=== PATIENT | female | born 2000 | race Caucasian/White ===

== ENCOUNTER 2019-11-25 09:10 | Emergency (ER) | payer OTHER, SELFPAY ==
[2019-11-25 09:24] VITALS: BP 139/73; PULSE 111; RESP 16; TEMP 36.9; O2SAT 99
--- NOTE | 2019-11-25 09:32 | ED.EAR ---
HPI - Ear Problem General Chief complaint: Ear Stated complaint: ear pain Time Seen by Provider: 11/25/19 09:25 Source: patient and RN notes reviewed Mode of arrival: ambulatory Limitations: no limitations History of Present Illness HPI Narrative: Patient presents today with a 2-day history of left ear pain. Reports symptoms have been worsening since onset. Denies drainage. Denies any other symptoms to include fever, cough, congestion, rhinorrhea, sore throat, headache. She has been putting peroxide in her ear without relief. Reports pain increases when she bites down. She also uses Flonase for her seasonal allergies. Patient is currently 33 weeks . Denies any recent antibiotic use. MD Complaint: ear pain Location: left ear Related Data Allergies Allergy/AdvReac Type Severity Reaction Status Date / Time No Known Allergies Allergy Verified 11/25/19 09:36 Review of Systems Review of Systems: Narrative: CONSTITUTIONAL: Denies body aches, fever, chills, or sweats. EYES: Denies visual changes, redness, or discharge. ENT: Denies rhinorrhea, congestion, sore throat. + Left ear pain CARDIOVASCULAR: Denies chest pain, palpitations, or edema. RESPIRATORY: Denies cough or dyspnea. GASTROINTESTINAL: Denies abdominal pain, nausea, vomiting, or diarrhea. GENITOURINARY: Denies dysuria or hematuria. SKIN: Denies rash, itching, or wounds. MUSCULOSKELETAL: Denies back pain, joint pain, or myalgia. NEUROLOGIC: Denies headache, numbness, tingling, or weakness. PSYCH: Denies depression or anxiety. PMFSH Comments At time of signature, I have reviewed and agree with nursing past medical, surgical, social and family history unless otherwise noted. Please see nursing chart for further information. There is no relevant family history pertinent to the presenting complaint Exam Narrative: Exam Narrative: GENERAL: Well-appearing, well-nourished, and in no acute distress. HEAD: Normocephalic, atraumatic. EYES: EOMI. No redness or drainage. Conjunctivae normal. ENT: Mucous membranes pink and moist. Nares clear. No rhinorrhea. Right TM normal. Left TM erythematous and bulging with purulent material. Throat normal. Uvula midline. NECK: Normal AROM. Supple. No lymphadenopathy. CHEST: No respiratory distress. Clear to auscultation. HEART: Regular rate and rhythm. No murmur appreciated. Normal peripheral pulses. ABDOMEN: normal active bowel sounds. Gravid abdomen MUSCULOSKELETAL: No bony tenderness. EXTREMITIES: Normal range of motion. No edema. SKIN: Warm, dry, no rash. Capillary refill normal. Normal skin turgor. NEURO: No focal deficits. Alert and oriented x3. Gait steady. PSYCH: Normal affect. No signs of depression or anxiety. Course Vital Signs Vital signs: Vital Signs Temperature 98.5 F 11/25/19 09:24 Pulse Rate 111 H 11/25/19 09:24 Respiratory Rate 16 11/25/19 09:24 Blood Pressure 139/73 11/25/19 09:24 Pulse Oximetry 99 11/25/19 09:24 Temperature 98.5 F 11/25/19 09:24 Pulse Rate 111 H 11/25/19 09:24 Respiratory Rate 16 11/25/19 09:24 Blood Pressure 139/73 11/25/19 09:24 Pulse Oximetry 99 11/25/19 09:24 Reviewed. Pt has been instructed to follow up with her PCP regarding her elevated blood pressure today. Medical Decision Making Differential Diagnosis Differential Diagnosis: Otitis media, otitis externa, ruptured TM, serous otitis, eustachian tube dysfunction, cerumen impaction, dental pain Vital Signs Vital Signs: Vital Signs Temperature 98.5 F 11/25/19 09:24 Pulse Rate 111 H 11/25/19 09:24 Respiratory Rate 16 11/25/19 09:24 Blood Pressure 139/73 11/25/19 09:24 Pulse Oximetry 99 11/25/19 09:24 Temperature 98.5 F 11/25/19 09:24 Pulse Rate 111 H 11/25/19 09:24 Respiratory Rate 16 11/25/19 09:24 Blood Pressure 139/73 11/25/19 09:24 Pulse Oximetry 99 11/25/19 09:24 Critical Care Time Critical Care Time Critical Care Time: No Discharg
== END 2019-11-25 09:41 | disposition home or self-care (01) ==
PROVIDERS: Emergency Provider Nurse Practitioner
DX: H66.002 Acute suppurative otitis media without spontaneous rupture of ear drum, left ear (principal)
CPT/HCPCS: 99213; G0463

== ENCOUNTER 2020-01-08 05:28 | Inpatient (IN) | payer MEDICAID, SELFPAY ==
[2020-01-08] VITALS (87 sets, daily range): BP systolic 100–149; BP diastolic 54–94; PULSE 80–140; RESP 16; TEMP 36.1–37.1; O2SAT 98–100; BMI 32.8
[2020-01-08 08:33] LABS: Basophils Percent Auto 0.3 % (0.2-1.2); Eosinophils Absolute Auto 0.1 K/mm3 (0-0.3); Eosinophils Percent Auto 0.6 % (0-4.4); Hematocrit 33.8 % (37.0-47.0); Hemoglobin 10.5 g/dL (12.0-15.0); Immature Granulocyte Percent A 0.9 % (0-0.5); Lymphocytes Percent Auto 12.1 % (18.3-44.2); Mean Corpuscular HGB Conc 31.1 g/dl (32-36); Mean Corpuscular Hemoglobin 22.8 pg (26-34); Mean Corpuscular Volume 73.5 fl (80-100); Mean Platelet Volume 9.9 fl (7.4-10.4); Monocytes Absolute Auto 0.8 K/mm3 (0.1-0.6); Monocytes Percent Auto 7.1 % (2.6-8.5); Neutrophils Absolute Auto 9.1 K/mm3 (1.3-6.7); Platelet Count Result 272 k/mm3 (150-375); Red Cell Distribution Width 14.9 % (11.5-14.5); White Blood Count 11.6 K/mm3 (4.5-10.0)
[2020-01-08] MEDS: LACTATED RINGERS 1,000 ML 125 ML IV CONT (08:38)
[2020-01-08] MEDS: OXYTOCIN 30 UNITS/NS 500 ML 30 UNITS/500 ML BAG IV CONT (08:39)
--- NOTE | 2020-01-08 08:51 | LDADM ---
This patient, Janeth Peter, was admitted to Labor/Delivery/Recovery 105 on 01/08/20 at 05:28. Plans for labor, pain management and were discussed with patient. Patient/family oriented to hospital policies and general routines including ID bracelet, bed and alarms, visiting hours, pain management, procedures, bathroom and other care routines, personal items, smoking policy, room service/diet and guest tray routines, infant security routines, and visiting hours. Patient/Family are encouraged to report perceived risks to care and to ask questions if they do not understand what they are told or what they should do. See OBIX for further documentation.
--- NOTE | 2020-01-08 10:18 | WPDHPUPDATE1 ---
History and Physical Update Update Date/Time: 01/08/20 10:18 19 yo at 39w3d who presents in labor. She reports regular contractions starting since 0300. She denies any LOF or vaginal bleeding. She endorses good FM. her has been uncomplicated thus far. History and Physical has been reviewed, including an updated exam of the patient. There are NO changes in the patient's condition. Risks, benefits, and alternatives have been discussed and questions answered. Patient agrees to proceed with procedure. A/P: 19 yo at 39w3d who presents in labor admit to L&D routine admission orders Rh + GBS neg FHT cat 1 ctx q 5-7 min on toco will start pitocin for labor augmentation cvx 3 cm, AROM for clear fluid continuous EFM
--- NOTE | 2020-01-08 11:06 | WPDANESEPP ---
Anes - Eval Pre Procedure Procedure: Labor Pain Management Date/Time: 01/08/20 11:06 Surgeon: True Preop Diagnosis: Pain during labor Pre Op Diagnosis: Labor Patient Data Age: 19 Gender: F Height: 5 ft 8 in Weight: 97.75 kg Last Vital Signs Temp 98.5 F 01/08/20 10:00 Pulse 96 01/08/20 11:01 BP 121/77 01/08/20 11:01 Allergies Allergy/AdvReac Type Severity Reaction Status Date / Time No Known Allergies Allergy Verified 11/25/19 09:36 Home Medications Medication Instructions Recorded Confirmed Type No Home Medications 01/08/20 01/08/20 History Laboratory Tests 01/08/20 01/08/20 01/08/20 08:15 08:15 08:15 WBC 11.6 K/mm3 H K/mm3 (4.5-10.0) RBC 4.60 M/mm3 M/mm3 (4.2-5.4) Hgb 10.5 g/dL L g/dL (12.0-15.0) Hct 33.8 % L % (37.0-47.0) MCV 73.5 fl L fl (80-100) MCH 22.8 pg L pg (26-34) MCHC 31.1 g/dl L g/dl (32-36) RDW 14.9 % H % (11.5-14.5) Plt Count 272 k/mm3 k/mm3 (150-375) MPV 9.9 fl fl (7.4-10.4) Immature Gran % (Auto) 0.9 % H % (0-0.5) Neut % (Auto) 79.0 % H % (45.5-73.1) Lymph % (Auto) 12.1 % L % (18.3-44.2) [place] % (Auto) 7.1 % % (2.6-8.5) Eos % (Auto) 0.6 % % (0-4.4) Baso % (Auto) 0.3 % % (0.2-1.2) Lymph # (Auto) 1.40 K/mm3 K/mm3 (0.9-3.2) [place] # (Auto) 0.8 K/mm3 H K/mm3 (0.1-0.6) Eos # (Auto) 0.1 K/mm3 K/mm3 (0-0.3) Baso # (Auto) 0.0 K/mm3 K/mm3 (0.0-0.1) Abs Immat Gran (auto) 0.10 K/mm3 H K/mm3 (0.00-0.031) Absolute Neuts (auto) 9.1 K/mm3 H K/mm3 (1.3-6.7) Absolute Nucleated RBC 0.0 K/mm3 K/mm3 (0.0-0.012) Nucleated RBC % 0.0 % % (0.0-0.2) RPR Pending Blood Type O Positive Antibody Screen Negative : gestational age (EDC 01/12/20) Patient hx anesthesia problems: none Family hx anesthesia problems: none PMFSH Past Medical History Medical History (Updated 01/08/20 @ 11:08 by Kristen Riddle CRNA) Anxiety Asthma seasonal Depression Miscarriage Recurrent UTI Surgical History Surgical History (Updated 01/08/20 @ 11:08 by Kristen Riddle CRNA) History of elective X 2 Family History Family History (Updated 12/19/19 @ 14:34 by Karthik Chang RN) Father Asthma Heart disease Hypertension Mother Asthma Sibling Asthma VSD (ventricular septal defect) Epilepsy Social History Social History Smoking status: Never smoker Substance use: never Gender identity (if verbalized by the patient): Female Spiritual care concerns: No Exam Day of Procedure 01/08/20 11:06
--- NOTE | 2020-01-08 16:38 | PM.OBPRVD ---
OB - Delivery Note Procedure Procedure: Patient pushed for a spontaneous vaginal delivery. The fetus was delivered atraumatically and placed on the maternal abdomen. The cord was clamped and cut after 1 minute of life. The cord was double clamped and cut and a segment of cord was collected for cord gases. Cord blood was collected for blood type and Coomb's testing. The placenta delivered spontaneously and was noted to be intact. The perineum was inspected and there was a 2nd degree perineal laceration. The laceration was repaired with 2-0 vicryl in the usual fashion. The uterus was firm and good hemostasis was noted. The patient and fetus were stable in the delivery room. Intrapartal events: None Induction method: none Delivery augmentation: rupture of membranes and pitocin Delivery monitor: external FHT Route of delivery: Episiotomy description: None Laceration description: Perineal - 2nd Degree Delivery repair: vicryl Specimen: No Estimated blood loss (mL): 250 Disposition: floor () Complications: No immediate complications Baby Date of : 01/08/20 Time of : 16:20 Weeks of gestation at delivery: 39 gender: Male Weight (pounds): 7 Weight (ounces): 8 presentation: vertex position: Right Occiput Anterior Placenta delivery description: Spontaneous cord vessel description: 3 Vessels score one minute: 8 score five minutes: 9
[2020-01-08] MEDS: OXYTOCIN 30 UNITS/NS 500 ML 30 UNITS/500 ML BAG 125 UNITS (17:22)
--- NOTE | 2020-01-08 19:33 | OBPPTRN ---
Patient transferred to post room #284 via wheelchair. Support person present. Oriented to unit, room, information board, rooming in, admission packet and security measures. Patient verbalizes understanding.Infant with patient.
[2020-01-08] MEDS: IBUPROFEN 600 MG TABLET PO (23:40)
[2020-01-09] MEDS: ACETAMINOPHEN 325 MG TABLET 650 MG PO (04:43)
[2020-01-09 05:54] LABS: Hematocrit 27.5 % (37.0-47.0); Hemoglobin 8.5 g/dL (12.0-15.0)
--- NOTE | 2020-01-09 07:03 | P.PNOB_ITS ---
OB - PN: Subj Subjective Date/time seen: 01/09/20 07:03 Patient comments: no complaints, pain well controlled and tolerating diet [place] feeding status: exclusively breast feeding Narrative: patient doing well this AM. No complaints. Pain is well controlled. She reports minimal bleeding. She is ambulating and voiding without difficulty. She is tolerating PO. She denies N/V, fever, chills. OB - PN: Obj Data Labs CBC & Chem 7: 01/09/20 04:36 Labs: Laboratory Results - last 24 hr 01/08/20 01/08/20 01/09/20 08:15 08:15 04:36 WBC 11.6 H RBC 4.60 Hgb 10.5 L 8.5 L Hct 33.8 L 27.5 L MCV 73.5 L MCH 22.8 L MCHC 31.1 L RDW 14.9 H Plt Count 272 MPV 9.9 Immature Gran % (Auto) 0.9 H Neut % (Auto) 79.0 H Lymph % (Auto) 12.1 L [place] % (Auto) 7.1 Eos % (Auto) 0.6 Baso % (Auto) 0.3 Lymph # (Auto) 1.40 [place] # (Auto) 0.8 H Eos # (Auto) 0.1 Baso # (Auto) 0.0 Abs Immat Gran (auto) 0.10 H Absolute Neuts (auto) 9.1 H Absolute Nucleated RBC 0.0 Nucleated RBC % 0.0 Blood Type O Positive Antibody Screen Negative OB - PN A/P Plan day: 1 Plan: routine care Comments: patient doing well H/H stable plan for circumcision today, maternal consent obtained continue routine care Time Spent With Patient Time: Total time spent is greater than 50% in coordination of care (as documented) at patient's floor/unit and/or counseling patient: Time with patient: less than 15 minutes Review of Systems Review of Systems: All systems reviewed & are unremarkable except as noted in HPI and below Exam Const: General: comfortable and no acute distress Resp: Effort & Inspection: normal respiratory effort Cardio: Rate: regular rate GI: GI Palp: Yes Soft to palpation and No Tenderness to palpation present (GI) Auscultation: normal bowel sounds Other: fundus firm and below umbilicus. Psych: Affect: normal affect
[2020-01-09 07:34] LABS: Rapid Plasma Reagin Non-Reactive (NonReactive)
[2020-01-09 08:25] VITALS: BP 115/68; PULSE 89; RESP 16; TEMP 36.8; O2SAT 100
[2020-01-09] MEDS: POLYSACCHARIDE IRON COMPLEX 150 MG CAPSULE PO (08:49)
[2020-01-09] MEDS: DOCUSATE SODIUM 100 MG CAPSULE PO (08:52)
--- NOTE | 2020-01-09 09:35 | WPDANLDPN2 ---
Anes-Prog Note L&D Date/Time: 01/09/20 09:35 Comfortable throughout: labor and delivery Neuraxial method: epidural Epidural/Spinal procedure site: clean & non-tender Neuro status: Neuro function grossly intact. Cardiovascular status: normal Respiratory status: normal Airway patency: baseline Mental status: baseline Post-Op hydration status: normal Vital Signs: Last Vital Signs Temp 36.8 C 01/09/20 08:25 Pulse 89 01/09/20 08:25 Resp 16 01/09/20 08:25 BP 115/68 01/09/20 08:25 Pulse Ox 100 01/09/20 08:25 I/O: Intake & Output 01/08/20 01/09/20 01/09/20 23:59 07:59 15:59 Intake Total 1500 Output Total 100 Balance 1400 Post-procedural complaints: none Patient feedback: Patient satisfied with anesthetic care.
--- NOTE | 2020-01-09 11:44 | P.DS_ITS ---
OB - DS: Summary OB Procedures : None OB Procedures Intrapartum: Spontaneous Vag Delivery OB Procedures: : None Status at Discharge Functional status at discharge: independent ambulation Overall status at discharge: patient is back to baseline Time Spent with Patient Time attestation: Total time spent providing and/or coordinating discharge services: Time spent: Less than 30 minutes Exam Const: General: comfortable and no acute distress Resp: Effort & Inspection: normal respiratory effort Auscultation: clear to auscultation bilaterally Cardio: Rate: regular rate GI: GI Palp: Yes Soft to palpation Auscultation: normal bowel sounds Other: Fundus firm below umbilicus Psych: Appearance: grossly normal Mental Status: mental status grossly normal Affect: normal affect DS: Data Data Completed and Pending Labs on day of discharge: Labs from last 24 hours 01/09/20 01/08/20 04:36 08:15 Hgb 8.5 L Hct 27.5 L RPR Non-reactive Discharge Plan Discharge Discharging Clinician: Zain Biswas Patient Disposition: Home, Self-Care Activity: pelvic rest Diet: regular Discharge Instructions: call or return for temperature >100.4, bleeding >2 pads/hr for 2 hrs, pain not controlled with medications, signs/symptoms of mastitis Patient Instructions: Antibiotic Form, Vaginal Delivery (DC) Stand Alone Forms: General Discharge Information Follow-up/Referrals: Zain Biswas MD [Physician] - Discharge Medications: New acetaminophen [Mapap (acetaminophen)] 325 mg Tablet 650 mg PO Q6H PRN (Reason: Mild Pain (1-3) Or Headache) Qty: 30 RF: 0 Dermoplast (with menthol) 20-0.5 % Aerosol 1 spray topical PRN PRN (Reason: Perineal Discomfort) Qty: 1 RF: 0 ibuprofen 600 mg Tablet 600 mg PO Q6H PRN (Reason: Cramping) Qty: 30 RF: 0 No Action No Home Medications RF: 0 Date of admission: 01/08/20 05:28 Primary Care Provider: PHYSICIAN,LIFE INSURANCE AGENT Admitting Provider: Zain Biswas Attending physician on admission: Zain Biswas
[2020-01-09] MEDS: IBUPROFEN 600 MG TABLET PO (15:33)
[2020-01-10 12:58] VITALS: BP 116/65; PULSE 97; RESP 20; TEMP 36.3; O2SAT 100
== END 2020-01-09 17:24 | disposition home or self-care (01) | DRG 560 ==
LOC: ANHLDR 08:07 → ANHOB2 19:37
PROVIDERS: Admitting Provider Student in an Organized Health Care Education/Training Program; Visit Provider Student in an Organized Health Care Education/Training Program
DX: O70.1 Second degree perineal laceration during delivery (principal); Z3A.39 39 weeks gestation of pregnancy; Z37.0 Single live birth
CPT/HCPCS: 36415; 85014; 85018; 85025; 86592; 86850; 86900; 86901; A9270; J2590; J2795; J7120

== ENCOUNTER 2022-01-20 08:04 | Emergency (ER) | payer OTHER, SELFPAY ==
--- NOTE | 2022-01-20 08:05 | ED.URI ---
HPI - URI/Sore Throat General Chief Complaint: Upper Respiratory Infection Stated Complaint: uri Time Seen by Provider: 01/20/22 08:05 Source: patient Mode of arrival: ambulatory Limitations: no limitations History of Present Illness HPI Narrative: Ms. Peter is a 21-year-old female patient presenting to the clinic today with complaints of possible upper respiratory infection. She reports cough, congestion, sore throat, and bilateral ear pressure/pain x 4 days. She denies any fever or chills. Has tested for Covid twice and was negative. Last test was yesterday. No known exposure to anyone with covid, strep, or flu. MD elicited complaint: sore throat and nasal congestion Related Data Allergies Allergy/AdvReac Type Severity Reaction Status Date / Time No Known Allergies Allergy Verified 01/20/22 08:10 Review of Systems Review of Systems: Pertinent positives per HPI. Patient denies any fever, chills, rash, headache, visual changes, dizziness, shortness of breath, chest pain, palpitations, nausea, vomiting, diarrhea, constipation, abdominal pain, or any urinary issues. [facility] Past Medical History Medical History Anxiety Asthma seasonal Depression Miscarriage Recurrent UTI Surgical History Surgical History History of elective X 2 Family History Family History Father Asthma Heart disease Hypertension Mother Asthma Sibling Asthma VSD (ventricular septal defect) Epilepsy Social History Social History Smoking status: Never smoker Substance use: never Gender identity (if verbalized by the patient): Female Spiritual care concerns: No Comments At the time of my signature, I reviewed and agree with the nursing past medical, surgical, social, and family history. There is no relevant family history pertinent to the patient complaint. Exam Narrative: General: Well-developed, obese, in no apparent distress Head: Normocephalic, atraumatic Eyes: Pupils equally round and reactive to light bilaterally, EOM intact, sclera and conjunctive clear, no discharge, lids normal Ears: TMs intact, dull, congested with mild bulging, ear canals clear, no drainage, grossly hearing normal. Nose: Nares patent, green nasal discharge, mild inflammation, no sinus tenderness. Mouth: Oral pharynx without lesions or masses, good dentition, MMM, PND Neck: Supple, trachea midline, no enlargement of anterior or posterior cervical nodes, no thyroid masses or goiter palpable. Cardio: Regular rate and rhythm, s1 and s2 normal, no murmur appreciated. Resp: Clear to auscultation bilaterally, no rhonchi, rales, wheezing or rubs Course Course Emergency Course: Portions of this record may have been created with voice recognition software. Level of Care: Express Care Visit Vital Signs Vital signs: Vital signs reviewed MDM - URI/Sore Throat MDM Narrative Medical decision making narrative: At the time of visit patient is resting comfortably on exam table. Patient COVID tested yesterday and was negative. Strep screen was obtained today in the clinic and was negative for strep. I suspect the patient has an upper respiratory infection with postnasal drip and eustachian tube dysfunction and we will give her a prescription for some prednisone to help with congestion and drainage. Supportive measures were discussed with the patient she voiced understanding of discharge instructions and agrees to treatment plan. Differential Diagnosis Differential diagnosis: Likely upper respiratory infection, sinusitis, viral infection, bronchitis, influenza, pharyngitis and other (COVID) Discharge Plan Discharge Clinical Impression: Upper respiratory infection, PND (po
[2022-01-20 08:15] VITALS: BP 136/71; PULSE 71; RESP 18; TEMP 36.4; O2SAT 100
== END 2022-01-20 08:30 | disposition home or self-care (01) ==
PROVIDERS: Emergency Provider Nurse Practitioner Family
DX: J06.9 Acute upper respiratory infection, unspecified (principal); R09.82 Postnasal drip; H69.93 Unspecified Eustachian tube disorder, bilateral; J45.909 Unspecified asthma, uncomplicated
CPT/HCPCS: 87081; 87880; 99213; G0463

== ENCOUNTER 2022-11-03 11:15 | Emergency (ER) | payer OTHER, SELFPAY ==
--- NOTE | 2022-11-03 11:20 | ED.URI ---
HPI - URI/Sore Throat General Chief Complaint: Upper Respiratory Infection Stated Complaint: Sore Throat Time Seen by Provider: 11/03/22 11:20 Source: patient Mode of arrival: ambulatory Limitations: no limitations History of Present Illness HPI Narrative: Patient is a 19-year-old female who presents with sore throat, congestion, for 10 days. Patient has been on 500 mg Keflex twice a day for 7 days with no relief. Patient states she constantly feels drainage down the back of her throat. Denies any fever, chills, ear pain, sinus pressure, nausea, vomiting, diarrhea. States she has been using a daily Flonase but no other allergy medicine. Reports she is allergic to pollen. Related Data Allergies Allergy/AdvReac Type Severity Reaction Status Date / Time No Known Allergies Allergy Verified 11/03/22 11:30 Review of Systems Review of Systems: All systems reviewed & are unremarkable except as noted in HPI and below Constitutional: Constitutional: Denies body ache(s), Denies chills, Denies fatigue, Denies fever(s), Denies headache(s), Denies malaise and Denies weakness Eyes: Eyes: Denies blurry vision, Denies itchy eyes and Denies loss of vision ENT: Denies otalgia, Denies headache(s), Reports nasal congestion, Denies sinus pain and Reports sore throat Cardiovascular: Cardiovascular: Denies chest pain, Denies irregular heart rhythm and Denies dyspnea Respiratory: Respiratory: Reports cough and Denies dyspnea Gastrointestinal: Gastrointestinal: Denies abdominal pain, Denies diarrhea, Denies nausea and Denies vomiting Musculoskeletal: Musculoskeletal: Denies back pain, Denies myalgias and Denies arthralgias Integumentary/Breasts: Skin/Breast: Denies pruritus and Denies rash Neurologic: Denies headache(s), Denies loss of vision and Denies weakness Psychiatric: Psychiatric: Reports no additional psychiatric complaints Endocrine: Endocrine: Denies fatigue Allergic/Immunologic: Allergic/Immunologic: Denies itchy eyes PMFSH Past Medical History Medical History Anxiety Asthma seasonal Depression Miscarriage Recurrent UTI Surgical History Surgical History History of elective X 2 Family History Family History Father Asthma Heart disease Hypertension Mother Asthma Sibling Asthma VSD (ventricular septal defect) Epilepsy Social History Social History Smoking status: Never smoker Substance use: never Gender identity (if verbalized by the patient): Female Spiritual care concerns: No Comments At time of signature, agree with nursing past medical, surgical, social and family history. There is no relevant family history pertinent to the presenting complaint. Exam Const: General: cooperative, healthy appearing, comfortable, no acute distress and well nourished Nutritional Appearance: well nourished Orientation/consciousness: patient oriented x3 Limitations: no limitations HENMT: Head: normal to inspection, normocephalic and atraumatic Ears: hearing grossly normal bilaterally, external ears normal, TM's normal bilaterally, EAC's normal and no periauricular adenopathy Face/Nose/Sinus: Normal external nose present, Abnormal mucous membranes and turbinates present erythematous bilateral and diffuse, normal facial exam, sinuses nontender and face symmetric Face and sinus: normal facial exam, sinuses nontender and face symmetric Mouth: Yes Normal oral and palatal mucosa present, Yes lip normal, Yes tongue normal, Yes Normal salivary glands and ducts present, Yes oropharynx normal and Yes moist mucous membranes Teeth and gingiva: dentition normal Throat: uvula midline, abnormal tonsil bilateral erythema and hypertrophy 1+, posterior orop
[2022-11-03 11:28] VITALS: BP 123/80; PULSE 83; RESP 16; TEMP 36.8; O2SAT 100
== END 2022-11-03 11:53 | disposition home or self-care (01) ==
PROVIDERS: Emergency Provider Nurse Practitioner Family
DX: J06.9 Acute upper respiratory infection, unspecified (principal); J45.909 Unspecified asthma, uncomplicated
CPT/HCPCS: 87880; 99213; G0463

== ENCOUNTER 2023-02-27 14:25 | Observation (INO) | payer OTHER, SELFPAY ==
[2023-02-27 14:30] VITALS: BMI 28.1
--- NOTE | 2023-02-27 14:30 | OBADM ---
This patient, Janeth Peter, admitted to the OB room OB Post 112 for observation. Patient/family oriented to hospital policies and general routines including ID bracelet, bed and alarms, visiting hours, pain management, procedures, bathroom and other care routines, personal items, smoking policy, room service/diet, and visiting hours. Patient/Family are encouraged to report perceived risks to care and to ask questions if they do not understand what they are told or what they should do.
[2023-02-27 15:04] VITALS: BP 111/62; PULSE 77
[2023-02-27] MEDS: THIAMINE HCL INJ 100 MG, FOLIC ACID INJ 1 MG, MULTIVITAMINS-12 INJ VIAL 1 5 ML, MULTIVI... 150 MG IV CONT (16:04)
[2023-02-27] MEDS: PROMETHAZINE HCL 25 MG/ML AMPUL 12.5 MG IV PUSH (16:05)
[2023-02-27 19:36] VITALS: BP 100/49; PULSE 69
[2023-02-27 19:37] VITALS: PULSE 72; O2SAT 98
--- NOTE | 2023-02-27 19:40 | PC.NURSE ---
1937- pt currently resting in bed. IV fluids still running. Pt has no questions or concerns at this time. Partner at bedside.
--- NOTE | 2023-02-27 23:57 | PM.OBTRLD ---
OB - Triage/Final Diagnosis Visit Information Date of evaluation: 02/27/23 Reason for evaluation: other (Hyperemesis gravidarum) Comments/Additional reasons for admission: I have assessed the risk for this patient, Janeth Peter, and determined that she would benefit from observation care. Evaluation Vital signs: Vital Signs - 24 hr 02/27/23 15:04 02/27/23 19:36 02/27/23 19:37 Pulse Rate 77 69 Blood Pressure 111/62 100/49 L Pulse Oximetry 98
== END 2023-02-27 20:36 | disposition home health service (06) ==
PROVIDERS: Admitting Provider Obstetrics & Gynecology; Visit Provider Obstetrics & Gynecology
DX: O21.0 Mild hyperemesis gravidarum (principal); Z3A.01 Less than 8 weeks gestation of pregnancy
CPT/HCPCS: 96374; 96375; G0378; G0379; J2550; J3411; J3475; J7121

== ENCOUNTER 2023-07-28 08:37 | Emergency (ER) | payer OTHER, SELFPAY ==
--- NOTE | 2023-07-28 08:49 | ECG_ITS ---
Measurements Intervals [place] Rate: 84 P: 53 ND: 174 QRS: 61 QRSD: 88 T: 43 QT: 367 QTc: 434 Interpretive Statements POOR QUALITY ELECTROCARDIOGRAM BECAUSE OF BASELINE ARTIFACT SINUS RHYTHM GROSSLY NORMAL TRACE NO PREVIOUS ECG AVAILABLE FOR COMPARISON Electronically Signed On 07-28-2023 15:33:11 PUBLISHING AGENT by Aba Lott M.D.
[2023-07-28 08:54] VITALS: BP 135/87; PULSE 94; RESP 16; TEMP 37.4; O2SAT 99
--- NOTE | 2023-07-28 08:59 | ED.ARRPALP ---
HPI - Arrhythmia/Palpitations General Chief Complaint: Arrhythmia/Palpitations Stated Complaint: heart palpatations , feeling of passing out Source: patient, RN notes reviewed and old records reviewed Mode of arrival: ambulatory Limitations: no limitations History of Present Illness HPI narrative: 23-year-old female presents to [facility] with complaints palpitations this started patient denies symptoms at this time but states when they do occur she feels like heart is skipping a beat and feels like she may pass out. Related Data Allergies Allergy/AdvReac Type Severity Reaction Status Date / Time No Known Allergies Allergy Verified 07/28/23 08:48 Review of Systems Constitutional: Constitutional: Reports no additional constitutional complaints, Denies body ache(s), Denies chills, Denies fatigue, Denies fever(s) and Denies headache(s) Eyes: Eyes: Reports no additional eye complaints and Denies blurry vision ENT: Reports system reviewed and no additional complaints, except as documented, Denies vertigo, Denies dizziness, Denies ear discharge, Denies otalgia, Denies facial pain, Denies headache(s), Denies nasal congestion, Denies nasal discharge, Denies sinus pain, Denies sinus pressure and Denies sore throat Cardiovascular: Cardiovascular: Reports no additional cardiovascular complaints, Denies chest pain, Denies chest pain at rest, Denies rapid heart rate and Denies dyspnea Respiratory: Respiratory: Reports no additional respiratory complaints, Denies chest congestion, Denies cough, Denies pain on inspiration, Denies pain with cough and Denies dyspnea Gastrointestinal: Gastrointestinal: Denies abdominal pain, Denies diarrhea, Denies nausea and Denies vomiting Integumentary/Breasts: Skin/Breast: Denies rash Neurologic: Reports system reviewed and no additional complaints, except as documented, Denies vertigo, Denies dizziness and Denies headache(s) Endocrine: Endocrine: Denies fatigue PMF Past Medical History Medical History Anxiety Asthma seasonal Depression Miscarriage Recurrent UTI Surgical History Surgical History History of elective X 2 Family History Family History Father Asthma Heart disease Hypertension Mother Asthma Sibling Asthma VSD (ventricular septal defect) Epilepsy Social History Social History Smoking status: Never smoker Substance use: never Gender identity (if verbalized by the patient): Female Spiritual care concerns: No Comments At the time of my signature, I reviewed and agree with the nursing past medical, surgical, social, and family history. There is no relevant family history pertinent to the patient complaint. Exam Const: General: cooperative, healthy appearing, no acute distress and well nourished Nutritional Appearance: well nourished Orientation/consciousness: patient oriented x3 Limitations: no limitations HENMT: Head: normal to inspection and normocephalic Ears: external ears normal, TM's normal bilaterally, mastoids normal and Abnormal EAC present Face/Nose/Sinus: normal facial exam Face and sinus: normal facial exam Mouth: Yes Normal oral and palatal mucosa present, Yes oropharynx normal and Yes moist mucous membranes Throat: tonsils normal, uvula midline and no uvular edema Eyes: General: appearance normal, both eyes and all related structures Sclera: sclerae normal Pupils: Equal, round and reactive pupils present Resp: Effort & Inspection: normal respiratory effort, able to speak in complete sentences, no audible wheezes, no cough, no respiratory distress and no retractions Auscultation: clear to auscultation bilaterally, no crackles, no rales, no rhonchi and no wheezes Card
[2023-07-28 09:15] VITALS: BP 126/64
[2023-07-28 09:16] VITALS: BP 129/86; BP 137/77
== END 2023-07-28 09:41 | disposition short-term general hospital (02) ==
PROVIDERS: Emergency Provider Registered Nurse
DX: R00.2 Palpitations (principal); R55 Syncope and collapse; J45.909 Unspecified asthma, uncomplicated
CPT/HCPCS: 93005; 99213; G0463

== ENCOUNTER 2023-10-14 23:02 | Emergency (ER) | payer OTHER, SELFPAY ==
--- NOTE | 2023-10-14 23:06 | ECG_ITS ---
SEE SCANNED COPY FOR CONFIRMED REPORT MTDD
[2023-10-14 23:08] VITALS: BP 149/94; PULSE 78; RESP 19; TEMP 36.3; O2SAT 100
[2023-10-15 00:03] LABS: Influenza A QL RT-PCR Negative (Negative); Influenza B QL RT-PCR Negative (Negative); RSV RNA, RT-PCR Negative (Negative); SARS-CoV-2 RNA PCR Negative (Negative)
--- NOTE | 2023-10-15 01:00 | ED.GENADULT ---
HPI - General Adult General Chief complaint: Upper Respiratory Infection Stated complaint: hoarseness History of Present Illness HPI narrative: This is a 23-year-old female presenting ED with chief complaint hoarse voice. Over the last 3 4 days she has been having URI symptoms. The improving but now she has lost her voice. Patient was concerned she might be developing pneumonia. Patient denies fevers chills congestion sore throat chest pain. Related Data Allergies Allergy/AdvReac Type Severity Reaction Status Date / Time No Known Allergies Allergy Verified 10/14/23 23:10 [facility] Past Medical History Medical History Anxiety Asthma seasonal Depression Miscarriage Recurrent UTI Surgical History Surgical History History of elective X 2 Family History Family History Father Asthma Heart disease Hypertension Mother Asthma Sibling Asthma VSD (ventricular septal defect) Epilepsy Social History Social History Smoking status: Never smoker Substance use: never Gender identity (if verbalized by the patient): Female Spiritual care concerns: No Exam Narrative: APPEARANCE: No apparent distress. Well-appearing Head: mild erythema of the posterior oropharynx without any sort exudate. EYES: EOMI, NOSE: Atraumatic NECK: Trachea midline RESPIRATORY: No increased rate of breathing Clear to auscultation, speaking in full sentences CARDIOVASCULAR: RRR, ABDOMINAL: Non-distended MUSCULOSKELETAl: No obvious deformities NEURO: Alert. Moving 4/4 extremities SKIN:: Warm, dry. Normal color PSYCHIATRIC: Normal affect Course Vital Signs Vital signs: Vital Signs Temperature 97.3 F L 10/14/23 23:08 Pulse Rate 78 10/14/23 23:08 Respiratory Rate 19 10/14/23 23:08 Blood Pressure 149/94 H 10/14/23 23:08 Pulse Oximetry 100 10/14/23 23:08 Oxygen Delivery Room Air 10/14/23 23:08 Temperature 97.3 F L 10/14/23 23:08 Pulse Rate 78 10/14/23 23:08 Respiratory Rate 19 10/14/23 23:08 Blood Pressure 149/94 H 10/14/23 23:08 Pulse Oximetry 100 10/14/23 23:08 Oxygen Delivery Room Air 10/14/23 23:08 Medical Decision Making MDM Narrative Medical decision making narrative: -Course: 23-year-old female presenting with URI symptoms. Patient's symptoms are all improving. She is concerned about pneumonia because she has subjective shortness of breath, here she she is speaking in full sentences, she is 100% on room air and has clear lungs. No concern for pneumonia at this time. Patient discharged primary care follow-up return precautions -DDX includes but is not limited to: URI, viral syndrome Vital Signs Vital Signs: Vital Signs Temperature 97.3 F L 10/14/23 23:08 Pulse Rate 78 10/14/23 23:08 Respiratory Rate 19 10/14/23 23:08 Blood Pressure 149/94 H 10/14/23 23:08 Pulse Oximetry 100 10/14/23 23:08 Oxygen Delivery Room Air 10/14/23 23:08 Temperature 97.3 F L 10/14/23 23:08 Pulse Rate 78 10/14/23 23:08 Respiratory Rate 19 10/14/23 23:08 Blood Pressure 149/94 H 10/14/23 23:08 Pulse Oximetry 100 10/14/23 23:08 Oxygen Delivery Room Air 10/14/23 23:08 Lab Data Labs: Lab Results 10/14/23 Range/Units 23:12 Influenza A (RT-PCR) Negative (Negative) Influenza B (RT-PCR) Negative (Negative) RSV (RT-PCR) Negative (Negative) SARS-CoV-2 RNA (RT-PCR) Negative (Negative) Discharge Plan Discharge Clinical Impression: URI (upper respiratory infection) Patient Disposition: Home, Self-Care Condition: Stable Instructions: Antibiotic Form, Viral Syndrome (ED) Additional Instructions: please take Motrin Tylenol for pain. Please follow-up your pr
[2023-10-15 01:16] VITALS: BP 120/77; PULSE 87; RESP 14; O2SAT 99
[2023-10-15 01:25] VITALS: O2SAT 99
== END 2023-10-15 01:31 | disposition home or self-care (01) ==
PROVIDERS: Physician Assistant; Emergency Provider Emergency Medicine
DX: J06.9 Acute upper respiratory infection, unspecified (principal); J45.909 Unspecified asthma, uncomplicated; Z20.822 Contact with and (suspected) exposure to COVID-19; Z87.440 Personal history of urinary (tract) infections
CPT/HCPCS: 87637; 93005; 99283

== ENCOUNTER 2024-08-03 12:43 | Emergency (ER) | payer OTHER, SELFPAY ==
--- NOTE | ~2024-08-03 | US_ITS ---
EXAMINATION: US OB <=14 wk fetus w TV DATE: 08/03/2024 17:15 LAND RECLAMATION SPECIALIST INDICATION: Lower abdominal pain and vaginal bleeding COMPARISON: 03/20/2024 TECHNIQUE: Real-time transabdominal obstetric ultrasound. FINDINGS: 5 para 1 Last menstrual period is given as 06/18/2024 which provides an approximate gestational age of 6 weeks and 4 days by last menstrual period. Estimated date of delivery by last menstrual period is 03/25/2025. Quantitative serum beta hCG is only 419, which is low given the date of patient's last menstrual chiki od. The uterus measures 8.5 x 3.7 x 3.3 cm. No gestational sac is visualized within the uterus. The endometrium measures 6 mm. The right ovary is unremarkable in echogenicity and size and measures 3.1 x 1.3 x 1.5 cm. The left ovary measures 6.9 x 5.5 x 7.1 cm. The left adnexa contains a large anechoic avascular structure measuring 5.2 x 7.1 x 6.2 cm. A mural focus of increased echogenicity is also detected measuring 14 x 9 x 12 mm. These structures taken together may represent a dermoid cyst. Trace free fluid within the posterior cul-de-sac. IMPRESSION: A gestational sac is typically visible on ultrasound when the quantitative serum beta hCG is between 1500 - 2,000 nabila - international units per milliliter. This is typically approximately 4-5 weeks in to a . With a serum beta hCG of less than thousand, the lack of a gestational sac is not abnormal. Findings within the left ovary may represent a dermoid cyst for which ELECTRIC DISTRIBUTION ENGINEER follow-up is recommended. Short-term follow-up is recommended to evaluate the intrauterine gestation once the serum beta hCG in creases. Reviewed, dictated and finalized at location A. RECLAMATION SPECIALIST IMPRESSION: A gestational sac is typically visible on ultrasound when the quantitative seru m beta hCG is between 1500 - 2,000 nabila - international units per milliliter. This is typically approximately 4-5 weeks into a . With a serum beta hCG of less than thousand, the lack of a gestational sac is n ot abnormal. Findings within the left ovary may represent a dermoid cyst for which ELECTRIC DISTRIBUTION ENGINEER follo w-up is recommended. Short-term follow-up is recommended to evaluate the intrauterine gestation once the serum beta hCG increases.
--- OUTSIDE RECORDS SUMMARY | 2024-08-03 12:45 | XMS_ITS | Encounter Summary ---
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 Name Role Phone Marcie Pollard CONTACT LENS INSPECTOR Primary Care Provider + Encounter Details Date Type Department Care Team (Late st Contact Info) Description 05/16/2022 [facility] Message Enc [facility] Family [facility] - [place] [address] [place] [address] [facility] Schedule Appointment: Annual Physical Due Social History Tobacco Use Types Packs/Day Years Used Date Smoking Tobacco: Never Smokeless Tobacco: Never Alcohol Use Standard Drinks/Week Comments Yes 0 (1 standard drink = 0.6 oz pur e alcohol) ocassionally PHQ-2 Answer Date Recorded PHQ-2 Score - If the patient scores above 3, please move on to questions 3-9 0 05/03/2021 Comments No Sex and Gender Information Value Date Recorded Sex Assigned at Not on file Legal Sex Female 7:26 PM CDT Gender Identity Not on file Sexual Orientation Not on file documented as of this encounter Plan of Treatment Not on file documented as of this encounter Visit Diagnoses Not on filedocumented in this encounter Additional Health Concerns Infection Onset Date Last Indicated Resolved Time COVID-19 Rule Out 05/12/2024 05/13/2024 05/13/2024 12:35 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
--- OUTSIDE RECORDS SUMMARY | 2024-08-03 12:45 | XMS_ITS | Clinical Summary ---
Author Organization [facility] Address [facility] [place] [address] Care Team Providers Care Pilot Plant Operator Helper Name Role Phone Marcie Pollard NP Primary Care Provider [phone] Allergies No known active allergies Medications busPIRone (BUSPAR) 10 MG tabletIndicatio ns:Anxiety Take 1 tablet (10 mg total) by mouth 2 (two) times daily. 60 tablet 2 02/23/2024 Active omeprazole (PRILOSEC) 20 MG capsule Take 1 capsule (20 mg total) by mouth daily. 30 capsule 05/05/2024 Active Active Problems Problem Noted Date Diagnosed Date Hypercalciuria 06/06/2016 Anxiety disorder 09/15/2015 Resolved Problems Problem Noted Date Diagnosed Date Resolved Date Breast lump or mass 09/28/2016 05/03/20 21 Voiding dysfunction 06/06/2016 05/03/20 21 Raynauds phenomenon 06/26/2015 05/03/20 21 Recurrent urinary tract infection 06/26/2015 05/03/2021 Encounters Date Type Department Care Team Description 05/13/2024 Travel 05/12/2024 10:44 PM [employer]SC[employer] DEVELOPER - 05/13/2024 1:34 AM [facility] Emergency [facility] [place] [address] Janet Otero PA Vaginal Pain Discharge Disposition: Home or Self Care (Routine Discharge) 05/12/2024 Travel 05/05/2024 1:14 AM [employer] FSCM DEVELOPER - 05/05/2024 4:24 AM [facility] Emergency [facility] [place] [address] Beau Cox MD,PHD Indigestion Discharge Disposition: Home or Self Care (Routine Discharge) 05/05/2024 Travel from Last 3 Months Immunizations Name Administration Dates Next Due DTaP (Daptacel) 03/15/2004,11/26/1999 Dtap (Acel-Immune) 02/02/1999,1998 Dtp (Generic) 1998 HPV4 (Gardasil) 09/04/2013,05/07/2013,02/20/2013 Hepatitis A (Havrix 1440 El.U) 09/21/2016 Hepatitis A (Havrix 720 El.U) 02/20/2013 Hepatitis B Pediatric 02/02/1999,1998,06/20 Hib (Generic) 02/02/1999,1998,1998 Hib (Omni-Hib) 11/26/1999 MMR (MMRII) 03/15/2004,07/14/1999 Meningococcal (Menactra) 04/04/2016,02/20/2013 Polio IPV (Ipol) 03/15/2004,11/26/1999, 9,1998 Tdap (Generic) 12/15/2019,02/20/2013 Varicella (Varivax) 02/20/2013,07/14/1999 Family History Medical History Relation Comments Asthma Father Heart Disease Father Hyperlipidemia Father Asthma Mother Relation Status Comments Father Mother Social History Tobacco Use Types Packs/Day Years Used Date Smoking Tobacco: Never Smokeless Tobacco: Never Tobacco Cessation:Counseling Given: No Alcohol Use Standard Drinks/Week Comments Yes 0 [...] on file Sexual Orientation Not on file Last Filed Vital Signs Vital Sign Reading Time Taken Comments Blood Pressure 106/57 05/13/2024 1:13 AM [employer]SCM DEVELOPER Pulse 77 05/13/2024 1:13 AM [employer]SCM DEVELOPER Temperature 36.8 C (98.2 F) 05/12/2024 11:08 PM [employer] FSCM DEVELOPER Respiratory Rate 16 05/13/2024 1:13 AM [employer] FSCM DEVELOPER Oxygen Saturation 98% 05/13/2024 1:13 AM [employer] FSCM DEVELOPER Inhaled Oxygen Concentration - - Weight 95.3 kg (210 lb) 05/12/2024 10:32 PM [employer] FSCM DEVELOPER Height 175.3 cm (5' 9 ) 05/12/2024 10:32 PM [employer] FSCM DEVELOPER Body Mass Index 31.01 05/12/2024 10:32 PM [employer] FSCM DEVELOPER Plan of Treatment Health Maintenance Due Date Last Done Comments Annual Physical 2001 Hepatitis C 2016 Cervical Cancer Screening Pap Smear (Age 21 to 29) Every 3 Years 06/01/2019 06/01/2016 Cervical Cancer Screening 06/01/2019 COVID-19 Vaccine ( season) 2024 Influenza Adult (#1) 2024 PHQ-2 (Physician [place]) 06/19/2024 DTaP, Tdap and Td Vaccines (8 - Td or Tdap) 12/14/2029 12/15/2019, 02/20/2013, 03/15/2004, Additional history exists Hepatitis B Vaccines Completed 02/02/1999, 1998, 1998 HPV Vaccines Completed 09/04/2013, 04/19, 02/20/2013 Meningococcal Vaccine Completed 04/04/2016, 013 Chlamydia Screening Females ages 16-24 Discontinued 06/01/2016 Meningococcal B Vaccine Aged Out No l onger eligible based on patient's age to complete this topic Pneumococcal Vaccine: Pediatrics (0 to 5 Years) and At-Risk Patients (6 to 64 Years) Aged Out No longer eligible based on patient's age to complete this topic RSV Immunizations Under 20 Months Aged Out No longer eligible based on patient's age to complete this topic Procedures Procedure Name Priority Date/Time Associated Diagnosis Comments INFLUENZA A & B STAT 05/13/2024 12:04 AM [employer] FSCM DEVELOPER CORONAVIRUS (COVID 19) STAT 12:04 AM [employer] FSCM DEVELOPER URINE BACTERIA CULTURE Routine 4 11:00 PM [employer] FSCM DEVELOPER HC URINALYSIS AUTO W/O MICRO STAT 05/12/2024 11:00 PM [employer] FSCM DEVELOPER LACTIC ACID W REFLEX (SEPSIS) STAT 05/12/2024 11:00 PM [employer] FSCM DEVELOPER COMPREHENSIVE METABOLIC PANEL STAT 05/12/2024 11:00 PM [employer] FSCM DEVELOPER CBC W/DIFF AUTOMATED STAT 05/12/2024 11:00 PM [employer] FSCM DEVELOPER POCT URINE (BACK OFFICE) STAT 05/12/2024 10:57 PM [employer] FSCM DEVELOPER TROPONIN, QUANT STAT 05/05/2024 3:33 AM [employer] FSCM DEVELOPER XR CHEST PORTABLE STAT 05/05/2024 2:0 7 AM [employer] FSCM DEVELOPER ECG 12-LEAD Routine 05/05/2024 1:59 AM [employer] FSCM DEVELOPER D-DIMER, QUANTITATIVE STAT 05/05/2024 1:25 AM [employer] FSCM DEVELOPER CHORIONIC GONADOTROPIN HCG QL STAT 05/05/2024 1:25 AM [employer] FSCM DEVELOPER C-REACTIVE PROTEIN STAT 05/05/2024 1: 25 AM [employer] FSCM DEVELOPER TROPONIN, QUANT STAT 05/05/2024 1:25 AM [employer] FSCM DEVELOPER COMPREHENSIVE METABOLIC PANEL STAT 05/05/2024 1:25 AM [employer] FSCM DEVELOPER CBC W/DIFF AUTOMATED STAT 05/05/2024 1:25 AM [employer] FSCM DEVELOPER from Last 3 Months Results * CORONAVIRUS (COVID 19) (05/13/2024 12:04 AM [employer] FSCM DEVELOPER) CORONAVIRUS SARS COV 2 RNA NEGATIVE NEGATIVE 05/13/2024 12:35 AM [employer] FSCM DEVELOPER [facility] Comment: NEGATIVE RESULTS DO NOT RULE OUT COVID 19 AND SHOULD NOT BE USED THE SOLE BASIS FOR TREATMENT OR PATIENT MANAGEMENT DECISIONS, INCLUDING INFECTION CONTROL DECISIONS. NEGATIVE RESULTS SHOULD BE CONSIDERED IN THE CONTEXT OF A PATIENT'S RECENT EXPOSURES, HISTORY AND THE PRESENCE OF CLINICAL SIGNS AND SYMPTOMS CONSISTENT WITH COVID 19. THE ID NOW COVID-19 2.0 TEST HAS BEEN AUTHORIZED BY THE FDA UNDER EAU FOR USE BY AUTHORIZED LABORATORIES. PERFORMED BY NUCLEIC ACID AMPLIFICATION FOR MOLECULAR QUALITATIVE DETECTION OF SARS-COV-2. SPECIMEN TYPE NASAL 05/13/2024 12:18 AM [employer]FT FSCM DEVELOPER [facility] NASAL STRUCTURE / Unknown 05/13/2024 12:04 AM [employer] FSCM DEVELOPER Janet FENG MICROBIOLOGY - GENERAL ORDERAB LES Final Result Performing Organization Address City/[facility]/ZIP Co de Phone Number [facility] [address] [place] [address], [place] [phone] * INFLUENZA A & B (05/13/2024 12:04 AM [employer] FSCM DEVELOPER) SPECIMEN TYPE NASOPHARYNGEAL SWAB 05/13/2024 12:19 AM [employer] FSCM DEVELOPER [facility] INFLUENZA A NEGATIVE NEGATIVE 05/13/2024 12:41 AM [employer]FT FSCM DEVELOPER [facility] INFLUENZA B NEGATIVE NEGATIVE 05/13/2024 12:41 AM [employer]OP[employer]OFT FSCM DEVELOPER [facility] Comment: Interpretation: Negative for Influenza A and B. A negative result does not exclude influenza virus infection. If influenza is circulating in your community, a diagnosis of influenza should be considered based on a patient's clinical presentation and empiric antiviral treatment should be considered, if indicated. If more conclusive testing is needed for hospitalized inpatients, follow-up confirmatory testing with RT-PCR requires a separate order. NASAL STRUCTURE / Unknown 05/13/2024 12:04 AM [employer] FSCM DEVELOPER Janet FENG MICROBIOLOGY - GENERAL ORDERAB LES Final Result [facility] [address] [place], [place] [address], [place] [address], [place] [phone] * LACTIC ACID W REFLEX (SEPSIS) (05/12/2024 11:00 PM [employer] FSCM DEVELOPER) LACTIC ACID VENOUS 0.9 0.4 - 2.0 MMOL/L 05/12/2024 11:34 PM [employer] FSCM DEVELOPER [facility] 05/12/2024 11:0 0 PM [employer] FSCM DEVELOPER us Janet FENG LABORATORY Final Result [facility] [address] [place] [address], [place] [phone] * (ABNORMAL) URINALYSIS (05/12/2024 11:00 PM [employer] FSCM DEVELOPER) Pathologist [facility] SPECIMEN TYPE URINE CLEAN CATCH 05/12/2024 10:57 PM [employer]OFT FSCM DEVELOPER [facility] COLOR (U) COLORLESS 05/12/2024 11:14 PM [employer]FT FSCM DEVELOPER [facility] TRANSPARENCY CLEAR 05/12/2024 11:14 PM [facility] SPECIFIC GRAVITY (U) 1.007 1.001 - 1.030 05/12/2024 11:14 PM [employer]OFT FSCM DEVELOPER [facility] U PH 7.0 5.0 - 9.0 05/12/2024 11:14 PM [facility] LEUKOCYTES (U) 75(A) NEGATIVE 05/12/2024 11:14 PM [facility] NITRITES NEGATIVE NEGATIVE 05/12/2024 11:14 PM [facility] PROTEIN RANDOM (U) NEGATIVE <30 MG/DL 05/12/2024 11:14 PM [facility] GLUCOSE (U) NORMAL NORMAL MG/DL 05/12/2024 11:14 PM [facility] KETONES MG/DL (U) NEGATIVE NEGATIVE MG/DL 05/12/2024 11:14 PM [facility] UROBILINOGEN NORMAL NORMAL MG/DL 05/12/2024 11:14 PM [facility] BILIRUBIN (U) NEGATIVE NEGATIVE MG/DL 05/12/2024 11:14 PM [facility] BLOOD (U) NEGATIVE NEGATIVE 05/12/2024 11:14 PM [facility] WBC/HPF 2 <6 /HPF 05/12/2024 11:14 PM [facility] RBC/HPF 1 <6 /HPF 05/12/2024 11:14 PM [facility] BACTERIA (U) RARE(A) NONE /HPF 05/12/2024 11:14 PM [facility] SQUAMOUS EPITHELIALS RARE /HPF 05/12/2024 11:14 PM [facility] URINE SPECIMEN OBTAINED BY CLEAN CATCH PROCEDURE / Unknown 05/12/2024 11:00 PM [employer] FSCM DEVELOPER Janet FENG URINE ORDERABLES Final Result [facility] [address] [place] [address], * CULTURE URINE (05/12/2024 11:00 PM [employer]FT FSCM DEVELOPER) SPEC DESCRIPTION URINE CLEAN CATCH 05/12/2024 11:36 PM [employer]OFT FSCM DEVELOPER [facility] SPECIAL REQUESTS NO SPECIAL REQUEST 05/12/2024 11:36 PM [facility] CULTURE RESULT POLYMICROBIAL GROWTH CONSISTENT WITH NORMAL GENITAL FOSTER. SUSCEPTIBILITIES NOT ROUTINELY PERFORMED. 05/14/2024 8:26 AM [employer]OPLESOFT FSCM DEVELOPER [facility] URINE SPECIMEN OBTAINED BY CLEAN CATCH PROCEDURE / Unknown 05/12/2024 11:00 PM [employer] FSCM DEVELOPER 05/13/2024 12:11 AM [employer] FSCM DEVELOPER us Janet FENG MICROBIOLOGY - GENERAL ORDERAB LES Final Result [facility] [address] [place] [address], * (ABNORMAL) COMPREHENSIVE METABOLIC PANEL (05/12/2024 11:00 PM [employer] FSCM DEVELOPER) Only the most recent of2 resultswithin the time period is included. GLUCOSE 107(H) 70 - 99 MG/DL 05/12/2024 11:33 PM [employer]FT FSCM DEVELOPER [facility] BUN 10 7 - 18 MG/DL 05/12/2024 11:33 PM [employer]OFT FSCM DEVELOPER [facility] CREATININE S/P/B 0.66 0.55 - 1.02 MG/DL 05/12/2024 11:33 PM [employer] FSCM DEVELOPER [facility] SODIUM S/P/B 138 136 - 145 MMOL/L 05/12/2024 11:33 PM [facility] POTASSIUM S/P/B 3.5 3.5 - 5.1 MMOL/L 05/12/2024 11:33 PM [employer] FSCM DEVELOPER [facility] CHLORIDE S/P/B 108 97 - 115 MMOL/L 05/12/2024 11:33 PM [employer]FT FSCM DEVELOPER [facility] CO2 22.7 21 - 32 MMOL/L 05/12/2024 11:33 PM [employer]OFT FSCM DEVELOPER [facility] CALCIUM S/P/B 9.0 8.5 - 10.1 MG/DL 05/12/2024 11:33 PM [employer] FSCM DEVELOPER [facility] BILIRUBIN TOTAL S/P/B 0.5 0.2 - 1.2 MG/DL 05/12/2024 11:33 PM [employer]OFT FSCM DEVELOPER [facility] Comment: THIS ASSAY IS NOT RECOMMENDED FOR PATIENTS UNDERGOING TREATMENT WITH ELTROMBOPAG DUE TO THE POTENTIAL FOR FALSELY ELEVATED RESULTS. TOTAL PROTEIN S/P/B 7.5 6.4 - 8.2 G/DL 05/12/2024 11:33 PM [facility] ALBUMIN S/P/B 3.4 3.4 - 5.0 G/DL 05/12/2024 11:33 PM [facility] AST 9(L) 15 - 37 U/L 05/12/2024 11:33 PM [facility] ALT 18 14 - 55 U/L 05/12/2024 11:33 PM [facility] ALKALINE PHOSPHATASE S/P/B 96 50 - 136 U/L 05/12/2024 11:33 PM [facility] ANION GAP 7.3 2 - 10 MMOL/L 05/12/2024 11:33 PM [facility] BUN CREATININE RATIO 15.2 6 - 26 05/12/2024 11:33 PM [facility] A/G RATIO 0.8(L) 1.0 - 2.0 RATIO 05/12/2024 11:33 PM [facility] GFR ESTIMATE >90 >90 ML/MIN/1.7 3 M2 05/12/2024 11:33 PM [facility] Comment: NOTE: eGFR is not calculated for patients <18 years of age or gender unknown. This is an estimated GFR calculation using the new CKD EPI creatinine equation without race and so does not require a correction factor for race. This estimated GFR should not be used for calculating drug doses. 05/12/2024 11:0 0 PM [employer] FSCM DEVELOPER us Janet FENG LABORATORY Final Result [facility] [address] [place] [address], [place] [phone] * (ABNORMAL) CBC W/DIFF AUTOMATED (05/12/2024 11:00 PM [employer] FSCM DEVELOPER) Only the most recent of2 resultswithin the time period is included. WBC 11.76(H) 4.5 - 11.0 x10'3/uL 05/12/2024 11:09 PM [facility] RBC 4.92 4.20 - 5.40 x10'6/uL 05/12/2024 11:09 PM [facility] HGB 13.5 12.0 - 16.0 G/DL 05/12/2024 11:09 PM [facility] HCT 39.9 38.0 - 48.0 % 05/12/2024 11:09 PM [facility] MCV 81.1 81.0 - 99.0 FL 05/12/2024 11:09 PM [facility] MCH 27.4 27.0 - 31.0 PG 05/12/2024 11:09 PM [facility] MCHC 33.8 32.0 - 36.0 G/DL 05/12/2024 11:09 PM [facility] RDW 12.9 11.5 - 14.5 % 05/12/2024 11:09 PM [facility] PLT 270 130 - 400 x10'3/uL 05/12/2024 11:09 PM [facility] MPV 10.5 9.3 - 12.2 FL 05/12/2024 11:09 PM [facility] DIFFERENTIAL TYPE AUTOMATED DIFFERENTIAL 05/12/2024 11:09 PM [facility] NEUTROPHILS % 75.2 % 05/12/2024 11:09 PM [facility] LYMPHOCYTES % 13.9 % 05/12/2024 11:09 PM [employer]OFT FSCM DEVELOPER [facility] MONOCYTES % 8.2 % 05/12/2024 11:09 PM [employer]OFT FSCM DEVELOPER [facility] EOSINOPHILS 2.0 % 05/12/2024 11:09 PM [employer]OFT FSCM DEVELOPER [facility] BASOPHILS 0.4 % 05/12/2024 11:09 PM [employer]OFT FSCM DEVELOPER [facility] IMMATURE GRANS % 0.3 % 05/12/20 11:09 PM [employer]FT FSCM DEVELOPER [facility] ABS. NEUTROPHILS 8.85(H) 1.80 - 7.70 x10'3/uL 05/12/2024 11:09 PM [employer]OFT FSCM DEVELOPER [facility] ABS. LYMPHOCYTES 1.64 1.00 - 4.80 x10'3/uL 05/12/2024 11:09 PM [employer]FT FSCM DEVELOPER [facility] ABS. MONOCYTES 0.96(H) 0.24 - 0.86 x10'3/uL 05/12/2024 11:09 PM [employer]FT FSCM DEVELOPER [facility] ABS. EOSINOPHILS 0.23 0.04 - 0.36 x10'3/uL 05/12/2024 11:09 PM [employer]FT FSCM DEVELOPER [facility] ABS. BASOPHILS 0.05 0.01 - 0.08 x10'3/uL 05/12/2024 11:09 PM [employer]OFT FSCM DEVELOPER [facility] ABS. IMMATURE GRANULOCYTES 0.03 0.00 - 0.49 x10'3/uL 05/12/2024 11:09 PM [employer]FT FSCM DEVELOPER [facility] 05/12/2024 11:0 0 PM [employer] FSCM DEVELOPER Janet FENG LABORATORY Final Result [facility] [address] [place] [address], * POCT urine (05/12/2024 10:57 PM [employer] FSCM DEVELOPER) URINE HCG TEST NEGATIVE Internal Control: VALID Janet FENG POINT OF CARE TEST ORDERABLES Final Result * TROPONIN, QUANT (05/05/2024 3:33 AM [employer] FSCM DEVELOPER) Only the most recent of2 resultswithin the time period is included. TROPONIN I HIGH SENSITIVITY 3 <54 ng/L 05/05/2024 4:02 AM [employer]FT FSCM DEVELOPER [facility] Comment: HIGH DOSES OF BIOTIN, TROPONIN-SPECIFIC AUTOANTIBODIES, AND ANTIBODY THERAPY CONTAINING HAMA MAY INTERFERE WITH THIS TEST RESULT. CORRELATION TO CLINICAL HISTORY AND PRESENTATION RECOMMENDED. 05/05/2024 3:33 AM [employer] FSCM DEVELOPER Beau Cox MD,PHD LABORATORY Final Resu lt [facility] [address] [place] [address], [place] [phone] * XR CHEST PORTABLE (05/05/2024 2:07 AM [employer] FSCM DEVELOPER) Anatomical Region Laterality Modality Chest Radiographic Chantale ging 05/05/2024 2:11 AM [employer] FSCM DEVELOPER Impressions 05/05/2024 2:11 AM [employer] FSCM DEVELOPER IMPRESSION: No definite acute radiographic abnormalities identified in the chest. Referred By: Interpreted By: Jeffrey Chavez MD, 05/05/2024 2:11 AM Narrative 05/05/2024 2:11 AM [employer] FSCM DEVELOPER [facility] [address] [place], [place] [address] Examination: Chest radiograph Exam time: 05/05/2024 2:00 AM Clinical history: Chest pain Comparison: None Technique: One view of the chest obtained. Findings: Normal heart size and pulmonary vascularity. No consolidation, pleural effusions, or definite pneumothorax. Osseous structures reveal no definite acute findings. Procedure Note Jeffrey Chavez MD - 05/05/[address] [address] Examination: Chest radiograph Exam time: 05/05/2024 2:00 AM Clinical history: Chest pain Comparison: None Technique: One view of the chest obtained. Findings: Normal heart size and pulmonary vascularity. No consolidation,pleural effusions, or definite pneumothorax. Osseous structures reveal nodefinite acute findings. IMPRESSION: No definite acute radiographic abnormalities identified in the chest. Referred By: Interpreted By: Jeffrey Chavez MD, 05/05/2024 2:11 AM Janet Otero SC GENERAL IMAGING Final Result * ECG 12 lead (05/05/2024 1:59 AM [employer] FSCM DEVELOPER) 05/05/2024 1:59 AM [employer]FT FSCM DEVELOPER Narrative [facility] - 05/05/2024 4:56 PM [employer]OFT FSCM DEVELOPER [address] Test Date: 2024-05-05 Pat Name: CLEMENTINA BARNARDJIMBO Department: 41 Room: Gender: Female Surveillance Operator: [id number] : 2000 Requested By: JANET OTERO Order Number: [id number] Reading MD: Carito Locke Measurements Intervals [place] Rate: 73 P: 48 NC: 182 QRS: 61 QRSD: 87 T: 49 QT: 389 QTc: 430 Interpretive Statements SINUS RHYTHM Compared to ECG 05/11/2014 21:06:34 Sinus tachycardia no longer present [employer] FSCM DEVELOPER Procedure Note Carito Locke MD - 05/05/[address] Test Date: 2024-05-05 Pat Name: CLEMENTINA CAMACHO Department: 41 Room: Gender: Female Surveillance Operator: [id number] : 2000 Requested By: JANET OTERO Order Number: [id number] Reading MD: Carito Locke Measurements Intervals [place] Rate: 73 P: 48 NC: 182 QRS: 61 QRSD: 87 T: 49 QT: 389 QTc: 430 Interpretive Statements SINUS RHYTHM Compared to ECG 05/11/2014 21:06:34 Sinus tachycardia no longer present [employer] FSCM DEVELOPER us Janet Otero PA ECG ORDERABLES Final Result Performing Organization Address City/[facility] Co de Phone Number [facility] * D-DIMER, QUANTITATIVE (05/05/2024 1:25 AM [employer] FSCM DEVELOPER) Pathologist [facility] D-DIMER 418 0 - 500 ng{FEU}/mL 05/05/2024 1:52 AM [employer]OP[employer]OFT FSCM DEVELOPER [facility] Comment: D-Dimer values less than or equal to 500 ng/mL FEU have a negative predictive value of >95% for exclusion of deep vein thrombosis and pulmonary embolism. In patients over 50 (who tend to have higher normal baseline D-Dimer values), recent studies suggest age-adjusted D-Dimer cutoff values (calculated as: age [years] x 10 ng/mL) result in equivalent outcomes and no additional false negative findings. 05/05/2024 1:25 AM [employer] FSCM DEVELOPER us Beau Cox MD,PHD LABORATORY Final Resu lt [facility] [address] [place] [address], [place] [phone] * Qualitative HCG (05/05/2024 1:25 AM [employer]OP[employer]OFT FSCM DEVELOPER) PREG SCREEN-SERUM NEGATIVE 05/05/2024 1:51 AM [employer]OFT FSCM DEVELOPER [facility] 05/05/2024 1:25 AM [employer] FSCM DEVELOPER Janet FENG LABORATORY Final Result [facility] [address] [place] [address], [place] [phone] * (ABNORMAL) C-REACTIVE PROTEIN (05/05/2024 1:25 AM [employer]OP[employer]OFT FSCM DEVELOPER) [facility] C-REACTIVE PROTEIN 1.00(H) <0.29 mg/dL 05/05/2024 2:03 AM [employer]OFT FSCM DEVELOPER [facility] 05/05/2024 1:25 AM [employer] FSCM DEVELOPER Janet FENG LABORATORY Final Result Performing Organization Address City/[facility]/ZIP Co de Phone Number [address] [address], [place] [phone] from Last 3 Months Insurance [employer] Advance Directives Documents on File Type Date Recorded Patient Powder Blender Expl anation Legal Documents 07/20/2022 4:58 PM PB IB [employer] Care Teams Pilot Plant Operator Helper Relationship Specialty Start Date End Date Macrie Pollard, CURING PRESS OPERATOR [address] [place] [address] PCP - General Nurse Practitioner Family 04/26/21
--- OUTSIDE RECORDS SUMMARY | 2024-08-03 12:45 | XMS_ITS | Clinical Summary ---
Author Organization [facility] Address [address] [place] [address] Phone Care Team Providers Care Coal Mill Operator Name Role Phone Unavailable Primary Care Provider Unavailabl e Social History Tobacco Use Types Packs/Day Years Used Date Smoking Tobacco: Never Assessed Comments Unknown Sex and Gender Information Value Date Recorded Sex Assigned at Not on file Legal Sex Female 10:21 AM CDT Gender Identity Not on file Sexual Orientation Not on file Plan of Treatment Health Maintenance Due Date Last Done Comments Hepatitis C Virus (HCV) Screening 2000 Pap Smear 2019 Influenza Immunization (#1) 2024 SARS-COV-2 Immunization ( season) 2024 Respiratory Syncytial Virus (RSV) Immunization (Adult) (1 - 1-dose 75+ series) 2073 Hepatitis B Immunization Completed 999, 2000, 2000 Human Papillomavirus (HPV) Immunization Completed 09/04/2013, 05/07/2013, 02/20/2013 Meningococcal Immunization (ACWY) Completed 04/04/2016, 02/20/2013 DTaP/Tdap/Td Immunization Discontinued 2019, 02/20/2013, 03/15/2004, Additional history exists TdaP Immunization Completed 12/15/2019, 02/20/2013 Pneumococcal Immunization Combined Aged Out No longer eligible based on patient's age to complete this topic Rotavirus Immunization Aged Out No lo nger eligible based on patient's age to complete this topic
--- OUTSIDE RECORDS SUMMARY | 2024-08-03 12:45 | XMS_ITS | Clinical Summary ---
Author Organization [facility] Address [address] [place] [address] Care Team Providers Care Yeast Washer Name Role Phone Marcie Pollard NP Primary Care Provider [phone] Allergies Active Allergy Reactions Criticality Noted Date Comments Erythromycin Rash Medium 03/31/2020 Rash Medications fluticasone propionate (FLONASE) 50 mcg/actuation nasal spray Administer 2 sprays into each nostril daily as needed for allergies Active ibuprofen (ADVIL,MOTRIN) 600 mg tablet Take 1 tablet (600 mg total) by mouth every 8 (eight) hours as needed 3 Active Active Problems Problem Noted Date Diagnosed Date Palpitations 09/19/2023 Chest pain, precordial 09/19/2023 Nicotine dependence with nicotine-induced disord er 09/19/2023 Family history of ASCVD (art eriosclerotic cardiovascular disease) 09/19/2023 Hypercalciuria 06/06/2016 Recurrent UTI 06/06/2016 Sexually active at young age 1206/06/2016 Voiding dysfunction 06/06/2016 Anxiety disorder 09/15/2015 Medical History Medical History Date Comments Chest pain Palpitations Social History Tobacco Use Types Packs/Day Years Used Date Smoking Tobacco: Never Tobacco Cessation:Counseling Given: Not Answered Personal Safety Answer Date Recorded Have you ever been in or are you currently in a harmful physical or emotional relationship or is someone making you feel afraid or unsafe? Denies 07/28/2023 Comments No Sex and Gender Information Value Date Recorded Sex Assigned at Not on file Legal Sex Female 11:05 PM REGISTERED ACCOUNT ADMINISTRATOR Gender Identity Not on file Sexual Orientation Not on file Obstetrics History Para Term AB IAB SAB Ectopic Multiple Livin g Live Births 1 1 Date Outcome GA Total Labor Labor/2nd/3rd Weight Sex Type Anes PTL Merline A1 A5 Name Clin Para Last Filed Vital Signs Vital Sign Reading Time Taken Comments Blood Pressure 102/62 02/16/2024 9:25 AM CDT Pulse 102 02/16/2024 9:25 AM CDT Temperature 36.2 C (97.2 F) 07/28/2023 10:38 AM REGISTERED ACCOUNT ADMINISTRATOR Respiratory Rate 13 07/28/2023 2:40 PM REGISTERED ACCOUNT ADMINISTRATOR Oxygen Saturation 96% 02/16/2024 9:25 AM CDT Inhaled Oxygen Concentration - - Weight 94.8 kg (209 lb) 02/16/2024 9:25 AM CDT Height 172.7 cm (5' 8 ) 02/16/2024 9:25 AM CDT Body Mass Index 31.78 02/16/2024 9:25 AM CDT Plan of Treatment Upcoming Encounters Date Type Department Care Team (Late st Contact Info) Description 08/05/2024 10:15 AM REGISTERED ACCOUNT ADMINISTRATOR Hospital Encounter [facility] [address] [place] [address] Yuriy Mark MD [address] [address] Health Maintenance Due Date Last Done Comments Cervical Cancer Screening 1998 Depression Screening 1998 Hepatitis C Screening 1998 Regular Well Visit/Exam 18-64 2016 Influenza Vaccine (#1) 2024 DTaP/Tdap/Td Vaccine (8 - Td or Tdap) 12/14/2029 12/15/2019, 02/20/2013, 03/15/2004, Additional history exists Hepatitis B Screening Completed 02/02/1999 , 1998, 1998 Varicella Vaccines Completed 02/20/2013, 07/14/1999 HPV Vaccines Completed 09/04/2013, 04/19, 02/20/2013 Pneumococcal vaccine <65 Aged Out No longer eligible based on patient's age to complete this topic Insurance [employer] SIG [id number] [facility] [id number] [place] [facility] Care 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
--- OUTSIDE RECORDS SUMMARY | 2024-08-03 12:45 | XMS_ITS | Clinical Summary ---
Author Organization [facility] Address [address] [place] [address] Care Team Providers Care Field Marketing Associate Name Role Phone Jordon Chiang MD Unavailable Source Comments [facility],non-owned Affiliates and Associated Physician Practices is amultiple site organization consisting of ambulatory clinics and hospital sitesin [place], [place], [place] and [place]. This disclosure is being madepursuant to the Care Everywhere program and may not contain all information available regarding this patient. Last updated 18.[facility] Allergies No known active allergies Medications * Be aware that medications may not be up to date on this document. Alwaysverify current medications with the patient. Medication Sig Dispensed Refills Start Date End Date Status ibuprofen (MOTRIN) 600 MG tablet Take 1 Tab by mouth every 8 hours as needed for Pain. 30 Tab 0 05/06/2013 Active albuterol HFA (PROVENTIL;VENTOLIN;P ROAIR) 108 (90 BASE) MCG/ACT inhaler Inhale 2 Puffs by mouth every 6 hours as needed. Active polyethylene glycol 3350 (MIRALAX) packet Take 17 g by mouth once daily 30 Packet 0 12/07/2015 Active Lactobacillus-Inulin ([facility] [employer] [facility]) capsuleIndications:Re current UTI Take 1 Cap by mouth once daily 30 Cap 5 06/01/2016 Active Active Problems Problem Noted Date Diagnosed Date Sexually active at young age 1206/06/2016 Recurrent UTI 06/06/2016 Voiding dysfunction 06/06/2016 Hypercalciuria 06/06/2016 Immunizations Name Administration Dates Next Due HEP A VACCINE, ADULT 09/21/2016 TDAP (7yrs+) 12/15/2019 Family History Medical History Relation Name Comments Congenital Heart defect Brother minna nary artery disease ? NE<65(female) Maternal Grandmother Sudd. <30 Maternal Uncle Anxiety Disorder Mother Bipolar Disorder Mother NE<65(female) Paternal Grandmother Congenital Heart defect Sister vsd Arrhythmia Neg Hx CVA<55(male) Neg Hx CVA<65(female) Neg Hx Cardiomyopathy Neg Hx Heart Surgery Neg Hx Long QT Syndrome Neg Hx NE<55(male) Neg Hx Marfan Syndrome Neg Hx Pacemaker Neg Hx Relation Name Status Comments Brother Maternal Grandmother Maternal Uncle Mother Paternal Grandmother Sister Social History Tobacco Use Types Packs/Day Years Used Date Smoking Tobacco: Passive Smo ke Exposure - Never Smoker Alcohol Use Standard Drinks/Week Comments No 0 (1 standard drink = 0.6 oz pur e alcohol) Sex and Gender Information Value Date Recorded Sex Assigned at Not on file Gender Identity Not on file Sexual Orientation Not on file Last Filed Vital Signs Vital Sign Reading Time Taken Comments Blood Pressure 108/68 07/20/2016 2:15 PM POOL HAND Pulse 72 04/11/2016 1:00 PM CDT Temperature 37.2 C (99 F) 12/23/2015 2:48 PM CDT Respiratory Rate 18 04/11/2016 1:00 PM CDT Oxygen Saturation 98% 12/23/2015 2:48 PM CDT RA Inhaled Oxygen Concentration - - Weight 65.4 kg (144 lb 2.9 oz) 07/20/2016 2:15 P M POOL HAND Height 172 cm (5' 7.72 ) 07/20/2016 2:15 PM POOL HAND Body Mass Index 22.11 07/20/2016 2:15 PM POOL HAND Plan of Treatment Health Maintenance Due Date Last Done Comments PAP SMEAR 1998 HPV VACCINE (1 - 3-dose series) 2013 HEPATITIS C SCREENING 07/08/2016 HEPATITIS A VACCINE (2 of 2 - Risk 2-dose series) 03/23/2017 09/21/2016 CHLAMYDIA/GONORRHEA SCREENING 06/01/2017 06/01/2016 HEPATITIS B VACCINE (1 of 3 - 19+ 3-dose series) 2017 COVID-19 VACCINE ( - 2023-2 5 season) 2024 INFLUENZA VACCINE (#1) 2024 DEPRESSION SCREENING 06/19/2024 DTAP/TDAP/TD VACCINES (2 - T d or Tdap) 12/14/2029 12/15/2019 ZOSTER VACCINE (1 of 2) 2048 HIV SCREENING Completed 06/01/2016 HIB VACCINE Aged Out No longer eligi ble based on patient's age to complete this topic MENINGOCOCCAL (Group B) VACCINE Aged Out No longer eligible based on patient's age to complete this topic MENINGOCOCCAL VACCINE Aged Out No tim keira eligible based on patient's age to complete this topic PNEUMOCOCCAL VACCINE Aged Out No long er eligible based on patient's age to complete this topic Procedures Procedure Name Priority Date/Time Associated Diagnosis Comments HIV-1 HIV-2 ANTIBODY + HIV P24 AG PANEL Routine 06/01/2016 3:44 PM POOL HAND Sexually active at young age CHLAMYDIA + GC AMPLIFIED PROBE Routine 06/01/2016 3:33 PM POOL HAND Sexually active at young age from Last 3 Months or Most Recently Relevant to Health Maintenance Results * HIV-1 HIV-2 ANTIBODY + HIV P24 AG PANEL (06/01/2016 3:44 PM POOL HAND) Pathologist [facility] HIV1/2 Ab + P24 Ag Non Reactive Non Reactive 06/01/2016 5:21 PM POOL HAND [facility] Blood BLOOD SPECIMEN / Unknown Lab Venipuncture / Unknown 06/01/2016 3:44 PM POOL HAND 06/01/2016 4:06 PM POOL HAND Narrative [facility] - 06/01/2016 5:21 PM POOL HAND No Laboratory evidence of HIV infection. Kristen Monroy APRN-OIL PIPE INSPECTOR LAB - CHEMISTR Y ORDERABLES Performing Organization Address City/State/[facility] Co de Phone Number [facility] [address] [place] [phone] * CHLAMYDIA + GC AMPLIFIED PROBE (06/01/2016 3:33 PM POOL HAND) Chlamydia Amplified Probe Negative Negative 06/02/2016 9:33 AM POOL HAND [facility] GC Amplified Probe Negative Negative 06/02/2016 9:33 AM [facility] Urine URINE / Unknown 06/01/2016 3 :33 PM POOL HAND 06/01/2016 3:50 PM POOL HAND Narrative [facility] - 06/02/2016 9:33 AM POOL HAND This test was developed and its performance characteristics determined by the [facility], [facility]. Female urine specimens tested by the [facility] have not been cleared or approved by the U.S. Food and Drug Administration (FDA). The laboratory is regulated under the Clinical Laboratory Improvement Amendments (CLIA) as qualified to perform high-complexity testing. This test is used for clinical purposes. It should not be regarded as investigational or for research. Results based on detection/no detection of ribosomal RNA by amplified method. Kristen Monroy ARMORED CAR DRIVER-OIL PIPE INSPECTOR LAB - MICROBIO LOGY ORDERABLES [facility] [address] [place] [address], [facility] [phone] from Last 3 Months or Most Recently Relevant to Health Maintenance Care Teams Field Marketing Associate Relationship Specialty Start Date End Date Jordon Chiang MD Resident Student Resident 01/21/16
--- OUTSIDE RECORDS SUMMARY | 2024-08-03 12:45 | XMS_ITS | Patient Health Summary ---
Author Organization [facility] Address [address] [place] [address] Care Team Providers Care Upholstery Covers Inspector Name Role Phone Jordon Chiang MD Unavailable Note from [facility],non-owned Affiliates and Associated Physician Practices is amultiple site organization consisting of ambulatory clinics and hospital sitesin [place], [place], [place] and [place]. This disclosure is being madepursuant to the Care Everywhere program and may not contain all information available regarding this patient. Last updated 18.[facility] Allergies No known active allergies* Augmentin(Urticaria) -Medium Criticality,Inactive * Doxycycline(Rash) -Medium Criticality,Inactive * Erythromycin(Urticaria) -Medium Criticality,Inactive * Azithromycin(Urticaria) -Medium Criticality,Inactive Medications * Be aware that medications may not be up to date on this document. Alwaysverify current medications with the patient. * ibuprofen (MOTRIN) 600 MG tablet(Started 05/06/2013) Take 1 Tab by mouth every 8 hours as needed for Pain. * albuterol HFA (PROVENTIL;VENTOLIN;PROAIR) 108 (90 BASE) MCG/ACT inhaler Inhale 2 Puffs by mouth every 6 hours as needed. * polyethylene glycol 3350 (MIRALAX) packet(Started 12/07/2015) Take 17 g by mouth once daily * Lactobacillus-Inulin ([facility]) capsule(Started 06/01/2016) Take 1 Cap by mouth once daily 5 refills remaining Active Problems Problem Noted Date Diagnosed Date Sexually active at young age 1206/06/2016 Recurrent UTI 06/06/2016 Voiding dysfunction 06/06/2016 Hypercalciuria 06/06/2016 Immunizations * HEP A VACCINE, ADULT(Given 09/21/2016) * TDAP (7yrs+)(Given 12/15/2019) Social History Tobacco Use Types Packs/Day Years [...] Comments Blood Pressure 108/68 07/20/2016 2:15 PM CARE MANAGEMENT COORDINATOR Pulse 72 04/11/2016 1:00 PM CDT Temperature 37.2 C (99 F) 12/23/2015 2:48 PM CDT Respiratory Rate 18 04/11/2016 1:00 PM CDT Oxygen Saturation 98% 12/23/2015 2:48 PM CDT RA Inhaled Oxygen Concentration - - Weight 65.4 kg (144 lb 2.9 oz) 07/20/2016 2:15 P M CARE MANAGEMENT COORDINATOR Height 172 cm (5' 7.72 ) 07/20/2016 2:15 PM CARE MANAGEMENT COORDINATOR Body Mass Index 22.11 07/20/2016 2:15 PM CARE MANAGEMENT COORDINATOR Procedures * URINE MICROSCOPIC ONLY(Performed 07/20/2016) Performed for Hypercalciuria * CALCIUM/CREAT RATIO URINE RANDOM PANEL(Performed 07/20/2016) Performed for Hypercalciuria * PROTEIN CREATININE RATIO URINE RANDOM PNL(Performed 07/20/2016) Performed for Hypercalciuria * URINALYSIS REFLEX TO MICROSCOPIC NO CULTURE(Performed 07/20/2016) Performed for Hypercalciuria * UROFLOWMETRY(Performed 06/03/2016) * US BLADDER RESIDUAL ACC(Performed 06/03/2016) Performed for Urinary tract infection, site unspecified * UROFLOWMETRY ACC(Performed 06/03/2016) Performed for Urinary tract infection, site unspecified * EMG ACC(Performed 06/03/2016) Performed for Urinary tract infection, site unspecified * RPR(Performed 06/01/2016) Performed for Sexually active at young age * HIV-1 HIV-2 ANTIBODY + HIV P24 AG PANEL(Performed 06/01/2016) Performed for Sexually active at young age * CALCIUM/CREAT RATIO URINE RANDOM PANEL(Performed 06/01/2016) Performed for Recurrent UTI * CHLAMYDIA + GC AMPLIFIED PROBE(Performed 06/01/2016) Performed for Sexually active at young age * URINE MICROSCOPIC ONLY REFLEX TO CULTURE(Performed 04/11/2016) Performed for Acute cystitis without hematuria * URINALYSIS REFLEX MICROSCOPIC REFLEX CULTURE(Performed 04/11/2016) Performed for Acute cystitis without hematuria * CULTURE URINE(Performed 04/11/2016) Performed for Acute cystitis without hematuria * HCG URINE QUALITATIVE - POCT (IP) BEAKER(Performed 12/23/2015) * CALPROTECTIN FECAL(Performed 12/09/2015) * CULTURE STOOL+ E COLI SHIGA-LIKE TOXIN(Performed 12/09/2015) * URINE MICROSCOPIC ONLY(Performed 12/07/2015) * URINALYSIS REFLEX TO MICROSCOPIC NO CULTURE(Performed 12/07/2015) * ERYTHROCYTE SEDIMENTATION RATE(Performed 12/07/2015) * C-REACTIVE PROTEIN(Performed 12/07/2015) * COMPREHENSIVE METABOLIC PANEL(Performed 12/07/2015) * CBC W AUTO DIFFERENTIAL(Performed 12/07/2015) * OCCULT BLOOD FECES(Performed 12/07/2015) * HCG URINE QUALITATIVE - POCT (IP) BEAKER(Performed 11/19/2015) * URINE MICROSCOPIC ONLY(Performed 11/19/2015) * URINALYSIS REFLEX TO MICROSCOPIC NO CULTURE(Performed 11/19/2015) * CULTURE URINE(Performed 11/19/2015) * OCCULT BLOOD FECES(Performed 11/19/2015) * URINALYSIS REFLEX TO MICROSCOPIC NO CULTURE(Performed 09/16/2015) Performed for Dysuria * CULTURE URINE(Performed 09/16/2015) Performed for Dysuria * HCG URINE QUALITATIVE - POCT (IP) BEAKER(Performed 08/30/2015) * CULTURE URINE(Performed 08/30/2015) * URINE MICROSCOPIC ONLY(Performed 08/30/2015) * URINALYSIS REFLEX TO MICROSCOPIC NO CULTURE(Performed 08/30/2015) * LAB RESULTS ORDER(Performed 07/23/2015) * US KIDNEYS W BLADDER(Performed 07/20/2015) Performed for History of recurrent UTIs * URINALYSIS REFLEX TO MICROSCOPIC NO CULTURE(Performed 07/16/2015) Performed for Urinary tract infection without hematuria, site unspecified * URINE MICROSCOPIC ONLY(Performed 06/25/2015) Performed for History of recurrent UTIs * CALCIUM/CREAT RATIO URINE RANDOM PANEL(Performed 06/25/2015) Performed for History of recurrent UTIs * URINALYSIS REFLEX TO MICROSCOPIC NO CULTURE(Performed 06/25/2015) Performed for History of recurrent UTIs * CULTURE URINE(Performed 06/25/2015) Performed for History of recurrent UTIs * CBC W AUTO DIFFERENTIAL(Performed 06/10/2015) * COMPREHENSIVE METABOLIC PANEL(Performed 06/10/2015) * HCG URINE QUALITATIVE - POCT (IP) BEAKER(Performed 06/10/2015) * URINE MICROSCOPIC ONLY REFLEX TO CULTURE(Performed 12/15/2014) Performed for Change of skin color * VITAMIN D 25-HYDROXY(Performed 12/15/2014) Performed for Change of skin color * TSH(Performed 12/15/2014) Performed for Change of skin color * SS-B (SJOGREN'S) ANTIBODY(Performed 12/15/2014) Performed for Change of skin color * VERNON BLOOD SCREEN W/REFLEX TITER(Performed 12/15/2014) Performed for Change of skin color * URINALYSIS REFLEX MICROSCOPIC REFLEX CULTURE(Performed 12/15/2014) Performed for Change of skin color * C-REACTIVE PROTEIN(Performed 12/15/2014) Performed for Change of skin color * ERYTHROCYTE SEDIMENTATION RATE(Performed 12/15/2014) Performed for Change of skin color * COMPREHENSIVE METABOLIC PANEL(Performed 12/15/2014) Performed for Change of skin color * CBC W AUTO DIFFERENTIAL(Performed 12/15/2014) Performed for Change of skin color * CULTURE URINE(Performed 12/15/2014) Performed for Change of skin color * CARDIAC HOLTER MONITOR ORDER(Performed 08/14/2014) * ECHO CONSULT - PEDIATRIC(Performed 07/24/2014) Performed for Chest pain * EKG 15-LEAD(Performed 05/11/2014) Performed for Palpitations * INSERTION OF PERIPHERAL IV(Performed 03/19/2014) * XR ELBOW RIGHT 2VW(Performed 05/06/2013) Performed for Injury, other and unspecified, elbow, forearm, and wrist Results * (ABNORMAL) URINALYSIS ROUTINE AUTO (07/20/2016 3:24 PM CARE MANAGEMENT COORDINATOR) Only the most recent of7 resultswithin the time period is included. Color UA Yellow Straw, Yellow, Dark Yellow 07/20/2016 4:03 PM CARE MANAGEMENT COORDINATOR [facility] Clarity UA Slt Cloudy 07/20/2016 4:03 PM CARE MANAGEMENT COORDINATOR [facility] Specific [place] UA 1.020 1.005 - 1.030 07/20/2016 4:03 PM [facility] pH UA 6.5 5.0 - 8.0 pH 07/20/2016 4:03 PM [facility] Protein UA Negative Negative 07/20/2016 4:03 PM [facility] Blood UA Negative Negative 07/20/2016 4:03 PM [facility] Leukocyte UA 1+(A) Negative 07/20/2016 4:03 PM [facility] Nitrite UA Negative Negative 07/20/2016 4:03 PM [facility] Glucose UA Negative Negative 07/20/2016 4:03 PM [facility] Ketone UA Negative Negative 07/20/2016 4:03 PM [facility] Bilirubin UA Negative Negative 07/20/2016 4:03 PM [facility] Urobilinogen UA 0.2 0.1 - 1.0 EU/dL 07/20/2016 4:03 PM [facility] Urine URINE SPECIMEN OBTAINED BY CLEAN CATCH PROCEDURE / Unknown 07/20/2016 3:24 PM CARE MANAGEMENT COORDINATOR 07/20/2016 3:[address] [facility] Val Colunga MD LAB - URINALYSIS ORD ERABLES Performing Organization Address City/State/[facility] Co de Phone Number [facility] [address] [place] [phone] * (ABNORMAL) URINALYSIS MICROSCOPIC ONLY (07/20/2016 3:24 PM CARE MANAGEMENT COORDINATOR) Only the most recent of5 resultswithin the time period is included. RBC UA 0-2 0-2, 2-5 # /hpf 07/20/2016 4:09 PM [facility] WBC UA 5-10(A) 0-2, 2-5 # /hpf 07/20/2016 4:09 PM [facility] Bacteria UA 3+(A) None Seen, Trace 07/20/2016 4:09 PM [facility] Epithelial Cell UA 5-10(A) 0-2, 2-5 # /hpf 07/20/2016 4:09 PM [facility] Urine URINE SPECIMEN OBTAINED BY CLEAN CATCH PROCEDURE / Unknown 07/20/2016 3:24 PM CARE MANAGEMENT COORDINATOR 07/20/2016 3:37 PM CARE MANAGEMENT COORDINATOR Val Colunga MD LAB - URINALYSIS ORD ERABLES Performing Organization Address City/[facility]/ZIP Co de Phone Number [facility] [address] [place] [address] * CALCIUM/CREAT RATIO URINE RANDOM PANEL (07/20/2016 3:24 PM CARE MANAGEMENT COORDINATOR) Only the most recent of3 resultswithin the time period is included. Calcium Urine 15.25 mg/dL 07/20/2016 4:38 PM [facility] Creatinine Urine 96.32 mg/dL 07/20/2016 4:38 PM [facility] Calcium/Creatin ine Ratio Urine 0.16 07/20/2016 4:38 PM [facility] Urine URINE SPECIMEN OBTAINED BY CLEAN CATCH PROCEDURE / Unknown 07/20/2016 3:24 PM CARE MANAGEMENT COORDINATOR 07/20/2016 3:37 PM CARE MANAGEMENT COORDINATOR Narrative [facility] - 07/20/2016 4:38 PM CARE MANAGEMENT COORDINATOR Normal <0.16 Borderline 0.16-0.20 Abnormal >0.20 Val Colunga MD LAB - URINE CHEMISTR Y ORDERABLES Performing Organization Address [facility] Co de Phone Number [facility] [address] [place] [address] * PROTEIN CREATININE RATIO URINE RANDOM PNL (07/20/2016 3:24 PM CARE MANAGEMENT COORDINATOR) Protein Urine <6.8 <12 mg/dL 07/20/2016 4:38 PM [facility] Creatinine Urine 96.32 mg/dL 07/20/2016 4:38 PM [facility] Protein/Creatin ine Ratio Urine <0.07 <0.10 07/20/2016 4:38 PM [facility] Urine URINE SPECIMEN OBTAINED BY CLEAN CATCH PROCEDURE / Unknown 07/20/2016 3:24 PM CARE MANAGEMENT COORDINATOR 07/20/2016 3:37 PM CARE MANAGEMENT COORDINATOR Val Colunga MD LAB - URINE CHEMISTR Y ORDERABLES Performing Organization Address City/[facility]/ZIP Co de Phone Number [facility] [address] [place] [address] * UROFLOWMETRY (06/03/2016 4:23 PM CARE MANAGEMENT COORDINATOR) Narrative 06/03/2016 4:23 PM CARE MANAGEMENT COORDINATOR Ordered by an unspecified provider. Scanned Document PROCEDURE ORDERAB LES * EMG ACC (06/03/2016 2:07 PM CARE MANAGEMENT COORDINATOR) Aba Abarca MD - 06/03/2016 2:07 PM CARE MANAGEMENT COORDINATOR Aba Childers MD 06/03/2016 2:07 PM EMG patches placed: 2 on abdomen - L & R, 1 on hip (ground); 1 on either side of rectum in the 3 & 10 o'clock positions, 1 on hip (ground). Uroflow with EMG Voided volume (ml) = 408 PVR per bladderscan (ml) = 20 Max flow rate (ml/s) = 54 Avg flow rate (ml/s) = 14 Flow time (s) = 28 EMG activity = abdominal - intermittent activity; pelvic floor - intermittent activity Summary: prolonged flow time, emptied well. RECOMMENDATIONS: No changes to current regimen Kristen Monroy APRN-[facility] PROCEDURE O RDERABLES * UROFLOWMETRY ACC (06/03/2016 2:07 PM CARE MANAGEMENT COORDINATOR) Aba Abarca MD - 06/03/2016 2:07 PM CARE MANAGEMENT COORDINATOR Aba Childers MD 06/03/2016 2:07 PM EMG patches placed: 2 on abdomen - L & R, 1 on hip (ground); 1 on either side of rectum in the 3 & 10 o'clock positions, 1 on hip (ground). Uroflow with EMG Voided volume (ml) = 408 PVR per bladderscan (ml) = 20 Max flow rate (ml/s) = 54 Avg flow rate (ml/s) = 14 Flow time (s) = 28 EMG activity = abdominal - intermittent activity; pelvic floor - intermittent activity Summary: prolonged flow time, emptied well. RECOMMENDATIONS: No changes to current regimen Kristen Monroy APRN-[employer] PROCEDURE O RDERABLES * US BLADDER RESIDUAL ACC (06/03/2016 2:07 PM CARE MANAGEMENT COORDINATOR) Aba Abarca MD - 06/03/2016 2:07 PM CARE MANAGEMENT COORDINATOR Aba Childers MD 06/03/2016 2:07 PM EMG patches placed: 2 on abdomen - L & R, 1 on hip (ground); 1 on either side of rectum in the 3 & 10 o'clock positions, 1 on hip (ground). Uroflow with EMG Voided volume (ml) = 408 PVR per bladderscan (ml) = 20 Max flow rate (ml/s) = 54 Avg flow rate (ml/s) = 14 Flow time (s) = 28 EMG activity = abdominal - intermittent activity; pelvic floor - intermittent activity Summary: prolonged flow time, emptied well. RECOMMENDATIONS: No changes to current regimen Kristen Monroy APRN-[employer] PROCEDURE O RDERABLES * HIV-1 HIV-2 ANTIBODY + HIV P24 AG PANEL (06/01/2016 3:44 PM CARE MANAGEMENT COORDINATOR) Pathologist [facility] HIV1/2 Ab + P24 Ag Non Reactive Non Reactive 06/01/2016 5:21 PM CARE MANAGEMENT COORDINATOR [facility] Blood BLOOD SPECIMEN / Unknown Lab Venipuncture / Unknown 06/01/2016 3:44 PM CARE MANAGEMENT COORDINATOR 06/01/2016 4:06 PM CARE MANAGEMENT COORDINATOR Narrative [facility] - 06/01/2016 5:21 PM CARE MANAGEMENT COORDINATOR No Laboratory evidence of HIV infection. Kristen Monroy APRN-SUPER[employer] LAB - CHEMISTR Y ORDERABLES [facility] [address] [place] [address] * RPR (06/01/2016 3:44 PM CARE MANAGEMENT COORDINATOR) Pathologist [facility] RPR Non Reactive Non Reactive 06/02/2016 10:12 AM CARE MANAGEMENT COORDINATOR [facility] Blood BLOOD SPECIMEN / Unknown Lab Venipuncture / Unknown 06/01/2016 3:44 PM CARE MANAGEMENT COORDINATOR 06/01/2016 4:06 PM CARE MANAGEMENT COORDINATOR Kristen Monroy PATTERN GRADER CUTTER-[facility] LAB - CHEMISTR Y ORDERABLES [facility] [address] [place] [address] * CHLAMYDIA + GC AMPLIFIED PROBE (06/01/2016 3:33 PM CARE MANAGEMENT COORDINATOR) Chlamydia Amplified Probe Negative Negative 06/02/2016 9:33 AM CARE MANAGEMENT COORDINATOR [facility] GC Amplified Probe Negative Negative 06/02/2016 9:33 AM CARE MANAGEMENT COORDINATOR [facility] Urine URINE / Unknown 06/01/2016 3 :33 PM CARE MANAGEMENT COORDINATOR 06/01/2016 3:50 PM CARE MANAGEMENT COORDINATOR Narrative [facility] - 06/02/2016 9:33 AM CARE MANAGEMENT COORDINATOR This test was developed and its performance characteristics determined by the [facility], [facility]. Female urine specimens tested by the [facility] [place] have not been cleared or approved by the U.S. Food and Drug Administration (FDA). The laboratory is regulated under the Clinical Laboratory Improvement Amendments (CLIA) as qualified to perform high-complexity testing. This test is used for clinical purposes. It should not be regarded as investigational or for research. Results based on detection/no detection of ribosomal RNA by amplified method. Kristen Monroy APRN-[employer] LAB - MICROBIO LOGY ORDERABLES [facility] [address] [place], [place] [address], [facility] [phone] * (ABNORMAL) URINALYSIS MICROSCOPIC ONLY W/REFLEX CULTURE (04/11/2016 2:10 PM CDT) Only the most recent of2 resultswithin the time period is included. RBC UA 0-2 0-2, 2-5 # /hpf 04/11/2016 3:[address] [facility] WBC UA 5-10(A) 0-2, 2-5 # /hpf 04/11/2016 3:[address] [facility] Bacteria UA Trace None Seen, Trace 04/11/2016 3:[address] [facility] Epithelial Cell UA 5-10(A) 0-2, 2-5 # /hpf 04/11/2016 3:[address] [facility] Mucus UA 2+ 04/11/2016 3:[address] [facility] Reflex Status Culture to follow 04/11/2016 3:[address] [facility] Urine URINE SPECIMEN OBTAINED BY CLEAN CATCH PROCEDURE / Unknown 04/11/2016 2:10 PM CDT 04/11/2016 2:22 PM CDT Aba Childers MD LAB - URINALYSIS ORD ERABLES [facility] [address] [place] [address] * (ABNORMAL) URINALYSIS ROUTINE W/REFLEX TO CULTURE (04/11/2016 2:10 PM CDT) Only the most recent of2 resultswithin the time period is included. Color UA Yellow Straw, Yellow, Dark Yellow 04/11/2016 3:[address] [facility] Clarity UA Clear 04/11/2016 3:10 PM [address] [facility] Specific [place] UA 1.025 1.005 - 1.030 04/11/2016 3:10 PM [address] [facility] pH UA 7.0 5.0 - 8.0 pH 04/11/2016 3:[address] [facility] Protein UA Negative Negative 04/11/2016 3:10 PM [address] [facility] Blood UA Negative Negative 04/11/2016 3:10 [address] [facility] Leukocyte UA Trace(A) Negative 04/11/2016 3:[address] [facility] Nitrite UA Negative Negative 04/11/2016 3:[address] [facility] Glucose UA Negative Negative 04/11/2016 3:[address] [facility] Ketone UA Negative Negative 04/11/2016 3:[address] [facility] Bilirubin UA Negative Negative 04/11/2016 3:[address] [facility] Urobilinogen UA 0.2 0.1 - 1.0 EU/dL 04/11/2016 3:[address] [facility] Reflex Status Culture to follow 04/11/2016 3:[address] [facility] Urine URINE SPECIMEN OBTAINED BY CLEAN CATCH PROCEDURE / Unknown 04/11/2016 2:10 PM CDT 04/11/2016 2:22 PM CDT Aba Childers MD LAB - URINALYSIS ORD ERABLES [facility] [address] [place] [address] * CULTURE URINE (04/11/2016 2:10 PM CDT) Only the most recent of6 resultswithin the time period is included. Culture No Growth (<1,000 CFU/mL) EZEQUIEL 04/12/2016 2:11 PM CDT [facility] Urine URINE SPECIMEN OBTAINED BY CLEAN CATCH PROCEDURE / Unknown 04/11/2016 2:10 PM CDT 04/11/2016 2:22 PM CDT Aba Childers MD LAB - MICROBIOLOGY O RDERABLES Performing Organization Address City/[facility]/ZIP Co de Phone Number [facility] [address] [place] [address], [facility] [phone] * (ABNORMAL) HCG URINE QUALITATIVE - POCT (IP) BEAKER (12/23/2015 3:38 PM CDT) Only the most recent of4 resultswithin the time period is included. HCG Qual Urine Positive(A ) Negative [facility] QC Verified Yes Yes [facility] PO CT TESTING Urine specimen (specimen) URINE / Unknown 12/23/2015 3:38 PM CDT Kalie Mosley MD LAB - POINT OF CARE ORDERABLES Performing Organization Address [facility] Co de Phone Number [facility] [address] [place] [address], [facility] [phone] * CALPROTECTIN FECAL (12/09/2015 4:54 PM CDT) Calprotectin Fecal 26 0 - 120 ug/g 12/16/2015 4:11 PM CDT [facility] ([facility] Comment: Concentration Interpretation Follow-Up <16 - 50 ug/g Normal None >50 -120 ug/g Borderline Re-evaluate in 4-6 weeks >120 ug/g Abnormal Repeat as clinically indicated Stool specimen (specimen) STOOL SPECIMEN / Unknown 12/09/2015 4:54 PM CDT 12/09/2015 5:17 PM CDT Narrative [facility] ([facility]) - 12/16/2015 4:11 PM CDT Performed at: - [address] [id number] [employer]sembl[employer] For Puller Over: Arun Day MD, Phone: [phone] Patti Grande MD LAB - BODY FLUID ORD ERABLES Performing Organization Address City/[facility]/ZIP Co de Phone Number [facility] ([facility]) [address] [place] [address] * CULTURE STOOL+ E COLI SHIGA-LIKE TOXIN (12/09/2015 4:53 PM CDT) Pathologist [facility] Culture No growth Salmonella, Shigella, Campylobacter , E. coli 0157:h7 or Yersinia EZEQUIEL 12/13/2015 3:03 PM CDT [facility] Culture Negative E. coli Shiga-like toxin (NM) EZEQUIEL 12/13/2015 3:03 PM CDT [facility] Stool STOOL SPECIMEN / Unknown 12/09/2015 4:53 PM CDT 12/09/2015 6:56 PM CDT Patti Grande MD LAB - MICROBIOLOGY O RDERABLES Performing Organization Address [facility] Co de Phone Number [facility] [address] [place] [address], [facility] [phone] * C-REACTIVE PROTEIN (12/07/2015 4:47 PM CDT) Only the most recent of2 resultswithin the time period is included. Pathologist [facility] C-Reactive Protein <0.20 <=0.50 mg/dL 12/07/2015 5:[address] [facility] Blood BLOOD SPECIMEN / Unknown 12/07/2015 4:47 PM CDT 12/07/2015 5:35 PM CDT Rika [place] MD LAB - CHEMISTRY ORD ERABLES [facility] [address] [place] [address] * SED RATE WESTERGREN (12/07/2015 4:47 PM CDT) Only the most recent of2 resultswithin the time period is included. Erythrocyte Sedimentation Rate Westergren 7 0 - 12 mm/hr 12/07/2015 5:[address] [facility] Blood BLOOD SPECIMEN / Unknown 12/07/2015 4:47 PM CDT 12/07/2015 5:20 PM CDT Rika [place] MD LAB - HEMATOLOGY OR DERABLES [facility] [address] [place] [address] * (ABNORMAL) CBC W AUTO DIFFERENTIAL (12/07/2015 4:47 PM CDT) Only the most recent of3 resultswithin the time period is included. WBC 6.8 4.5 - 11.0 x10E9/L 12/07/2015 5:[address] [facility] WBC Corrected x10E9/L 12/07/2015 5:02 PM [address] [facility] RBC 4.69 4.10 - 5.10 x10E12/L 12/07/2015 5:[address] [facility] Hemoglobin 13.5 12.0 - 16.0 gm/dL 12/07/2015 5:[address] [facility] Hematocrit 38.1 36.0 - 47.0 % 12/07/2015 5:[address] [facility] MCV 81.2 78.0 - 98.0 fl 12/07/2015 5:[address] [facility] MCH 28.8 25.0 - 35.0 pg 12/07/2015 5:[address] [facility] MCHC 35.4 31.0 - 37.0 gm/dL 12/07/2015 5:02 PM [facility] Platelet Count 226 100 - 400 x10E9/L 12/07/2015 5:02 PM [address] [facility] RDW-CV 12.5 11.5 - 14.0 % 12/07/2015 5:02 [address] [facility] MPV 10.9(H) 6.0 - 9.5 fl 12/07/2015 5:[address] [facility] Neutrophils % 61.0 31.0 - 78.0 % 12/07/2015 5:[address] [facility] Lymphocytes % 28.4 13.0 - 54.0 % 12/07/2015 5:[address] [facility] Monocytes % 7.7 4.0 - 13.0 % 12/07/2015 5:[address] [facility] Eosinophils % 2.0 0.0 - 8.0 % 12/07/2015 5:[address] [facility] Basophils % 0.6 % 12/07/2015 5:[address] [facility] Immature Granulocytes 0.3 % 12/07/2015 5:[address] [facility] Neutrophil Absolute 4.17 x10E9/L 12/07/2015 5:[address] [facility] Lymphocytes Absolute 1.94 x10E9/L 12/07/2015 5:[address] [facility] Monocytes Absolute 0.53 x10E9/L 12/07/2015 5:[address] [facility] Eosinophils Absolute 0.14 x10E9/L 12/07/2015 5:[address] [facility] Basophils Absolute 0.04 x10E9/L 12/07/2015 5:[address] [facility] Immature Granulocytes Absolute 0.02 x10E9/L 12/07/2015 5:[address] [facility] nRBC Auto 0 /100 WBC 12/07/2015 5:[address] [facility] Blood BLOOD SPECIMEN / Unknown Lab Venipuncture / Unknown 12/07/2015 4:47 PM CDT 12/07/2015 4:55 PM CDT Rika Swift MD LAB - HEMATOLOGY OR DERABLES [facility] [address] [place] [address] * (ABNORMAL) COMPREHENSIVE METABOLIC PANEL (12/07/2015 4:47 PM CDT) Only the most recent of3 resultswithin the time period is included. [facility] Glucose 91 70 - 105 mg/dL 12/07/2015 5:13 PM [facility] Sodium 139 136 - 145 mmol/L 12/07/2015 5:13 PM [facility] Potassium 3.7 3.5 - 5.1 mmol/L 12/07/2015 5:13 PM [facility] Chloride 108(H) 98 - 107 mmol/L 12/07/2015 5:13 PM [facility] CO2 23 20 - 28 mmol/L 12/07/2015 5:13 PM [facility] Calcium 8.84(L) 9.08 - 10.48 mg/dL 12/07/2015 5:13 PM [facility] Anion Gap 8 5 - 20 mmol/L 12/07/2015 5:13 PM [facility] BUN 12.3 5.3 - 18.7 mg/dL 12/07/2015 5:13 PM [facility] Creatinine 0.70 0.61 - 1.07 mg/dL 12/07/2015 5:13 PM [facility] Alkaline Phosphatase 55(L) 100 - 390 U/L 12/07/2015 5:13 PM [facility] ALT 9 8 - 65 U/L 12/07/2015 5:13 PM [facility] AST 13 3 - 35 U/L 12/07/2015 5:13 PM [facility] Protein Total 7.2 6.3 - 8.2 gm/dL 12/07/2015 5:13 PM [facility] Albumin 4.3 3.3 - 4.9 gm/dL 12/07/2015 5:13 PM [facility] Bilirubin Total 0.7 0.3 - 1.2 mg/dL 12/07/2015 5:13 PM [facility] eGFR by MDRD >60 mL/min/1. 73m2 12/07/2015 5:13 PM [facility] Comment: eGFR calculations are not performed for children under 18 years old. eGFR by MDRD >60 mL/min/1. 73m2 12/07/2015 5:13 PM [facility] Comment: eGFR calculations are not performed for children under 18 years old. Blood BLOOD SPECIMEN / Unknown Lab Venipuncture / Unknown 12/07/2015 4:47 PM CDT 12/07/2015 4:58 PM CDT Rika Swift MD LAB - CHEMISTRY ORD ERABLES Performing Organization Address [facility]/ZIP Co de Phone Number [facility] [address] [place] [address] * (ABNORMAL) OCCULT BLOOD FECES (12/07/2015 4:33 PM CDT) Only the most recent of2 resultswithin the time period is included. Occult Blood Positive(A ) Negative 12/07/2015 5:[address] [facility] Stool STOOL SPECIMEN / Unknown 12/07/2015 4:33 PM CDT 12/07/2015 5:12 PM CDT Rika Swift MD LAB - BODY FLUID OR DERABLES Performing Organization Address [facility] de Phone Number [facility] [place] [address] * LAB RESULTS ORDER (07/23/2015 11:06 AM CARE MANAGEMENT COORDINATOR) Narrative 07/23/2015 11:06 AM CARE MANAGEMENT COORDINATOR Ordered by an unspecified provider. Scanned Document LAB - THERAPEUTIC DR TELLEZ MONITORING ORDERABLES * US KIDNEY AND BLADDER (07/20/2015 9:18 AM CARE MANAGEMENT COORDINATOR) Anatomical Region Laterality Modality Ultrasound 07/20/2015 9:26 AM CARE MANAGEMENT COORDINATOR Impressions 07/20/2015 10:29 AM CARE MANAGEMENT COORDINATOR Normal renal sonogram. Dictated by Twin Vo MD (Upper Trimmer). I, Bisi Aguilera, have personally reviewed the images and I agree with this report. Narrative 07/20/2015 10:29 AM CARE MANAGEMENT COORDINATOR EXAMINATION: Renal sonogram HISTORY: 15-year-old female with recurrent urinary tract infections. COMPARISON: No prior study is available for comparison. FINDINGS: The right kidney measures 10.3 x 4.0 x 4.7 cm. The left kidney measures 11.4 x 4.6 x 4.1 cm. The mean renal length for 17-18 years of age is 10.53 cm with one standard deviation of 0.29 cm. Therefore, these sizes are within normal limits for the patient's age. The renal architecture is normal with normal renal echogenicity and corticomedullary differentiation. There is no hydronephrosis. No renal mass or calculus is seen. The urinary bladder is minimally distended with a volume of 34 mL. The bladder wall is not thickened, measuring 3 mm. No distal ureteral dilatation is identified. Procedure Note Bisi Aguilera MD - 07/20/2015 EXAMINATION: Renal sonogram HISTORY: 15-year-old female with recurrent urinary tract infections. COMPARISON: No prior study is available for comparison. FINDINGS: The right kidney measures 10.3 x 4.0 x 4.7 cm. The left kidney measures 11.4 x 4.6 x 4.1 cm. The mean renal length for 17-18 years of age is 10.53 cm with one standard deviation of 0.29 cm. Therefore, these sizes are within normal limits for the patient's age. The renal architecture is normal with normal renal echogenicity and corticomedullary differentiation. There is no hydronephrosis. No renal mass or calculus is seen. The urinary bladder is minimally distended with a volume of 34 mL. The bladder wall is not thickened, measuring 3 mm. No distal ureteral dilatation is identified. IMPRESSION Normal renal sonogram. Dictated by Twin Vo MD (Upper Trimmer). I, Bisi Aguilera, have personally reviewed the images and I agree with this report. Kristen Monroy PATTERN [facility] ORDERABLES * [place] BLOOD SCREEN W/REFLEX TITER (12/15/2014 3:44 PM CDT) [place] Negative Negative 12/16/2014 8:54 AM CDT [facility] Blood BLOOD SPECIMEN / Unknown Lab Venipuncture / Unknown 12/15/2014 3:44 PM CDT 12/15/2014 4:24 PM CDT Maverick Ko MD LAB - CHEMISTRY KEV H[facility] Organization Address City/State/ZIP Co de Phone Number [facility] [address] [place] [address] * SS-B ANTIBODY (12/15/2014 3:44 PM CDT) SS-B Antibody 0 0 - 40 AU/mL 12/17/2014 8:52 PM CDT [facility] [place] [facility]) Comment: INTERPRETIVE INFORMATION: SSB (La) (GIFTY) Ab, IgG 29 AU/mL or Less ............. Negative 30 - 40 AU/mL ................ Equivocal 41 AU/mL or Greater .......... Positive SSB (La) antibody is seen in 50-60% of Sjogren syndrome cases and is specific if it is the only GIFTY antibody present. 15-25% of patients with systemic lupus erythematosus (SLE) and 5-10% of patients with progressive systemic sclerosis (PSS) also have this antibody. Blood specimen (specimen) BLOOD SPECIMEN / Unknown Lab Venipuncture / Unknown 12/15/2014 3:44 PM CDT 12/15/2014 4:24 PM CDT Maverick Ko MD LAB - CHEMISTRY KEV HAMIL[place] [facility] [place] [facility]) [address] * (ABNORMAL) VITAMIN D 25-HYDROXY (12/15/2014 3:44 PM CDT) Vitamin D, 25 Hydroxy 29.26(L) 30 - 100 ng/mL 12/15/2014 6:48 PM CDT [facility] Blood BLOOD SPECIMEN / Unknown Lab Venipuncture / Unknown 12/15/2014 3:44 PM CDT 12/15/2014 4:24 PM CDT Narrative [facility] - 12/15/2014 6:48 PM CDT Vitamin D Status: Deficiency <20 ng/mL Insufficiency 20-30 ng/mL Sufficiency 30-100 ng/mL Toxicity >100 ng/mL Maverick Ko MD LAB - CHEMISTRY KEV HAMILTON [facility] [address] [place] [address] * TSH (12/15/2014 3:44 PM CDT) TSH 3.07 0.35 - 4.95 uIU/mL 12/15/2014 6:[address] [facility] Blood BLOOD SPECIMEN / Unknown Lab Venipuncture / Unknown 12/15/2014 3:44 PM CDT 12/15/2014 4:28 PM CDT Maverick Ko MD LAB - CHEMISTRY KEV HAMILTON [facility] [place] [address] * CARDIAC HOLTER MONITOR ORDER (08/14/2014 9:36 PM CARE MANAGEMENT COORDINATOR) Narrative 08/14/2014 9:36 PM CARE MANAGEMENT COORDINATOR Ordered by an unspecified provider. Scanned Document CARDIAC SERVICES ORD ERABLES * ECHO CONSULT - PEDIATRIC (07/24/2014 1:53 PM CARE MANAGEMENT COORDINATOR) 07/24/2014 1:53 PM CARE MANAGEMENT COORDINATOR Narrative [facility] - 07/24/2014 3:01 PM CARE MANAGEMENT [place]IN[place] [phone] Fax Pediatric Transthoracic Report Pat.Name: CLEMENTINA CAMACHO Pat.ID: [id number] .Date: 07/24/2014 Exam Time: 1:53:00 PM Study Type:Pediatric TTE Height: 172.1cm Weight: 61.3kg BSA: 1.73 m2 Age: 1 2000,14Y Sex: FEMALE BP: 120/68 Sonogrphr: CARMELLA Thomas Pat. Stat.:Outpatient Room: Echo Lab 3 Reason for Study:Chest pain History / Clinical:chest pain Procedures:Doppler Color Flow, Doppler Echo Complete, TTE 2D w/o Contrast Visit ID: [id number] SUMMARY: Normal intracardiac anatomy and normal biventricular systolic function. No pathologic valve stenosis or regurgitation. Findings Anatomic Relationships: Visceral situs: Normal. Cardiac apex: Levocardia. Atrial situs: Solitus. AV alignment: Concordant. Ventricular looping: D-looped. VA connection: Concordant. Arterial relationships: Normal. Systemic Veins: SVC: Normal SVC with normal flow. IVC: Normal IVC. Pulmonary Veins: Pulmonary veins drain normally to LA. RA Size: Normal. LA Size: Normal. Atrial Septum: Normal Defect sz. None Shunt: None. Tricuspid Valve: Structure: Normal. Stenosis:No. Regurgitation: Physiologic. Mitral Valve: Structure: Normal. Stenosis: No. Regurgitation: No. Ventricles: RV size: Normal. RV wall thickness: Normal. RV function: Normal. LV size: Normal. LV wall thickness: Normal. LV function:Normal. IVS: Motion: Normal Defect Type/Size: None./None. Shunt: None. Outflow Tracts: RVOT: Normal. LVOT: Normal. Grt Vessls: Normal Pulmonary Valve: Structure: Normal. Stenosis: No. Regurgitation: Physiologic. Aortic Valve: Structure: Normal. Stenosis: No. Regurgitation: No. Pulmonary Artery: MPA: Normal. LPA: Normal RPA: Normal. Aorta: Aortic root: Normal. Aortic arch: Normal. Arch sidedness: Not evaluated. PDA: No. Shunt:None. Coronaries: Normal coronary artery origins. Pericardium: Normal Pleural Effusion: None. MEASUREMENTS: MMODE Aorta Ao Rt 2.84 cm Ventricular Septum IVSd 0.51 cm (zsc -3.1) IVSs 0.85 cm (zsc -2.5) Left Atrium LAID 2.89 cm Left Ventricle LV%fs 47.06 % LVIDd 4.82 cm (zsc -0.2) LVEDV 108.71 ml LVIDs 2.55 cm (zsc -1.9) LV EF 78.36 % LV Mass 89.91 gram (zsc -3) LVESV 23.52 ml LV Mass 83.41 gram (zsc -3.4) Left Ventricle 77.31 gram LV SV 85.19 ml LVPW LVPWd 0.51 cm (zsc -3.2) LVPWs 1.48 cm (zsc 0) Ratios LA/Ao 1.02 LV Left Ventricle Mass by M-mode Left Ventricle 73.33 gram Signed 07/24/2014 03:01 PM Krishna Rico MD Procedure Note Reading, No - 07/24/2014 [address] [place] [phone] Fax Pediatric Transthoracic Report Pat.Name: CLEMENTINA CAMACHO Pat.ID: [id number] .Date: 07/24/2014 Exam Time: 1:53:00 PM Study Type:Pediatric TTE Height: 172.1cm Weight: 61.3kg BSA: 1.73 m2 Age: 1 2000,14Y Sex: FEMALE BP: 120/68 Sonogrphr: CARMELLA Thomas Pat. Stat.:Outpatient Room: Echo Lab 3 Reason for Study:Chest pain History / Clinical:chest pain Procedures:Doppler Color Flow, Doppler Echo Complete, TTE 2D w/o Contrast Visit ID: [id number] SUMMARY: Normal intracardiac anatomy and normal biventricular systolic function. No pathologic valve stenosis or regurgitation. Findings Anatomic Relationships: Visceral situs: Normal. Cardiac apex: Levocardia. Atrial situs: Solitus. AV alignment: Concordant. Ventricular looping: D-looped. VA connection: Concordant. Arterial relationships: Normal. Systemic Veins: SVC: Normal SVC with normal flow. IVC: Normal IVC. Pulmonary Veins: Pulmonary veins drain normally to LA. RA Size: Normal. LA Size: Normal. Atrial Septum: Normal Defect sz. None Shunt: None. Tricuspid Valve: Structure: Normal. Stenosis:No. Regurgitation: Physiologic. Mitral Valve: Structure: Normal. Stenosis: No. Regurgitation: No. Ventricles: RV size: Normal. RV wall thickness: Normal. RV function: Normal. LV size: Normal. LV wall thickness: Normal. LV function:Normal. IVS: Motion: Normal Defect Type/Size: None./None. Shunt: None. Outflow Tracts: RVOT: Normal. LVOT: Normal. Grt Vessls: Normal Pulmonary Valve: Structure: Normal. Stenosis: No. Regurgitation: Physiologic. Aortic Valve: Structure: Normal. Stenosis: No. Regurgitation: No. Pulmonary Artery: MPA: Normal. LPA: Normal RPA: Normal. Aorta: Aortic root: Normal. Aortic arch: Normal. Arch sidedness: Not evaluated. PDA: No. Shunt:None. Coronaries: Normal coronary artery origins. Pericardium: Normal Pleural Effusion: None. MEASUREMENTS: MMODE Aorta Ao Rt 2.84 cm Ventricular Septum IVSd 0.51 cm (zsc -3.1) IVSs 0.85 cm (zsc -2.5) Left Atrium LAID 2.89 cm Left Ventricle LV%fs 47.06 % LVIDd 4.82 cm (zsc -0.2) LVEDV 108.71 ml LVIDs 2.55 cm (zsc -1.9) LV EF 78.36 % LV Mass 89.91 gram (zsc -3) LVESV 23.52 ml LV Mass 83.41 gram (zsc -3.4) Left Ventricle 77.31 gram LV SV 85.19 ml LVPW LVPWd 0.51 cm (zsc -3.2) LVPWs 1.48 cm (zsc 0) Ratios LA/Ao 1.02 LV Left Ventricle Mass by M-mode Left Ventricle 73.33 gram Signed 07/24/2014 03:01 PM Krishna Rico MD Nolan Rico MD ECHO ORDERABLES Performing Organization Address [facility] Co de Phone Number [facility] [address] [place] [address] * EKG 15-LEAD (05/11/2014 10:33 PM CARE MANAGEMENT COORDINATOR) Ventricular Rate 105 BPM CG MUSE Atrial Rate 105 BPM CG MUSE P-R Interval 186 ms CG MUSE QRS Duration ms 86 ms CG MUSE Q-T Interval ms 334 ms CG MUSE QTC Calculation (Bezet) 442 ms CG MUSE Calculated P Entiat 64 degrees CG MUSE Calculated R Entiat 73 degrees CG MUSE Calculated T Entiat 45 degrees CG MUSE Interpretation EKG * Pediatric ECG Analysis * Normal sinus rhythm Normal ECG Confirmed by MIKEY YOUNG ([id number]) on 05/28/2014 1:52:59 PM CG MUSE 05/11/2014 10:3 3 PM CARE MANAGEMENT COORDINATOR 05/28/2014 1:52 PM CARE MANAGEMENT COORDINATOR Mary Lou Cooper DO ECG ORDERABLES Performing Organization Address [facility] Co de Phone Number CG MUSE * XR ELBOW 2 VW RIGHT (05/06/2013 9:36 AM CARE MANAGEMENT COORDINATOR) Anatomical Region Laterality Modality Upper Extremity Radiographic Chantale ging 05/06/2013 9:42 AM CARE MANAGEMENT COORDINATOR Impressions 05/06/2013 9:42 AM CARE MANAGEMENT COORDINATOR No fracture. Narrative 05/06/2013 9:42 AM CARE MANAGEMENT COORDINATOR 2 views of the right elbow performed May 06, 2013. History: Metal handle of torn hit elbow. Frontal and lateral views of the right elbow were obtained. There is no evidence of fracture, subluxation, or joint effusion. No radiopaque foreign bodies are seen in the visualized soft tissues about the elbow. Procedure Note Koki Velasco MD - 05/06/2013 2 views of the right elbow performed May 06, 2013. History: Metal handle of torn hit elbow. Frontal and lateral views of the right elbow were obtained. There is no evidence of fracture, subluxation, or joint effusion. No radiopaque foreign bodies are seen in the visualized soft tissues about the elbow. IMPRESSION No fracture. Raymundo Jason MD DIAGNOSTIC IMAGING [facility] Care Teams Upholstery Covers Inspector Relationship Specialty Start Date End Date Jordon Chiang MD Resident Student Resident 01/21/16
--- OUTSIDE RECORDS SUMMARY | 2024-08-03 12:45 | XMS_ITS | Referral Summary ---
Author Organization [facility] Address [address] [facility] [place] [address] Care Team Providers Care Engine House Helper Name Role Phone Jordon Chiang MD Unavailable Source Comments [facility],non-owned Affiliates and Associated Physician Practices is amultiple site organization consisting of ambulatory clinics and hospital sitesin [place], [place], [place] and [place]. This disclosure is being madepursuant to the Care Everywhere program and may not contain all information available regarding this patient. Last updated 18.[facility] Allergies No known active allergies Medications * [...] daily 30 Packet 0 12/07/2015 Active Lactobacillus-Inulin ([facility]) capsuleIndications:Re current UTI Take 1 Cap by mouth once daily 30 Cap 5 06/01/2016 Active Active Problems Problem Noted Date Diagnosed Date Sexually active at young age 1206/06/2016 Recurrent UTI 06/06/2016 Voiding dysfunction 06/06/2016 Hypercalciuria 06/06/2016 Immunizations Name Administration Dates Next Due HEP A VACCINE, ADULT 09/21/2016 TDAP (7yrs+) 12/15/2019 Social History Tobacco Use Types Packs/Day Years [...] Comments Blood Pressure 108/68 07/20/2016 2:15 PM SURVEY ASSOCIATE Pulse 72 04/11/2016 1:00 PM CDT Temperature 37.2 C (99 F) 12/23/2015 2:48 PM CDT Respiratory Rate 18 04/11/2016 1:00 PM CDT Oxygen Saturation 98% 12/23/2015 2:48 PM CDT RA Inhaled Oxygen Concentration - - Weight 65.4 kg (144 lb 2.9 oz) 07/20/2016 2:15 P M SURVEY ASSOCIATE Height 172 cm (5' 7.72 ) 07/20/2016 2:15 PM SURVEY ASSOCIATE Body Mass Index 22.11 07/20/2016 2:15 PM SURVEY ASSOCIATE Plan of Treatment Not on file Procedures Procedure Name Priority Date/Time Associated Diagnosis Comments HIV-1 HIV-2 ANTIBODY + HIV P24 AG PANEL Routine 06/01/2016 3:44 PM SURVEY ASSOCIATE Sexually active at young age CHLAMYDIA + GC AMPLIFIED PROBE Routine 06/01/2016 3:33 PM SURVEY ASSOCIATE Sexually active at young age from Last 3 Months or Most Recently Relevant to Health Maintenance Results * HIV-1 HIV-2 ANTIBODY + HIV P24 AG PANEL (06/01/2016 3:44 PM SURVEY ASSOCIATE) HIV1/2 Ab + P24 Ag Non Reactive Non Reactive 06/01/2016 5:21 PM SURVEY ASSOCIATE [facility] Blood BLOOD SPECIMEN / Unknown Lab Venipuncture / Unknown 06/01/2016 3:44 PM SURVEY ASSOCIATE 06/01/2016 4:06 PM SURVEY ASSOCIATE Narrative [facility] - 06/01/2016 5:21 PM SURVEY ASSOCIATE No Laboratory evidence of HIV infection. Kristen Monroy BLUEPRINT BLOCKER-YARD CLERK LAB - CHEMISTR Y ORDERABLES [facility] [address] [place] [id number] * CHLAMYDIA + GC AMPLIFIED PROBE (06/01/2016 3:33 PM SURVEY ASSOCIATE) Chlamydia Amplified Probe Negative Negative 06/02/2016 9:33 AM SURVEY ASSOCIATE [facility] GC Amplified Probe Negative Negative 06/02/2016 9:33 AM SURVEY ASSOCIATE [facility] Urine URINE / Unknown 06/01/2016 3 :33 PM SURVEY ASSOCIATE 06/01/2016 3:50 PM SURVEY ASSOCIATE Narrative [facility] - 06/02/2016 9:33 AM SURVEY ASSOCIATE This test was developed and its performance characteristics determined by the [facility], [facility]. Female urine specimens tested by the [facility] have not been cleared or approved by the U.S. Food and Drug Administration (FDA). The laboratory is regulated under the Clinical Laboratory Improvement Amendments (CLIA) as qualified to perform high-complexity testing. This test is used for clinical purposes. It should not be regarded as investigational or for research. Results based on detection/no detection of ribosomal RNA by amplified method. Kristen Monroy BLUEPRINT BLOCKER-YARD CLERK LAB - MICROBIO LOGY ORDERABLES [facility] [address] [place] [address], [facility] [phone] from Last 3 Months or Most Recently Relevant to Health Maintenance Care Teams Engine House Helper Relationship Specialty Start Date End Date Jordon Chiang MD Resident Student Resident 01/21/16
--- OUTSIDE RECORDS SUMMARY | 2024-08-03 12:45 | XMS_ITS | Referral Summary ---
Author Organization [facility] Address [address] [place] [address] Care Team Providers Care Paper Mill Manager Name Role Phone Marcie Pollard NP Primary Care Provider [phone] Allergies Active Allergy Reactions Criticality Noted Date [...] 1206/06/2016 Voiding dysfunction 06/06/2016 Anxiety disorder 09/15/2015 Social History Tobacco Use Types Packs/Day Years [...] on file Legal Sex Female 11:05 PM CUSTOMS AND IMMIGRATION OFFICER Gender Identity Not on file Sexual Orientation Not on file Last Filed Vital Signs Vital Sign Reading Time Taken Comments Blood Pressure 102/62 02/16/2024 9:25 AM CDT Pulse 102 02/16/2024 9:25 AM CDT Temperature 36.2 C (97.2 F) 07/28/2023 10:38 AM CUSTOMS AND IMMIGRATION OFFICER Respiratory Rate 13 07/28/2023 2:40 PM CUSTOMS AND IMMIGRATION OFFICER Oxygen Saturation 96% 02/16/2024 9:25 AM CDT Inhaled Oxygen Concentration - - Weight 94.8 kg (209 lb) 02/16/2024 9:25 AM CDT Height 172.7 cm (5' 8 ) 02/16/2024 9:25 AM CDT Body Mass Index 31.78 02/16/2024 9:25 AM CDT Plan of Treatment Upcoming Encounters Date Type Department Care Team (Late st Contact Info) Description 08/05/2024 10:15 AM CUSTOMS AND IMMIGRATION OFFICER Hospital Encounter [facility] OP Cardiac Testing [address] [place] [address] Yuriy Mark MD [address] [facility] [address] [address] [facility] [id number] [facility] Care Teams Paper Mill Manager Relationship Specialty Start Date End Date Marcie Pollard NP [address] [place] [address] PCP - General Spa Manager 02/16/24
--- OUTSIDE RECORDS SUMMARY | 2024-08-03 12:45 | XMS_ITS | Encounter Summary ---
Author Organization [facility] Address [address] [place] [address] Care Team Providers Care Fuel Cell Engineer Name Role Phone Justin Andrews MD Primary Care Provider [phone] Jordon Chiang MD Unavailable Reason for Visit * Reason Onset Date Comments Question 12/09/2015 Encounter Details Date Type Department Care Team (Late st Contact Info) Description 12/09/2015 Telephone [facility] - [address] [place] [address] Hunter Oscar MD [facility] [place] [address] Question Social History Tobacco Use Types Packs/Day Years Used Date Smoking Tobacco: Passive Smo ke Exposure - Never Smoker Alcohol Use Standard Drinks/Week Comments No 0 (1 standard drink = 0.6 oz pur e alcohol) Sex and Gender Information Value Date Recorded Sex Assigned at Not on file Gender Identity Not on file Sexual Orientation Not on file documented as of this encounter Miscellaneous Notes * Telephone Encounter - Mattie Jarrell RN - 12/09/2015 12:50 PM CDT No answer @ number left by mom. LM on mom's identified VM that if she feels the blood loss per rectum is excessive that she needs to bring to ED (unable to guarantee admission) or have seen by PMD. To obtain an earlier appt she also needs to go thru PMD--have physician call her to discuss with one of our physicians. * Telephone Encounter - Nubia Delgadillo - 12/09/2015 12:12 PM CDT Mom reports that Janeth is bleeding a heavy bright red flow from rectal area. Patient was seen inthe ER on 12/07/2015 but was sent home against moms wishes. She has a APPLIED RESEARCH DIRECTOR appt scheduled 12/28/2015.Should she go back to ER and if she does will/can she be admitted? Should she have sooner appt? documented in this encounter Plan of Treatment Not on file documented as of this encounter Visit Diagnoses Not on filedocumented in this encounter Care Teams Fuel Cell Engineer Relationship Specialty Start Date End Date Justin Andrews MD [facility] [place] [address] PCP - General Pediatrics 12/07/15 04/10/16 Jordon Chiang MD [address] [place] [address] Resident Student Resident 01/21/16 documented as of this encounter
[2024-08-03 12:49] VITALS: BP 139/64; PULSE 95; RESP 18; TEMP 37.1; O2SAT 100
--- OUTSIDE RECORDS SUMMARY | 2024-08-03 14:37 | XMS_ITS | Clinical Summary ---
Author Organization [facility] Address [address] [place] [address] Care Team Providers Care Channel Lip Wetter Name Role Phone Jordon Chiang MD Unavailable Source Comments [facility],non-owned Affiliates and Associated Physician Practices is amultiple site organization consisting of ambulatory clinics and hospital sitesin [place], [place], [place] and [place]. This disclosure is being madepursuant to the Care Everywhere program and may not contain all information available regarding this patient. Last updated 18.[facility] Allergies No known active allergies Medications * [...] daily 30 Packet 0 12/07/2015 Active Lactobacillus-Inulin ([facility]) capsuleIndications:Re current UTI Take 1 Cap [...] defect Brother minna nary artery disease ? FL<65(female) Maternal Grandmother Sudd. <30 Maternal Uncle Anxiety Disorder Mother Bipolar Disorder Mother FL<65(female) Paternal Grandmother Congenital Heart defect Sister vsd Arrhythmia Neg Hx CVA<55(male) Neg Hx CVA<65(female) Neg Hx Cardiomyopathy Neg Hx Heart Surgery Neg Hx Long QT Syndrome Neg Hx FL<55(male) Neg Hx Marfan Syndrome Neg Hx Pacemaker [...] Comments Blood Pressure 108/68 07/20/2016 2:15 PM MACHINE TOOL TECHNICIAN INSTRUCTOR Pulse 72 04/11/2016 1:00 PM CDT Temperature 37.2 C (99 F) 12/23/2015 2:48 PM CDT Respiratory Rate 18 04/11/2016 1:00 PM CDT Oxygen Saturation 98% 12/23/2015 2:48 PM CDT RA Inhaled Oxygen Concentration - - Weight 65.4 kg (144 lb 2.9 oz) 07/20/2016 2:15 P M MACHINE TOOL TECHNICIAN INSTRUCTOR Height 172 cm (5' 7.72 ) 07/20/2016 2:15 PM MACHINE TOOL TECHNICIAN INSTRUCTOR Body Mass Index 22.11 07/20/2016 2:15 PM MACHINE TOOL TECHNICIAN INSTRUCTOR Plan of Treatment Health Maintenance Due Date [...] P24 AG PANEL Routine 06/01/2016 3:44 PM MACHINE TOOL TECHNICIAN INSTRUCTOR Sexually active at young age CHLAMYDIA + GC AMPLIFIED PROBE Routine 06/01/2016 3:33 PM MACHINE TOOL TECHNICIAN INSTRUCTOR Sexually active at young age from Last 3 Months or Most Recently Relevant to Health Maintenance Results * HIV-1 HIV-2 ANTIBODY + HIV P24 AG PANEL (06/01/2016 3:44 PM MACHINE TOOL TECHNICIAN INSTRUCTOR) Pathologist [facility] HIV1/2 Ab + P24 Ag Non Reactive Non Reactive 06/01/2016 5:21 PM MACHINE TOOL TECHNICIAN INSTRUCTOR [facility] Blood BLOOD SPECIMEN / Unknown Lab Venipuncture / Unknown 06/01/2016 3:44 PM MACHINE TOOL TECHNICIAN INSTRUCTOR 06/01/2016 4:06 PM MACHINE TOOL TECHNICIAN INSTRUCTOR Narrative [facility] - 06/01/2016 5:21 PM MACHINE TOOL TECHNICIAN INSTRUCTOR No Laboratory evidence of HIV infection. Kristen Monroy APRN-CHILDREN'S MINISTRY DIRECTOR LAB - CHEMISTR Y ORDERABLES Performing Organization Address City/State/[facility] Co de Phone Number [facility] [address] [place] [phone] * CHLAMYDIA + GC AMPLIFIED PROBE (06/01/2016 3:33 PM MACHINE TOOL TECHNICIAN INSTRUCTOR) Chlamydia Amplified Probe Negative Negative 06/02/2016 9:33 AM MACHINE TOOL TECHNICIAN INSTRUCTOR [facility] GC Amplified Probe Negative Negative 06/02/2016 9:33 AM [facility] Urine URINE / Unknown 06/01/2016 3 :33 PM MACHINE TOOL TECHNICIAN INSTRUCTOR 06/01/2016 3:50 PM MACHINE TOOL TECHNICIAN INSTRUCTOR Narrative [facility] - 06/02/2016 9:33 AM MACHINE TOOL TECHNICIAN INSTRUCTOR This test was developed and its performance characteristics determined by the [facility], [facility]. Female urine specimens tested by the [facility] have not been cleared or approved by the U.S. Food and Drug Administration (FDA). The laboratory is regulated under the Clinical Laboratory Improvement Amendments (CLIA) as qualified to perform high-complexity testing. This test is used for clinical purposes. It should not be regarded as investigational or for research. Results based on detection/no detection of ribosomal RNA by amplified method. Kristen Monroy INNER LAYER SCRUBBER TENDER-CHILDREN'S MINISTRY DIRECTOR LAB - MICROBIO LOGY ORDERABLES [facility] [address] [place] [address], [facility] [phone] from Last 3 Months or Most Recently Relevant to Health Maintenance Care Teams Channel Lip Wetter Relationship Specialty Start Date End Date Jordon Chiang MD Resident Student Resident 01/21/16
--- OUTSIDE RECORDS SUMMARY | 2024-08-03 14:37 | XMS_ITS | Referral Summary ---
Author Organization [facility] [employer] Address [address] [facility] [address] [place] [address] Care Team Providers Care Systems Administration Analyst Name Role Phone Jordon Chiang MD Unavailable Source Comments [facility] [employer],non-owned Affiliates and Associated Physician Practices is amultiple site organization consisting of ambulatory clinics and hospital sitesin [place], [place], [place] and [place]. This disclosure is being madepursuant to the Care Everywhere program and may not contain all information available regarding this patient. Last updated 18.[facility] [employer] Allergies No known active allergies Medications * [...] daily 30 Packet 0 12/07/2015 Active Lactobacillus-Inulin ([facility]) capsuleIndications:Re current UTI Take 1 Cap [...] Comments Blood Pressure 108/68 07/20/2016 2:15 PM TELEPRINTER INSTALLER Pulse 72 04/11/2016 1:00 PM CDT Temperature 37.2 C (99 F) 12/23/2015 2:48 PM CDT Respiratory Rate 18 04/11/2016 1:00 PM CDT Oxygen Saturation 98% 12/23/2015 2:48 PM CDT RA Inhaled Oxygen Concentration - - Weight 65.4 kg (144 lb 2.9 oz) 07/20/2016 2:15 P M TELEPRINTER INSTALLER Height 172 cm (5' 7.72 ) 07/20/2016 2:15 PM TELEPRINTER INSTALLER Body Mass Index 22.11 07/20/2016 2:15 PM TELEPRINTER INSTALLER Plan of Treatment Not on file Procedures Procedure Name Priority Date/Time Associated Diagnosis Comments HIV-1 HIV-2 ANTIBODY + HIV P24 AG PANEL Routine 06/01/2016 3:44 PM TELEPRINTER INSTALLER Sexually active at young age CHLAMYDIA + GC AMPLIFIED PROBE Routine 06/01/2016 3:33 PM TELEPRINTER INSTALLER Sexually active at young age from Last 3 Months or Most Recently Relevant to Health Maintenance Results * HIV-1 HIV-2 ANTIBODY + HIV P24 AG PANEL (06/01/2016 3:44 PM TELEPRINTER INSTALLER) HIV1/2 Ab + P24 Ag Non Reactive Non Reactive 06/01/2016 5:21 PM TELEPRINTER INSTALLER [facility] Blood BLOOD SPECIMEN / Unknown Lab Venipuncture / Unknown 06/01/2016 3:44 PM TELEPRINTER INSTALLER 06/01/2016 4:06 PM TELEPRINTER INSTALLER Narrative [facility] - 06/01/2016 5:21 PM TELEPRINTER INSTALLER No Laboratory evidence of HIV infection. Kristen Monroy SALESPERSON FLOWERS-CLAY DRY PRESS OPERATOR LAB - CHEMISTR Y ORDERABLES [facility] [address] [place] [id number] * CHLAMYDIA + GC AMPLIFIED PROBE (06/01/2016 3:33 PM TELEPRINTER INSTALLER) Chlamydia Amplified Probe Negative Negative 06/02/2016 9:33 AM TELEPRINTER INSTALLER [facility] GC Amplified Probe Negative Negative 06/02/2016 9:33 AM TELEPRINTER INSTALLER [facility] Urine URINE / Unknown 06/01/2016 3 :33 PM TELEPRINTER INSTALLER 06/01/2016 3:50 PM TELEPRINTER INSTALLER Narrative [facility] - 06/02/2016 9:33 AM TELEPRINTER INSTALLER This test was developed and its performance characteristics determined by the [facility], [facility]. Female urine specimens tested by the [facility] have not been cleared or approved by the U.S. Food and Drug Administration (FDA). The laboratory is regulated under the Clinical Laboratory Improvement Amendments (CLIA) as qualified to perform high-complexity testing. This test is used for clinical purposes. It should not be regarded as investigational or for research. Results based on detection/no detection of ribosomal RNA by amplified method. Kristen Monroy SALESPERSON FLOWERS-CLAY DRY PRESS OPERATOR LAB - MICROBIO LOGY ORDERABLES [facility] [address] [place] [address], [facility] [phone] from Last 3 Months or Most Recently Relevant to Health Maintenance Care Teams Systems Administration Analyst Relationship Specialty Start Date End Date Jordon Chiang MD Resident Student Resident 01/21/16
--- OUTSIDE RECORDS SUMMARY | 2024-08-03 14:37 | XMS_ITS | Encounter Summary ---
Author Organization [facility] Address [address] [facility] [place] [address] Care Team Providers Care Can Tester Name Role Phone Justin Andrews MD Primary Care Provider [phone] Jordon Chiang MD Unavailable Reason for Visit * Reason Onset Date Comments Question 12/09/2015 Encounter Details Date Type Department Care Team (Late st Contact Info) Description 12/09/2015 Telephone [facility] - [address] [place] [address] Hunter Oscar MD [facility] [place] [address] Question Social History Tobacco Use [...] home against moms wishes. 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 Should she have sooner appt? documented in this encounter Plan of Treatment Not on file documented as of this encounter Visit Diagnoses Not on filedocumented in this encounter Care Teams Can Tester Relationship Specialty Start Date End Date Justin Andrews MD [facility] [place] [address] PCP - General Pediatrics 12/07/15 04/10/16 Jordon Chiang MD [address] [place] [address] Resident Student Resident 01/21/16 documented as of this encounter
--- OUTSIDE RECORDS SUMMARY | 2024-08-03 14:37 | XMS_ITS | Patient Health Summary ---
Author Organization [facility] Address [address] [place] [address] Care Team Providers Care Furniture Repairer Name Role Phone Jordon Chiang MD Unavailable Note from [facility],non-owned Affiliates and Associated Physician Practices is amultiple site organization consisting of ambulatory clinics and hospital sitesin [place], [place] and [place]. This disclosure is being madepursuant to the Care Everywhere program and may not contain all information available regarding this patient. Last updated 18.[facility] Allergies No known active allergies* Augmentin(Urticaria) -Medium [...] g by mouth once daily * Lactobacillus-Inulin ([facility]) capsule(Started 06/01/2016) Take 1 [...] Comments Blood Pressure 108/68 07/20/2016 2:15 PM RN MEDICAL INPATIENT SERVICES Pulse 72 04/11/2016 1:00 PM CDT Temperature 37.2 C (99 F) 12/23/2015 2:48 PM CDT Respiratory Rate 18 04/11/2016 1:00 PM CDT Oxygen Saturation 98% 12/23/2015 2:48 PM CDT RA Inhaled Oxygen Concentration - - Weight 65.4 kg (144 lb 2.9 oz) 07/20/2016 2:15 P M RN MEDICAL INPATIENT SERVICES Height 172 cm (5' 7.72 ) 07/20/2016 2:15 PM RN MEDICAL INPATIENT SERVICES Body Mass Index 22.11 07/20/2016 2:15 PM RN MEDICAL INPATIENT SERVICES Procedures * URINE MICROSCOPIC ONLY(Performed 07/20/2016) Performed [...] (ABNORMAL) URINALYSIS ROUTINE AUTO (07/20/2016 3:24 PM RN MEDICAL INPATIENT SERVICES) Only the most recent of7 resultswithin the time period is included. Color UA Yellow Straw, Yellow, Dark Yellow 07/20/2016 4:03 PM RN MEDICAL INPATIENT SERVICES [facility] Clarity UA Slt Cloudy 07/20/2016 4:03 PM RN MEDICAL INPATIENT SERVICES [facility] Specific [place] UA 1.020 1.005 - 1.030 07/20/2016 4:03 PM [facility] pH UA 6.5 5.0 - 8.0 pH 07/20/2016 4:03 PM [facility] Protein UA Negative Negative 07/20/2016 4:03 PM [facility] Blood UA Negative Negative 07/20/2016 4:03 PM [facility] Leukocyte UA 1+(A) Negative 07/20/2016 4:03 PM [facility] Nitrite UA Negative Negative 07/20/2016 4:03 PM [facility] Glucose UA Negative Negative 07/20/2016 4:03 PM [facility] Ketone UA Negative Negative 07/20/2016 4:03 PM [facility] Bilirubin UA Negative Negative 07/20/2016 4:03 PM [facility] Urobilinogen UA 0.2 0.1 - 1.0 EU/dL 07/20/2016 4:03 PM [facility] Urine URINE SPECIMEN OBTAINED BY CLEAN CATCH PROCEDURE / Unknown 07/20/2016 3:24 PM RN MEDICAL INPATIENT SERVICES 07/20/2016 3:37 PM [facility] Val Colunga MD LAB - URINALYSIS ORD ERABLES Performing Organization Address City/State/[facility] Co de Phone Number [facility] [address] [place] [phone] * (ABNORMAL) URINALYSIS MICROSCOPIC ONLY (07/20/2016 3:24 PM RN MEDICAL INPATIENT SERVICES) Only the most recent of5 resultswithin the time period is included. RBC UA 0-2 0-2, 2-5 # /hpf 07/20/2016 4:09 PM [facility] WBC UA 5-10(A) 0-2, 2-5 # /hpf 07/20/2016 4:09 PM [facility] Bacteria UA 3+(A) None Seen, Trace 07/20/2016 4:09 PM [facility] Epithelial Cell UA 5-10(A) 0-2, 2-5 # /hpf 07/20/2016 4:09 PM [facility] Urine URINE SPECIMEN OBTAINED BY CLEAN CATCH PROCEDURE / Unknown 07/20/2016 3:24 PM RN MEDICAL INPATIENT SERVICES 07/20/2016 3:37 PM RN MEDICAL INPATIENT SERVICES Val Colunga MD LAB - URINALYSIS ORD ERABLES Performing Organization Address City/[facility]/ZIP Co de Phone Number [facility] [address] [place] [address] * CALCIUM/CREAT RATIO URINE RANDOM PANEL (07/20/2016 3:24 PM RN MEDICAL INPATIENT SERVICES) Only the most recent of3 resultswithin the time period is included. Calcium Urine 15.25 mg/dL 07/20/2016 4:38 PM [facility] Creatinine Urine 96.32 mg/dL 07/20/2016 4:38 PM [facility] Calcium/Creatin ine Ratio Urine 0.16 07/20/2016 4:38 PM [facility] Urine URINE SPECIMEN OBTAINED BY CLEAN CATCH PROCEDURE / Unknown 07/20/2016 3:24 PM RN MEDICAL INPATIENT SERVICES 07/20/2016 3:37 PM RN MEDICAL INPATIENT SERVICES Narrative [facility] - 07/20/2016 4:38 PM RN MEDICAL INPATIENT SERVICES Normal <0.16 Borderline 0.16-0.20 Abnormal >0.20 Val Colunga MD LAB - URINE CHEMISTR Y ORDERABLES Performing Organization Address [facility] Co de Phone Number [facility] [address] [place] [address] * PROTEIN CREATININE RATIO URINE RANDOM PNL (07/20/2016 3:24 PM RN MEDICAL INPATIENT SERVICES) Protein Urine <6.8 <12 mg/dL 07/20/2016 4:38 PM [facility] Creatinine Urine 96.32 mg/dL 07/20/2016 4:38 PM [facility] Protein/Creatin ine Ratio Urine <0.07 <0.10 07/20/2016 4:38 PM [facility] Urine URINE SPECIMEN OBTAINED BY CLEAN CATCH PROCEDURE / Unknown 07/20/2016 3:24 PM RN MEDICAL INPATIENT SERVICES 07/20/2016 3:37 PM [facility] Val Colunga MD LAB - URINE CHEMISTR Y ORDERABLES Performing Organization Address City/[facility]/ZIP Co de Phone Number [facility] [address] [place] [address] * UROFLOWMETRY (06/03/2016 4:23 PM RN MEDICAL INPATIENT SERVICES) Narrative 06/03/2016 4:23 PM RN MEDICAL INPATIENT SERVICES Ordered by an unspecified provider. Scanned Document PROCEDURE ORDERAB LES * EMG ACC (06/03/2016 2:07 PM RN MEDICAL INPATIENT SERVICES) Aba Abarca MD - 06/03/2016 2:07 PM RN MEDICAL INPATIENT SERVICES Aba Childers MD 06/03/2016 2:07 PM EMG [...] No changes to current regimen Kristen Monroy APRN-[facility] PROCEDURE O RDERABLES * UROFLOWMETRY ACC (06/03/2016 2:07 PM RN MEDICAL INPATIENT SERVICES) Aba Abarca MD - 06/03/2016 2:07 PM RN MEDICAL INPATIENT SERVICES Aba Childers MD 06/03/2016 2:07 PM EMG [...] No changes to current regimen Kristen Monroy APRN-INTERNAL COMMUNICATIONS INTERN PROCEDURE O RDERABLES * US BLADDER RESIDUAL ACC (06/03/2016 2:07 PM RN MEDICAL INPATIENT SERVICES) Aba Abarca MD - 06/03/2016 2:07 PM RN MEDICAL INPATIENT SERVICES Aba Childers MD 06/03/2016 2:07 PM EMG [...] No changes to current regimen Kristen Monroy APRN-INTERNAL COMMUNICATIONS INTERN PROCEDURE O RDERABLES * HIV-1 HIV-2 ANTIBODY + HIV P24 AG PANEL (06/01/2016 3:44 PM RN MEDICAL INPATIENT SERVICES) Pathologist [facility] HIV1/2 Ab + P24 Ag Non Reactive Non Reactive 06/01/2016 5:21 PM RN MEDICAL INPATIENT SERVICES [facility] Blood BLOOD SPECIMEN / Unknown Lab Venipuncture / Unknown 06/01/2016 3:44 PM RN MEDICAL INPATIENT SERVICES 06/01/2016 4:06 PM RN MEDICAL INPATIENT SERVICES Narrative [facility] - 06/01/2016 5:21 PM RN MEDICAL INPATIENT SERVICES No Laboratory evidence of HIV infection. Kristen Monroy APRN-INTERNAL COMMUNICATIONS INTERN LAB - CHEMISTR Y ORDERABLES [facility] [address] [place] [address] * RPR (06/01/2016 3:44 PM RN MEDICAL INPATIENT SERVICES) Pathologist [facility] RPR Non Reactive Non Reactive 06/02/2016 10:12 AM RN MEDICAL INPATIENT SERVICES [facility] Blood BLOOD SPECIMEN / Unknown Lab Venipuncture / Unknown 06/01/2016 3:44 PM RN MEDICAL INPATIENT SERVICES 06/01/2016 4:06 PM RN MEDICAL INPATIENT SERVICES Kristen Monroy RUBY ON RAILS DEVELOPER-[facility] LAB - CHEMISTR Y ORDERABLES [facility] [address] [place] [address] * CHLAMYDIA + GC AMPLIFIED PROBE (06/01/2016 3:33 PM RN MEDICAL INPATIENT SERVICES) Chlamydia Amplified Probe Negative Negative 06/02/2016 9:33 AM RN MEDICAL INPATIENT SERVICES [facility] GC Amplified Probe Negative Negative 06/02/2016 9:33 AM RN MEDICAL INPATIENT SERVICES [facility] Urine URINE / Unknown 06/01/2016 3 :33 PM RN MEDICAL INPATIENT SERVICES 06/01/2016 3:50 PM RN MEDICAL INPATIENT SERVICES Narrative [facility] - 06/02/2016 9:33 AM RN MEDICAL INPATIENT SERVICES This test was developed and its performance characteristics determined by the [facility], [facility]. Female urine specimens tested by the [facility] have not been cleared or approved by the U.S. Food and Drug Administration (FDA). The laboratory is regulated under the Clinical Laboratory Improvement Amendments (CLIA) as qualified to perform high-complexity testing. This test is used for clinical purposes. It should not be regarded as investigational or for research. Results based on detection/no detection of ribosomal RNA by amplified method. Kristen Monroy APRN-INTERNAL COMMUNICATIONS INTERN LAB - MICROBIO LOGY ORDERABLES [facility] [address] [place], [place] [address], [facility] [phone] * (ABNORMAL) URINALYSIS MICROSCOPIC ONLY W/REFLEX CULTURE (04/11/2016 2:10 PM CDT) Only the most recent of2 resultswithin the time period is included. RBC UA 0-2 0-2, 2-5 # /hpf 04/11/2016 3:12 PM CDT [facility] WBC UA 5-10(A) 0-2, 2-5 # /hpf 04/11/2016 3:12 PM CDT [facility] Bacteria UA Trace None Seen, Trace 04/11/2016 3:12 PM CDT [facility] Epithelial Cell UA 5-10(A) 0-2, 2-5 # /hpf 04/11/2016 3:12 PM CDT [facility] Mucus UA 2+ 04/11/2016 3:12 PM CDT [facility] Reflex Status Culture to follow 04/11/2016 3:12 PM T [facility] Urine URINE SPECIMEN OBTAINED BY CLEAN CATCH PROCEDURE / Unknown 04/11/2016 2:10 PM CDT 04/11/2016 2:22 PM CDT Aba Childers MD LAB - URINALYSIS ORD ERABLES [facility] [address] [place] [address] * (ABNORMAL) URINALYSIS ROUTINE W/REFLEX TO CULTURE (04/11/2016 2:10 PM CDT) Only the most recent of2 resultswithin the time period is included. Color UA Yellow Straw, Yellow, Dark Yellow 04/11/2016 3:10 PM CDT [facility] Clarity UA Clear 04/11/2016 3:10 PM T [facility] Specific [place] UA 1.025 1.005 - 1.030 04/11/2016 3:10 PM T [facility] pH UA 7.0 5.0 - 8.0 pH 04/11/2016 3:10 PM CDT [facility] Protein UA Negative Negative 04/11/2016 3:10 PM T [facility] Blood UA Negative Negative 04/11/2016 3:10 PM T [facility] Leukocyte UA Trace(A) Negative 04/11/2016 3:10 PM T [facility] Nitrite UA Negative Negative 04/11/2016 3:10 PM T [facility] Glucose UA Negative Negative 04/11/2016 3:10 PM T [facility] Ketone UA Negative Negative 04/11/2016 3:10 PM T [facility] Bilirubin UA Negative Negative 04/11/2016 3:10 PM T [facility] Urobilinogen UA 0.2 0.1 - 1.0 EU/dL 04/11/2016 3:10 PM T [facility] Reflex Status Culture to follow 04/11/2016 3:10 PM T [facility] Urine URINE SPECIMEN OBTAINED BY CLEAN CATCH PROCEDURE / Unknown 04/11/2016 2:10 PM CDT 04/11/2016 2:22 PM CDT Aba Childers MD LAB - URINALYSIS ORD ERABLES [facility] [address] [place] [address] * CULTURE URINE (04/11/2016 2:10 PM CDT) Only the most recent of6 resultswithin the time period is included. Culture No Growth (<1,000 CFU/mL) EZEQUIEL 04/12/2016 2:11 PM CDT [facility] Urine URINE SPECIMEN OBTAINED BY CLEAN CATCH PROCEDURE / Unknown 04/11/2016 2:10 PM CDT 04/11/2016 2:22 PM CDT Aba Childers MD LAB - MICROBIOLOGY O RDERABLES Performing Organization Address City/[facility]/ZIP Co de Phone Number [facility] [address] [place] [address], [facility] [phone] * (ABNORMAL) HCG URINE QUALITATIVE - POCT (IP) BEAKER (12/23/2015 3:38 PM CDT) Only the most recent of4 resultswithin the time period is included. HCG Qual Urine Positive(A ) Negative [facility] QC Verified Yes Yes [facility] PO [facility] TESTING Urine specimen (specimen) URINE / Unknown 12/23/2015 3:38 PM CDT Kalie Mosley MD LAB - POINT OF CARE ORDERABLES Performing Organization Address [facility] Co de Phone Number [facility] [address] [place] [phone], [facility] [phone] * CALPROTECTIN FECAL (12/09/2015 4:54 PM CDT) Calprotectin Fecal 26 0 - 120 ug/g 12/16/2015 4:11 PM CDT [facility] ([facility]) Comment: Concentration Interpretation Follow-Up <16 - 50 ug/g Normal None >50 -120 ug/g Borderline Re-evaluate in 4-6 weeks >120 ug/g Abnormal Repeat as clinically indicated Stool specimen (specimen) STOOL SPECIMEN / Unknown 12/09/2015 4:54 PM CDT 12/09/2015 5:17 PM CDT Narrative [facility] ([facility]) - 12/16/2015 4:11 PM CDT Performed at: - [address] [id number] Java Swing Developer: Arun Day MD, Phone: [phone] Patti Grande MD LAB - BODY FLUID ORD ERABLES Performing Organization Address City/[facility]/ZIP Co de Phone Number [facility] ([facility]) [address] [place] [address] * CULTURE STOOL+ E COLI SHIGA-LIKE TOXIN (12/09/2015 4:53 PM CDT) Pathologist [facility] Culture No growth Salmonella, Shigella, Campylobacter , E. coli 0157:h7 or Yersinia EZEQUIEL 12/13/2015 3:03 PM CDT [facility] Culture Negative E. coli Shiga-like toxin (NM) EZEQUIEL 12/13/2015 3:03 PM CDT [facility] Stool STOOL SPECIMEN / Unknown 12/09/2015 4:53 PM CDT 12/09/2015 6:56 PM CDT Patti Grande MD LAB - MICROBIOLOGY O RDERABLES Performing Organization Address [facility] Co de Phone Number [facility] [address] [place] [address], [facility] [phone] * C-REACTIVE PROTEIN (12/07/2015 4:47 PM CDT) Only the most recent of2 resultswithin the time period is included. Pathologist [facility] C-Reactive Protein <0.20 <=0.50 mg/dL 12/07/2015 5:58 PM CDT [facility] Blood BLOOD SPECIMEN / Unknown 12/07/2015 4:47 PM CDT 12/07/2015 5:35 PM CDT Rika Swift MD LAB - CHEMISTRY ORD ERABLES [facility] [address] [place] [address] * SED RATE WESTERGREN (12/07/2015 4:47 PM CDT) Only the most recent of2 resultswithin the time period is included. Erythrocyte Sedimentation Rate Westergren 7 0 - 12 mm/hr 12/07/2015 5:41 PM CDT [facility] Blood BLOOD SPECIMEN / Unknown 12/07/2015 4:47 PM CDT 12/07/2015 5:20 PM CDT Rika Swift MD LAB - HEMATOLOGY OR DERABLES [facility] [address] [place] [address] * (ABNORMAL) CBC W AUTO DIFFERENTIAL (12/07/2015 4:47 PM CDT) Only the most recent of3 resultswithin the time period is included. WBC 6.8 4.5 - 11.0 x10E9/L 12/07/2015 5:02 PM T [facility] WBC Corrected x10E9/L 12/07/2015 5:02 PM T [facility] RBC 4.69 4.10 - 5.10 x10E12/L 12/07/2015 5:02 PM T [facility] Hemoglobin 13.5 12.0 - 16.0 gm/dL 12/07/2015 5:02 PM T [facility] Hematocrit 38.1 36.0 - 47.0 % 12/07/2015 5:02 PM T [facility] MCV 81.2 78.0 - 98.0 fl 12/07/2015 5:02 PM T [facility] MCH 28.8 25.0 - 35.0 pg 12/07/2015 5:02 PM T [facility] MCHC 35.4 31.0 - 37.0 gm/dL 12/07/2015 5:02 PM [facility] Platelet Count 226 100 - 400 x10E9/L 12/07/2015 5:02 PM T [facility] RDW-CV 12.5 11.5 - 14.0 % 12/07/2015 5:02 PM T [facility] MPV 10.9(H) 6.0 - 9.5 fl 12/07/2015 5:02 PM CDT [facility] Neutrophils % 61.0 31.0 - 78.0 % 12/07/2015 5:02 PM CDT [facility] Lymphocytes % 28.4 13.0 - 54.0 % 12/07/2015 5:02 PM CDT [facility] Monocytes % 7.7 4.0 - 13.0 % 12/07/2015 5:02 PM CDT [facility] Eosinophils % 2.0 0.0 - 8.0 % 12/07/2015 5:02 PM CDT [facility] Basophils % 0.6 % 12/07/2015 5:02 PM CDT [facility] Immature Granulocytes 0.3 % 12/07/2015 5:02 PM CDT [facility] Neutrophil Absolute 4.17 x10E9/L 12/07/2015 5:02 PM CDT [facility] Lymphocytes Absolute 1.94 x10E9/L 12/07/2015 5:02 PM CDT [facility] Monocytes Absolute 0.53 x10E9/L 12/07/2015 5:02 PM CDT [facility] Eosinophils Absolute 0.14 x10E9/L 12/07/2015 5:02 PM CDT [facility] Basophils Absolute 0.04 x10E9/L 12/07/2015 5:02 PM CDT [facility] Immature Granulocytes Absolute 0.02 x10E9/L 12/07/2015 5:02 PM CDT [facility] nRBC Auto 0 /100 WBC 12/07/2015 5:02 PM CDT [facility] Blood BLOOD SPECIMEN / Unknown Lab Venipuncture / Unknown 12/07/2015 4:47 PM CDT 12/07/2015 4:55 PM CDT Rika Swift MD LAB - HEMATOLOGY OR DERABLES [facility] [address] [place] [address] * (ABNORMAL) COMPREHENSIVE METABOLIC PANEL (12/07/2015 4:47 PM CDT) Only the most recent of3 resultswithin the time period is included. [facility] Glucose 91 70 - 105 mg/dL 12/07/2015 5:13 PM [facility] Sodium 139 136 - 145 mmol/L 12/07/2015 5:13 PM [facility] Potassium 3.7 3.5 - 5.1 mmol/L 12/07/2015 5:13 PM [facility] Chloride 108(H) 98 - 107 mmol/L 12/07/2015 5:13 PM [facility] CO2 23 20 - 28 mmol/L 12/07/2015 5:13 PM [facility] Calcium 8.84(L) 9.08 - 10.48 mg/dL 12/07/2015 5:13 PM [facility] Anion Gap 8 5 - 20 mmol/L 12/07/2015 5:13 PM [facility] BUN 12.3 5.3 - 18.7 mg/dL 12/07/2015 5:13 PM [facility] Creatinine 0.70 0.61 - 1.07 mg/dL 12/07/2015 5:13 PM [facility] Alkaline Phosphatase 55(L) 100 - 390 U/L 12/07/2015 5:13 PM [facility] ALT 9 8 - 65 U/L 12/07/2015 5:13 PM [facility] AST 13 3 - 35 U/L 12/07/2015 5:13 PM [facility] Protein Total 7.2 6.3 - 8.2 gm/dL 12/07/2015 5:13 PM [facility] Albumin 4.3 3.3 - 4.9 gm/dL 12/07/2015 5:13 PM [facility] Bilirubin Total 0.7 0.3 - 1.2 mg/dL 12/07/2015 5:13 PM [facility] eGFR by MDRD >60 mL/min/1. 73m2 12/07/2015 5:13 PM [facility] Comment: eGFR calculations are not performed for children under 18 years old. eGFR by MDRD >60 mL/min/1. 73m2 12/07/2015 5:13 PM [facility] Comment: eGFR calculations are not performed for children under 18 years old. Blood BLOOD SPECIMEN / Unknown Lab Venipuncture / Unknown 12/07/2015 4:47 PM CDT 12/07/2015 4:58 PM CDT Rika Swift MD LAB - CHEMISTRY ORD ERABLES Performing Organization Address [facility]/ZIP Co de Phone Number [facility] [address] [place] [address] * (ABNORMAL) OCCULT BLOOD FECES (12/07/2015 4:33 PM CDT) Only the most recent of2 resultswithin the time period is included. Occult Blood Positive(A ) Negative 12/07/2015 5:15 PM CDT [facility] Stool STOOL SPECIMEN / Unknown 12/07/2015 4:33 PM CDT 12/07/2015 5:12 PM CDT Rika Swift MD LAB - BODY FLUID OR DERABLES Performing Organization Address [facility] de Phone Number [facility] [place] [address] * LAB RESULTS ORDER (07/23/2015 11:06 AM RN MEDICAL INPATIENT SERVICES) Narrative 07/23/2015 11:06 AM RN MEDICAL INPATIENT SERVICES Ordered by an unspecified provider. Scanned Document LAB - THERAPEUTIC DR TELLEZ MONITORING ORDERABLES * US KIDNEY AND BLADDER (07/20/2015 9:18 AM RN MEDICAL INPATIENT SERVICES) Anatomical Region Laterality Modality Ultrasound 07/20/2015 9:26 AM RN MEDICAL INPATIENT SERVICES Impressions 07/20/2015 10:29 AM RN MEDICAL INPATIENT SERVICES Normal renal sonogram. Dictated by Twin Vo MD (Newspaper Or Periodical Editor). I, Bisi Aguilera, have personally reviewed the images and I agree with this report. Narrative 07/20/2015 10:29 AM RN MEDICAL INPATIENT SERVICES EXAMINATION: Renal sonogram HISTORY: 15-year-old female with [...] renal sonogram. Dictated by Twin Vo MD (Newspaper Or Periodical Editor). I, Bisi Aguilera, have personally reviewed the images and I agree with this report. Kristen Monroy [employer] DEVELOPER-[facility] ORDERABLES * VERNON BLOOD SCREEN W/REFLEX TITER (12/15/2014 3:44 PM CDT) [facility]ERNON Negative Negative 12/16/2014 8:54 AM CDT [facility] Blood BLOOD SPECIMEN / Unknown Lab Venipuncture / Unknown 12/15/2014 3:44 PM CDT 12/15/2014 4:24 PM CDT Maverick Ko MD LAB - CHEMISTRY [place] [facility] Organization Address City/State/ZIP Co de Phone Number [facility] [address] [place] [address] * SS-B ANTIBODY (12/15/2014 3:44 PM CDT) SS-B Antibody 0 0 - 40 AU/mL 12/17/2014 8:52 PM CDT [facility] [employer] [facility]) Comment: INTERPRETIVE INFORMATION: SSB ([place]) (GIFTY) Ab, [...] Ko MD LAB - CHEMISTRY [place] [facility] [employer] [facility]) [address] * (ABNORMAL) VITAMIN D 25-HYDROXY (12/15/2014 3:44 PM CDT) Vitamin D, 25 Hydroxy 29.26(L) 30 - 100 ng/mL 12/15/2014 6:48 PM CDT [facility] Blood BLOOD SPECIMEN / Unknown Lab Venipuncture / Unknown 12/15/2014 3:44 PM CDT 12/15/2014 4:24 PM CDT Narrative [facility] - 12/15/2014 6:48 PM CDT Vitamin D Status: Deficiency <20 ng/mL Insufficiency 20-30 ng/mL Sufficiency 30-100 ng/mL Toxicity >100 ng/mL Maverick Ko MD LAB - CHEMISTRY [facility] [place] [facility] [address] [place] [address] * TSH (12/15/2014 3:44 PM CDT) TSH 3.07 0.35 - 4.95 uIU/mL 12/15/2014 6:07 PM CDT [facility] Blood BLOOD SPECIMEN / Unknown Lab Venipuncture / Unknown 12/15/2014 3:44 PM CDT 12/15/2014 4:28 PM CDT Maverick Ko MD LAB - CHEMISTRY [facility] [place] [facility] [place] [address] * CARDIAC HOLTER MONITOR ORDER (08/14/2014 9:36 PM RN MEDICAL INPATIENT SERVICES) Narrative 08/14/2014 9:36 PM RN MEDICAL INPATIENT SERVICES Ordered by an unspecified provider. Scanned Document CARDIAC SERVICES ORD ERABLES * ECHO CONSULT - PEDIATRIC (07/24/2014 1:53 PM RN MEDICAL INPATIENT SERVICES) 07/24/2014 1:53 PM RN MEDICAL INPATIENT SERVICES Narrative [facility] - 07/24/2014 3:01 PM RN MEDICAL INPATIENT [place] [phone] Fax Pediatric Transthoracic Report Pat.Name: CLEMENTINA CAMACHO Pat.ID: [id number] .Date: 07/24/2014 Exam Time: 1:53:00 PM Study Type:Pediatric TTE Height: 172.1cm Weight: 61.3kg BSA: 1.73 m2 Age: 1 2000,14Y Sex: FEMALE BP: 120/68 Sonogrphr: CARMELLA Thomas Pat. Stat.:Outpatient Room: Echo Lab 3 Reason for Study:Chest pain History / Clinical:chest pain Procedures:Doppler Color Flow, Doppler Echo Complete, TTE 2D w/o Contrast Visit ID: [id number] SUMMARY: Normal intracardiac anatomy and normal biventricular [...] Procedure Note Reading, No - 07/24/2014 [address] [place] [id number] Fax Pediatric Transthoracic Report Pat.Name: CLEMENTINA CAMACHO Pat.ID: [id number] .Date: 07/24/2014 Exam Time: 1:53:00 PM Study Type:Pediatric TTE Height: 172.1cm Weight: 61.3kg BSA: 1.73 m2 Age: 1 2000,14Y Sex: FEMALE BP: 120/68 Sonogrphr: CARMELLA Thomas Pat. Stat.:Outpatient Room: Echo Lab 3 Reason for Study:Chest pain History / Clinical:chest pain Procedures:Doppler Color Flow, Doppler Echo Complete, TTE 2D w/o Contrast Visit ID: [id number] SUMMARY: Normal intracardiac anatomy and normal biventricular [...] Rico MD ECHO ORDERABLES Performing Organization Address [facility] Co de Phone Number [facility] [address] [place] [address] * EKG 15-LEAD (05/11/2014 10:33 PM RN MEDICAL INPATIENT SERVICES) Ventricular Rate 105 BPM CG MUSE Atrial Rate 105 BPM CG MUSE P-R Interval 186 ms CG MUSE QRS Duration ms 86 ms CG MUSE Q-T Interval ms 334 ms CG MUSE QTC Calculation (Bezet) 442 ms CG MUSE Calculated P Sayre 64 degrees CG MUSE Calculated R Sayre 73 degrees CG MUSE Calculated T Sayre 45 degrees CG MUSE Interpretation EKG * Pediatric ECG Analysis * Normal sinus rhythm Normal ECG Confirmed by MIKEY YOUNG ([id number]) on 05/28/2014 1:52:59 PM CG MUSE 05/11/2014 10:3 3 PM RN MEDICAL INPATIENT SERVICES 05/28/2014 1:52 PM RN MEDICAL INPATIENT SERVICES Mary Lou Cooper DO ECG ORDERABLES Performing Organization Address [facility] Co de Phone Number CG MUSE * XR ELBOW 2 VW RIGHT (05/06/2013 9:36 AM RN MEDICAL INPATIENT SERVICES) Anatomical Region Laterality Modality Upper Extremity Radiographic Chantale ging 05/06/2013 9:42 AM RN MEDICAL INPATIENT SERVICES Impressions 05/06/2013 9:42 AM RN MEDICAL INPATIENT SERVICES No fracture. Narrative 05/06/2013 9:42 AM RN MEDICAL INPATIENT SERVICES 2 views of the right elbow performed [...] fracture. Raymundo Jason MD DIAGNOSTIC IMAGING O [facility] Care Teams Furniture Repairer Relationship Specialty Start Date End Date Jordon Chiang MD Resident Student Resident 01/21/16
--- OUTSIDE RECORDS SUMMARY | 2024-08-03 14:37 | XMS_ITS | Encounter Summary ---
Author Organization [facility] Address [address] [place] [address] Care Team Providers Care Assembly Person Name Role Phone Marcie Pollard BALL ASSEMBLER Primary Care Provider + Encounter Details Date Type Department Care Team (Late st Contact Info) Description 05/16/2022 [employer] Message Enc [facility] Medical [facility] Family and Sports Medicine - [place] [address] [place] [address] [facility] Schedule Appointment: Annual Physical Due Social [...] Rule Out 05/12/2024 05/13/2024 05/13/2024 12:35 AM CLINICAL ASSOCIATE Assessment Noted Time PHQ-9 Depression Total Score: 2 05/03/20 21 3:37 PM CLINICAL ASSOCIATE documented as of this encounter Care Teams Assembly Person Relationship Specialty Start Date End Date Marcie Pollard BALL ASSEMBLER [address] [place] [address] PCP - General Nurse Practitioner Family 04/26/21 documented as of this encounter
--- OUTSIDE RECORDS SUMMARY | 2024-08-03 14:37 | XMS_ITS | Clinical Summary ---
Author Organization [facility] Address [address] [place] [address] Care Team Providers Care Self Defense Instructor Name Role Phone Marcie Pollard NP Primary Care Provider [phone] Allergies Active Allergy Reactions Criticality Noted Date [...] on file Legal Sex Female 11:05 PM MEDIA STRATEGIST Gender Identity Not on file Sexual Orientation [...] 36.2 C (97.2 F) 07/28/2023 10:38 AM MEDIA STRATEGIST Respiratory Rate 13 07/28/2023 2:40 PM MEDIA STRATEGIST Oxygen Saturation 96% 02/16/2024 9:25 AM CDT Inhaled Oxygen Concentration - - Weight 94.8 kg (209 lb) 02/16/2024 9:25 AM CDT Height 172.7 cm (5' 8 ) 02/16/2024 9:25 AM CDT Body Mass Index 31.78 02/16/2024 9:25 AM CDT Plan of Treatment Upcoming Encounters Date Type Department Care Team (Late st Contact Info) Description 08/05/2024 10:15 AM MEDIA STRATEGIST Hospital Encounter [facility] OP Cardiac Testing [address] [place] [address] Yuriy Mark MD [address] [address] Health Maintenance Due Date Last Done Comments [...] to complete this topic Insurance AENA SIG [id number] [facility] [id number] OR [facility] Care Teams Self Defense Instructor Relationship Specialty Start Date End Date Marcie Pollard NP [address] [place] [address] PCP - General Cafe Cook 02/16/24
--- OUTSIDE RECORDS SUMMARY | 2024-08-03 14:37 | XMS_ITS | Referral Summary ---
Author Organization [facility] Address [address] [place] [address] Care Team Providers Care Sports Commentator Name Role Phone Marcie Pollard NP Primary Care Provider [phone] Allergies Active Allergy Reactions Criticality Noted Date [...] on file Legal Sex Female 11:05 PM CLOTHING SALES ASSISTANT Gender Identity Not on file Sexual Orientation Not on file Last Filed Vital Signs Vital Sign Reading Time Taken Comments Blood Pressure 102/62 02/16/2024 9:25 AM CDT Pulse 102 02/16/2024 9:25 AM CDT Temperature 36.2 C (97.2 F) 07/28/2023 10:38 AM CLOTHING SALES ASSISTANT Respiratory Rate 13 07/28/2023 2:40 PM CLOTHING SALES ASSISTANT Oxygen Saturation 96% 02/16/2024 9:25 AM CDT Inhaled Oxygen Concentration - - Weight 94.8 kg (209 lb) 02/16/2024 9:25 AM CDT Height 172.7 cm (5' 8 ) 02/16/2024 9:25 AM CDT Body Mass Index 31.78 02/16/2024 9:25 AM CDT Plan of Treatment Upcoming Encounters Date Type Department Care Team (Late st Contact Info) Description 08/05/2024 10:15 AM CLOTHING SALES ASSISTANT Hospital Encounter [facility] OP Cardiac Testing [address] [place] [address] Yuriy Mark MD [address] [facility] [address] [address] Insurance [facility] [id number] [facility] Care Teams Sports Commentator Relationship Specialty Start Date End Date Marcie Pollard NP [address] [place] [address] PCP - General Infusion Therapy Nurse 02/16/24
--- OUTSIDE RECORDS SUMMARY | 2024-08-03 14:38 | XMS_ITS | Clinical Summary ---
Author Organization [facility] Address [facility] [place] [address] Care Team Providers Care Scaleman Name Role Phone Marcie Pollard NP Primary Care Provider [phone] Allergies No known active allergies Medications busPIRone [...] Team Description 05/13/2024 Travel 05/12/2024 10:44 PM STRAW HAT PRESSER - 05/13/2024 1:34 AM [facility] Emergency [facility] [place] [address] Janet Otero PA Vaginal Pain Discharge Disposition: Home or Self Care (Routine Discharge) 05/12/2024 Travel 05/05/2024 1:14 AM STRAW HAT PRESSER - 05/05/2024 4:24 AM [facility] Emergency [facility] [place] [address] Beau Cox MD,PHD Indigestion Discharge Disposition: Home [...] Comments Blood Pressure 106/57 05/13/2024 1:13 AM STRAW HAT PRESSER Pulse 77 05/13/2024 1:13 AM STRAW HAT PRESSER Temperature 36.8 C (98.2 F) 05/12/2024 11:08 PM STRAW HAT PRESSER Respiratory Rate 16 05/13/2024 1:13 AM STRAW HAT PRESSER Oxygen Saturation 98% 05/13/2024 1:13 AM STRAW HAT PRESSER Inhaled Oxygen Concentration - - Weight 95.3 kg (210 lb) 05/12/2024 10:32 PM STRAW HAT PRESSER Height 175.3 cm (5' 9 ) 05/12/2024 10:32 PM STRAW HAT PRESSER Body Mass Index 31.01 05/12/2024 10:32 PM STRAW HAT PRESSER Plan of Treatment Health Maintenance Due Date Last Done Comments Annual Physical 2001 Hepatitis C 2016 Cervical Cancer Screening Pap Smear (Age 21 to 29) Every 3 Years 06/01/2019 06/01/2016 Cervical Cancer Screening 06/01/2019 COVID-19 Vaccine ( season) 2024 Influenza Adult (#1) 2024 PHQ-2 (Physician [place]) 06/19/2024 DTaP, Tdap and Td Vaccines (8 [...] A & B STAT 05/13/2024 12:04 AM STRAW HAT PRESSER CORONAVIRUS (COVID 19) STAT 12:04 AM STRAW HAT PRESSER URINE BACTERIA CULTURE Routine 4 11:00 PM STRAW HAT PRESSER HC URINALYSIS AUTO W/O MICRO STAT 05/12/2024 11:00 PM STRAW HAT PRESSER LACTIC ACID W REFLEX (SEPSIS) STAT 05/12/2024 11:00 PM STRAW HAT PRESSER COMPREHENSIVE METABOLIC PANEL STAT 05/12/2024 11:00 PM STRAW HAT PRESSER CBC W/DIFF AUTOMATED STAT 05/12/2024 11:00 PM STRAW HAT PRESSER POCT URINE (BACK OFFICE) STAT 05/12/2024 10:57 PM STRAW HAT PRESSER TROPONIN, QUANT STAT 05/05/2024 3:33 AM STRAW HAT PRESSER XR CHEST PORTABLE STAT 05/05/2024 2:0 7 AM STRAW HAT PRESSER ECG 12-LEAD Routine 05/05/2024 1:59 AM STRAW HAT PRESSER D-DIMER, QUANTITATIVE STAT 05/05/2024 1:25 AM STRAW HAT PRESSER CHORIONIC GONADOTROPIN HCG QL STAT 05/05/2024 1:25 AM STRAW HAT PRESSER C-REACTIVE PROTEIN STAT 05/05/2024 1: 25 AM STRAW HAT PRESSER TROPONIN, QUANT STAT 05/05/2024 1:25 AM STRAW HAT PRESSER COMPREHENSIVE METABOLIC PANEL STAT 05/05/2024 1:25 AM STRAW HAT PRESSER CBC W/DIFF AUTOMATED STAT 05/05/2024 1:25 AM STRAW HAT PRESSER from Last 3 Months Results * CORONAVIRUS (COVID 19) (05/13/2024 12:04 AM STRAW HAT PRESSER) CORONAVIRUS SARS COV 2 RNA NEGATIVE NEGATIVE 05/13/2024 12:35 AM STRAW HAT PRESSER [facility] Comment: NEGATIVE RESULTS DO [...] SARS-COV-2. SPECIMEN TYPE NASAL 05/13/2024 12:18 AM STRAW HAT PRESSER [facility] NASAL STRUCTURE / Unknown 05/13/2024 12:04 AM STRAW HAT PRESSER Janet FENG MICROBIOLOGY - GENERAL ORDERAB LES Final Result Performing Organization Address City/[facility]/ZIP Co de Phone Number [facility] [address] [place] [address], [place] [phone] * INFLUENZA A & B (05/13/2024 12:04 AM STRAW HAT PRESSER) SPECIMEN TYPE NASOPHARYNGEAL SWAB 05/13/2024 12:19 AM STRAW HAT PRESSER [facility] INFLUENZA A NEGATIVE NEGATIVE 05/13/2024 12:41 AM STRAW HAT PRESSER [facility] INFLUENZA B NEGATIVE NEGATIVE 05/13/2024 12:41 AM STRAW HAT PRESSER [facility] Comment: Interpretation: Negative for Influenza [...] NASAL STRUCTURE / Unknown 05/13/2024 12:04 AM STRAW HAT PRESSER Janet FENG MICROBIOLOGY - GENERAL ORDERAB LES Final Result [facility] [address] [place], [place] [address], [place] [address], [place] [phone] * LACTIC ACID W REFLEX (SEPSIS) (05/12/2024 11:00 PM STRAW HAT PRESSER) LACTIC ACID VENOUS 0.9 0.4 - 2.0 MMOL/L 05/12/2024 11:34 PM STRAW HAT PRESSER [facility] 05/12/2024 11:0 0 PM STRAW HAT PRESSER us Janet FENG LABORATORY Final Result [facility] [address] [place] [address], [place] [phone] * (ABNORMAL) URINALYSIS (05/12/2024 11:00 PM STRAW HAT PRESSER) Pathologist [facility] SPECIMEN TYPE URINE CLEAN CATCH 05/12/2024 10:57 PM STRAW HAT PRESSER [facility] COLOR (U) COLORLESS 05/12/2024 11:14 PM STRAW HAT PRESSER [facility] TRANSPARENCY CLEAR 05/12/2024 11:14 PM [facility] SPECIFIC GRAVITY (U) 1.007 1.001 - 1.030 05/12/2024 11:14 PM STRAW HAT PRESSER [facility] U PH 7.0 5.0 - 9.0 05/12/2024 11:14 PM [facility] LEUKOCYTES (U) 75(A) NEGATIVE 05/12/2024 11:14 PM [facility] NITRITES NEGATIVE NEGATIVE 05/12/2024 11:14 PM [facility] PROTEIN RANDOM (U) NEGATIVE <30 MG/DL 05/12/2024 11:14 PM [facility] GLUCOSE (U) NORMAL NORMAL MG/DL 05/12/2024 11:14 PM [facility] KETONES MG/DL (U) NEGATIVE NEGATIVE MG/DL 05/12/2024 11:14 PM [facility] UROBILINOGEN NORMAL NORMAL MG/DL 05/12/2024 11:14 PM [facility] BILIRUBIN (U) NEGATIVE NEGATIVE MG/DL 05/12/2024 11:14 PM [facility] BLOOD (U) NEGATIVE NEGATIVE 05/12/2024 11:14 PM [facility] WBC/HPF 2 <6 /HPF 05/12/2024 11:14 PM [facility] RBC/HPF 1 <6 /HPF 05/12/2024 11:14 PM [facility] BACTERIA (U) RARE(A) NONE /HPF 05/12/2024 11:14 PM [facility] SQUAMOUS EPITHELIALS RARE /HPF 05/12/2024 11:14 PM [facility] URINE SPECIMEN OBTAINED BY CLEAN CATCH PROCEDURE / Unknown 05/12/2024 11:00 PM STRAW HAT PRESSER Janet FENG URINE ORDERABLES Final Result [facility] [address] [place] [address], * CULTURE URINE (05/12/2024 11:00 PM STRAW HAT PRESSER) SPEC DESCRIPTION URINE CLEAN CATCH 05/12/2024 11:36 PM STRAW HAT PRESSER [facility] SPECIAL REQUESTS NO SPECIAL REQUEST 05/12/2024 11:36 PM [facility] CULTURE RESULT POLYMICROBIAL GROWTH CONSISTENT WITH NORMAL GENITAL FOSTER. SUSCEPTIBILITIES NOT ROUTINELY PERFORMED. 05/14/2024 8:26 AM STRAW HAT PRESSER [facility] URINE SPECIMEN OBTAINED BY CLEAN CATCH PROCEDURE / Unknown 05/12/2024 11:00 PM STRAW HAT PRESSER 05/13/2024 12:11 AM STRAW HAT PRESSER us Janet FENG MICROBIOLOGY - GENERAL ORDERAB LES Final Result [facility] [address] [place] [address], * (ABNORMAL) COMPREHENSIVE METABOLIC PANEL (05/12/2024 11:00 PM STRAW HAT PRESSER) Only the most recent of2 resultswithin the time period is included. GLUCOSE 107(H) 70 - 99 MG/DL 05/12/2024 11:33 PM STRAW HAT PRESSER [facility] BUN 10 7 - 18 MG/DL 05/12/2024 11:33 PM STRAW HAT PRESSER [facility] CREATININE S/P/B 0.66 0.55 - 1.02 MG/DL 05/12/2024 11:33 PM STRAW HAT PRESSER [facility] SODIUM S/P/B 138 136 - 145 MMOL/L 05/12/2024 11:33 PM [facility] POTASSIUM S/P/B 3.5 3.5 - 5.1 MMOL/L 05/12/2024 11:33 PM STRAW HAT PRESSER [facility] CHLORIDE S/P/B 108 97 - 115 MMOL/L 05/12/2024 11:33 PM STRAW HAT PRESSER [facility] CO2 22.7 21 - 32 MMOL/L 05/12/2024 11:33 PM STRAW HAT PRESSER [facility] CALCIUM S/P/B 9.0 8.5 - 10.1 MG/DL 05/12/2024 11:33 PM STRAW HAT PRESSER [facility] BILIRUBIN TOTAL S/P/B 0.5 0.2 - 1.2 MG/DL 05/12/2024 11:33 PM STRAW HAT PRESSER [facility] Comment: THIS ASSAY IS NOT RECOMMENDED FOR PATIENTS UNDERGOING TREATMENT WITH ELTROMBOPAG DUE TO THE POTENTIAL FOR FALSELY ELEVATED RESULTS. TOTAL PROTEIN S/P/B 7.5 6.4 - 8.2 G/DL 05/12/2024 11:33 PM [facility] ALBUMIN S/P/B 3.4 3.4 - 5.0 G/DL 05/12/2024 11:33 PM [facility] AST 9(L) 15 - 37 U/L 05/12/2024 11:33 PM [facility] ALT 18 14 - 55 U/L 05/12/2024 11:33 PM [facility] ALKALINE PHOSPHATASE S/P/B 96 50 - 136 U/L 05/12/2024 11:33 PM [facility] ANION GAP 7.3 2 - 10 MMOL/L 05/12/2024 11:33 PM [facility] BUN CREATININE RATIO 15.2 6 - 26 05/12/2024 11:33 PM [facility] A/G RATIO 0.8(L) 1.0 - 2.0 RATIO 05/12/2024 11:33 PM [facility] GFR ESTIMATE >90 >90 ML/MIN/1.7 3 M2 05/12/2024 11:33 PM [facility] Comment: NOTE: eGFR is not calculated for patients <18 years of age or gender unknown. This is an estimated GFR calculation using the new CKD EPI creatinine equation without race and so does not require a correction factor for race. This estimated GFR should not be used for calculating drug doses. 05/12/2024 11:0 0 PM STRAW HAT PRESSER us Janet FENG LABORATORY Final Result [facility] [address] [place] [address], [place] [phone] * (ABNORMAL) CBC W/DIFF AUTOMATED (05/12/2024 11:00 PM STRAW HAT PRESSER) Only the most recent of2 resultswithin the time period is included. WBC 11.76(H) 4.5 - 11.0 x10'3/uL 05/12/2024 11:09 PM [facility] RBC 4.92 4.20 - 5.40 x10'6/uL 05/12/2024 11:09 PM [facility] HGB 13.5 12.0 - 16.0 G/DL 05/12/2024 11:09 PM [facility] HCT 39.9 38.0 - 48.0 % 05/12/2024 11:09 PM [facility] MCV 81.1 81.0 - 99.0 FL 05/12/2024 11:09 PM [facility] MCH 27.4 27.0 - 31.0 PG 05/12/2024 11:09 PM [facility] MCHC 33.8 32.0 - 36.0 G/DL 05/12/2024 11:09 PM [facility] RDW 12.9 11.5 - 14.5 % 05/12/2024 11:09 PM [facility] PLT 270 130 - 400 x10'3/uL 05/12/2024 11:09 PM [facility] MPV 10.5 9.3 - 12.2 FL 05/12/2024 11:09 PM [facility] DIFFERENTIAL TYPE AUTOMATED DIFFERENTIAL 05/12/2024 11:09 PM [facility] NEUTROPHILS % 75.2 % 05/12/2024 11:09 PM [facility] LYMPHOCYTES % 13.9 % 05/12/2024 11:09 PM STRAW HAT PRESSER [facility] MONOCYTES % 8.2 % 05/12/2024 11:09 PM STRAW HAT PRESSER [facility] EOSINOPHILS 2.0 % 05/12/2024 11:09 PM STRAW HAT PRESSER [facility] BASOPHILS 0.4 % 05/12/2024 11:09 PM STRAW HAT PRESSER [facility] IMMATURE GRANS % 0.3 % 05/12/20 11:09 PM STRAW HAT PRESSER [facility] ABS. NEUTROPHILS 8.85(H) 1.80 - 7.70 x10'3/uL 05/12/2024 11:09 PM STRAW HAT PRESSER [facility] ABS. LYMPHOCYTES 1.64 1.00 - 4.80 x10'3/uL 05/12/2024 11:09 PM STRAW HAT PRESSER [facility] ABS. MONOCYTES 0.96(H) 0.24 - 0.86 x10'3/uL 05/12/2024 11:09 PM STRAW HAT PRESSER [facility] ABS. EOSINOPHILS 0.23 0.04 - 0.36 x10'3/uL 05/12/2024 11:09 PM STRAW HAT PRESSER [facility] ABS. BASOPHILS 0.05 0.01 - 0.08 x10'3/uL 05/12/2024 11:09 PM STRAW HAT PRESSER [facility] ABS. IMMATURE GRANULOCYTES 0.03 0.00 - 0.49 x10'3/uL 05/12/2024 11:09 PM STRAW HAT PRESSER [facility] 05/12/2024 11:0 0 PM STRAW HAT PRESSER Janet FENG LABORATORY Final Result [facility] [address] [place] [address], * POCT urine (05/12/2024 10:57 PM STRAW HAT PRESSER) URINE HCG TEST NEGATIVE Internal Control: VALID Janet FENG POINT OF CARE TEST ORDERABLES Final Result * TROPONIN, QUANT (05/05/2024 3:33 AM STRAW HAT PRESSER) Only the most recent of2 resultswithin the time period is included. TROPONIN I HIGH SENSITIVITY 3 <54 ng/L 05/05/2024 4:02 AM STRAW HAT PRESSER [facility] Comment: HIGH DOSES OF BIOTIN, TROPONIN-SPECIFIC AUTOANTIBODIES, AND ANTIBODY THERAPY CONTAINING HAMA MAY INTERFERE WITH THIS TEST RESULT. CORRELATION TO CLINICAL HISTORY AND PRESENTATION RECOMMENDED. 05/05/2024 3:33 AM STRAW HAT PRESSER Beau Cox MD,PHD LABORATORY Final Resu lt [facility] [address] [place] [address], [place] [phone] * XR CHEST PORTABLE (05/05/2024 2:07 AM STRAW HAT PRESSER) Anatomical Region Laterality Modality Chest Radiographic Chantale ging 05/05/2024 2:11 AM STRAW HAT PRESSER Impressions 05/05/2024 2:11 AM STRAW HAT PRESSER IMPRESSION: No definite acute radiographic abnormalities identified in the chest. Referred By: Interpreted By: Jeffrey Chavez MD, 05/05/2024 2:11 AM Narrative 05/05/2024 2:11 AM STRAW HAT PRESSER [facility] [address] [place], [place] [address] Examination: Chest radiograph Exam time: 05/05/2024 2:00 AM Clinical history: Chest pain Comparison: None Technique: One view of the chest obtained. Findings: Normal heart size and pulmonary vascularity. No consolidation, pleural effusions, or definite pneumothorax. Osseous structures reveal no definite acute findings. Procedure Note Jeffrey Chavez MD - 05/05/[address] [address] Examination: Chest radiograph Exam time: 05/05/2024 2:00 AM Clinical history: Chest pain Comparison: None Technique: One view of the chest obtained. Findings: Normal heart size and pulmonary vascularity. No consolidation,pleural effusions, or definite pneumothorax. Osseous structures reveal nodefinite acute findings. IMPRESSION: No definite acute radiographic abnormalities identified in the chest. Referred By: Interpreted By: Jeffrey Chavez MD, 05/05/2024 2:11 AM Janet Otero [place] GENERAL IMAGING Final Result * ECG 12 lead (05/05/2024 1:59 AM STRAW HAT PRESSER) 05/05/2024 1:59 AM STRAW HAT PRESSER Narrative [facility] ([facility]) RAD - 05/05/2024 4:56 PM STRAW HAT PRESSER [address] Test Date: 2024-05-05 Pat Name: CLEMENTINA BARNARDJIMBO Department: 41 Room: Gender: Female [place] Custodian: [id number] : 2000 Requested By: JANET OTERO Order Number: [id number] Reading MD: Carito Locke Measurements Intervals [place] Rate: 73 P: 48 [place]: 182 QRS: 61 QRSD: 87 T: 49 QT: 389 QTc: 430 Interpretive Statements SINUS RHYTHM Compared to ECG 05/11/2014 21:06:34 Sinus tachycardia no longer present W HAT PRESSER Procedure Note Carito Locke MD - 05/05/[address] Test Date: 2024-05-05 Pat Name: CLEMENTINA CAMACHO Department: 41 Room: Gender: Female [place] Custodian: [id number] : 2000 Requested By: JANET OTERO Order Number: [id number] Reading MD: Carito Locke Measurements Intervals [place] Rate: 73 P: 48 [place]: 182 QRS: 61 QRSD: 87 T: 49 QT: 389 QTc: 430 Interpretive Statements SINUS RHYTHM Compared to ECG 05/11/2014 21:06:34 Sinus tachycardia no longer present W HAT PRESSER us Janet Otero PA ECG ORDERABLES Final Result Performing Organization Address City/[facility] Co de Phone Number [facility] ([facility]) RAD * D-DIMER, QUANTITATIVE (05/05/2024 1:25 AM STRAW HAT PRESSER) Pathologist [facility] D-DIMER 418 0 - 500 ng{FEU}/mL 05/05/2024 1:52 AM STRAW HAT PRESSER [facility] Comment: D-Dimer values less than [...] additional false negative findings. 05/05/2024 1:25 AM STRAW HAT PRESSER us Beau Cox MD,PHD LABORATORY Final Resu lt [facility] [address] [place] [address], [place] [phone] * Qualitative HCG (05/05/2024 1:25 AM STRAW HAT PRESSER) PREG SCREEN-SERUM NEGATIVE 05/05/2024 1:51 AM STRAW HAT PRESSER [facility] 05/05/2024 1:25 AM STRAW HAT PRESSER Janet FENG LABORATORY Final Result [facility] [address] [place] [id number], [place] [phone] * (ABNORMAL) C-REACTIVE PROTEIN (05/05/2024 1:25 AM STRAW HAT PRESSER) [facility] C-REACTIVE PROTEIN 1.00(H) <0.29 mg/dL 05/05/2024 2:03 AM STRAW HAT PRESSER [facility] 05/05/2024 1:25 AM STRAW HAT PRESSER [facility] Final Result Performing Organization Address City/[facility]/ZIP Co de Phone Number [address] [address], [place] [phone] from Last 3 Months Insurance [employer] Advance Directives Documents on File Type Date Recorded Patient Ham Stringer Expl anation Legal Documents 07/20/2022 4:58 PM PB IB [facility] [employer] Care Teams Scaleman Relationship Specialty Start Date End Date Marcie Pollard, COMPUTER FORENSICS TECHNICIAN [address] [place] [address] PCP - General Nurse Practitioner Family 04/26/21
--- OUTSIDE RECORDS SUMMARY | 2024-08-03 14:38 | XMS_ITS | Clinical Summary ---
Author Organization [facility] Address [address] [place] [address] Phone Care Team Providers Care Apricot Washer Name Role Phone Unavailable Primary Care Provider [...]
--- NOTE | 2024-08-03 14:42 | ED_ITS ---
HPI - General Adult General Chief complaint: Vaginal Bleeding Stated complaint: vag bleed, LMP 06/18/24 Time Seen by Provider: 08/03/24 14:30 History of Present Illness HPI narrative: 24-year-old female presented to the emergency department for evaluation for lower abdominal pain and vaginal bleeding. Patient did have a positive test on 07/19. Patient then had a full 7 day menstrual cycle. Patient then had follow-up with OB Gyne and did have a beta hCG of 360. Patient states that today she did have worsening vaginal bleeding again and does have lower abdominal cramping. Patient does have follow-up with OB Gyne on Monday. Related Data Allergies Allergy/AdvReac Type Severity Reaction Status Date / Time No Known Allergies Allergy Verified 08/03/24 14:47 Review of Systems 2 Review of Systems: All systems reviewed & are unremarkable except as noted in HPI and below PMFSH Past Medical History Medical History Anxiety Asthma seasonal Depression Miscarriage Recurrent UTI Surgical History Surgical History History of elective X 2 Family History Family History Father Asthma Heart disease Hypertension Mother Asthma Sibling Asthma VSD (ventricular septal defect) Epilepsy Social History Social History Smoking status: Never smoker Substance use: never Gender identity (if verbalized by the patient): Female Spiritual care concerns: No Exam 2 Narrative: APPEARANCE: Well appearing, no pain, no distress, well-nourished. HEAD: normocephalic, atraumatic. EYES: PERRLA/EOMI, conjunctivae clear. NOSE: Normal no drainage EARS:TMS clear with good light reflex. THROAT: Pharynx clear, no exudate. NECK: Supple. No adenopathy, no masses. RESPIRATORY: Airway patent, respirations nonlabored. Clear to auscultation bilaterally, no rales, rhonchi, wheezing. CARDIOVASCULAR: Regular rate and rhythm without murmurs rubs or gallops. ABDOMINAL: Soft, nontender, nondistended, normal bowel sounds MUSCULOSKELETAL: Moves all extremities. Strength/ROM intact, No edema, No calf tenderness. NEURO: Alert. Cranial nerves II through XII intact. Good gait. Good coordination SKIN: Warm, dry. Normal Color Course Vital Signs Vital signs: Vital Signs Temperature 98.7 F 08/03/24 12:49 Pulse Rate 95 08/03/24 12:49 Respiratory Rate 18 08/03/24 12:49 Blood Pressure 139/64 08/03/24 12:49 Pulse Oximetry 100 08/03/24 12:49 Oxygen Delivery Room Air 08/03/24 12:49 Temperature 98.7 F 08/03/24 12:49 Pulse Rate 95 08/03/24 12:49 Respiratory Rate 18 08/03/24 12:49 Blood Pressure 139/64 08/03/24 12:49 Pulse Oximetry 100 08/03/24 12:49 Oxygen Delivery Room Air 08/03/24 12:49 Medical Decision Making MDM Narrative Medical decision making narrative: 24-year-old female presents emergency department for evaluation for vaginal bleeding patient's blood type is O positive. Ultrasound showed no definitive gestational sac but with patient's hormone level of 419 this could just be an early . Patient does have follow-up scheduled with Dr. milton garcia on monday Differential Diagnosis Differential Diagnosis: Miscarriage, vaginal bleeding, ectopic Vital Signs Vital Signs: Vital Signs Temperature 98.7 F 08/03/24 12:49 Pulse Rate 95 08/03/24 12:49 Respiratory Rate 18 08/03/24 12:49 Blood Pressure 139/64 08/03/24 12:49 Pulse Oximetry 100 08/03/24 12:49 Oxygen Delivery Room Air 08/03/24 12:49 Temperature 98.7 F 08/03/24 12:49 Pulse Rate 95 08/03/24 12:49 Respiratory Rate 18 08/03/24 12:49 Blood Pressure 139/64 08/03/24 12:49 Pulse Oximetry 100 08/03/24 12:49 Oxygen Delivery Room Air 08/03/24 12:49 Lab Data Lab results reviewed: Yes I reviewed the patient's lab results. 08/03/24 14:49 08/03/24 14:49 Labs: Lab Results 08/03/24 Range/Units 14:49 WBC 8.3 (4.5-10.0) K/mm3 RBC 5.06 (4.2-5.4) M/mm3 Hgb 14.0 D (12.0-15.0) g/dL Hct 42.0 (37.0-47.0) % MCV 83.0 (80-100) fl MCH 27.7 (26-34) pg MCHC 33.3 (32-36) g/dl RDW 13.1 (11.5-14.5) % Plt Count 299 (150-375) k/mm3 MPV 10.1 (7.4-10.4) fl Immature Gran % (Auto) 0.2 (0-0.5) % Neut % (Auto) 69.1 (45.5-73.1) % Lymph % (Auto) 21.9 (18.3-44.2) % [place] % (Auto) 6.2 (2.6-8.5) % Eos % (Auto) 1.9 (0-4.4) % Baso % (Auto) 0.7 (0.2-1.2) % Lymph # (Auto) 1.81 (0.9-3.2) K/mm3 [place] # (Auto) 0.5 (0.1-0.6) K/mm3 Eos # (Auto) 0.2 (0-0.3) K/mm3 Baso # (Auto) 0.1 (0.0-0.1) K/mm3 Abs Immat Gran (auto) 0.02 (0.00-0.031) K/mm3 Absolute Neuts (auto) 5.7 (1.3-6.7) K/mm3 Absolute Nucleated RBC 0.000 (0.0-0.012) K/mm3 Nucleated RBC % 0.0 (0.0-0.2) % PT 13.8 (11.1-14.7) Seconds INR 1.0 APTT 30.0 (22.3-36.8) Seconds Sodium 139 (137-145) mmol/L Potassium 3.5 (3.4-5.0) mmol/L Chloride 101 (98-107) mmol/L Carbon Dioxide 25 (22-30) mmol/L Anion Gap 13 H (4-12) mmol/L BUN 10 (7-17) mg/dL Creatinine 0.60 L (0.7-1.0) mg/dL Estim Creat Clear Calc 145 ml/min Estimated GFR > 60 (59 - ) Glucose 111 H (65-110) mg/dL Calcium 9.1 (8.4-10.2) mg/dL Total Bilirubin 0.6 (0.2-1.3) mg/dL AST 25 (14-36) U/L ALT 30 (6-35) U/L Alkaline Phosphatase 88 (38-126) U/L Total Protein 7.0 (6.3-8.2) g/dL Albumin 4.2 (3.5-5.1) g/dL Beta HCG, Quant 419.00 mIU/ML Urine Color Yellow (Yellow) Urine Appearance Clear (Clear) Urine pH 7.5 (5.0-9.0) Ur Specific [place] 1.009 (1.001-1.035) Urine Protein Negative (Negative) mg/dL Urine Glucose (UA) Negative (Negative) mg/dL Urine Ketones Negative (Negative) mg/dL Ur Blood (Man) 2+ H (Negative) Urine Nitrate Negative (Negative) Urine Bilirubin Negative (Negative) Urine Urobilinogen 0.2 (<2.0) mg/dL Add Ur Microanalysis Reviewed Leukocyte Esterase Rfl 2+ H (Negative) AUBREY/UL Urine RBC 0-2 (0-2) /hpf Urine WBC 0-5 (0-3) /hpf Ur Squamous Epith Cells Occasional (Few) /hpf Urine Bacteria Rare /hpf Urine Casts 0-2 Imaging Data Radiologist's impression: Impressions Obstetrics Ultrasound 08/03/24 17:14 IMPRESSION: A gestational sac is typically visible on ultrasound when the quantitative serum beta hCG is between 1500 - 2,000 nabila - international units per milliliter. This is typically approximately 4-5 weeks into a . With a serum beta hCG of less than thousand, the lack of a gestational sac is not abnormal. Findings within the left ovary may represent a dermoid cyst for which HEAD COOK follow-up is recommended. Short-term follow-up is recommended to evaluate the intrauterine gestation once the serum beta hCG increases. Discharge Plan Discharge Clinical Impression: Vaginal bleeding affecting early Patient Disposition: Home, Self-Care Condition: Stable Instructions: Antibiotic Form, Threatened Miscarriage (ED), (ED) Additional Instructions: Your blood type is O-positive. Your beta hCG was 419. Continue to drink plenty of fluids. Tylenol for abdominal cramping. Continue to have close follow-up with OB Gyne. If you have any worsening symptoms then please call or return to the emergency department. Patient Language: Israeli Follow-up/Referrals: PHYSICIAN NOT ON STAFF,NONSTAFF [Primary Care Provider] -
[2024-08-03 14:56] LABS: Basophils Absolute Auto 0.1 K/mm3 (0.0-0.1); Basophils Percent Auto 0.7 % (0.2-1.2); Eosinophils Absolute Auto 0.2 K/mm3 (0-0.3); Eosinophils Percent Auto 1.9 % (0-4.4); Immature Granulocyte Absolute 0.02 K/mm3 (0.00-0.031); Immature Granulocyte Percent A 0.2 % (0-0.5); Lymphocytes Absolute Auto 1.81 K/mm3 (0.9-3.2); Lymphocytes Percent Auto 21.9 % (18.3-44.2); Mean Corpuscular HGB Conc 33.3 g/dl (32-36); Mean Corpuscular Hemoglobin 27.7 pg (26-34); Mean Platelet Volume 10.1 fl (7.4-10.4); Monocytes Absolute Auto 0.5 K/mm3 (0.1-0.6); Monocytes Percent Auto 6.2 % (2.6-8.5); Neutrophils Absolute Auto 5.7 K/mm3 (1.3-6.7); Neutrophils Percent Auto 69.1 % (45.5-73.1); Platelet Count Result 299 k/mm3 (150-375); Red Blood Count 5.06 M/mm3 (4.2-5.4); Red Cell Distribution Width 13.1 % (11.5-14.5); White Blood Count 8.3 K/mm3 (4.5-10.0)
[2024-08-03 15:09] LABS: Add Urine Microscopic? YES; Appearance Urine Clear (Clear); Bacteria Urine Rare /hpf; Bilirubin Urine Negative (Negative); Blood Urine 2+ (Negative); Color Urine Yellow (Yellow); Glucose Urine UA Negative (Negative); Ketones Urine Negative (Negative); Leukocyte Esterase Ur 2+ LEU/UL (Negative); Need Manual Microscopic Reviewed; Nitrate Urine Negative (Negative); Non Pathogenic Casts 0-2; Protein Urine Negative (Negative); RBC Urine 0-2 /hpf (0-2); Specific Grav Ur 1.009 (1.001-1.035); Squamous Epithelial Cell Urine Occasional /hpf (Few); Urobilinogen Urine 0.2 mg/dL (<2.0); WBC Urine 0-5 /hpf (0-3); pH Urine 7.5 (5.0-9.0)
[2024-08-03 15:11] LABS: Alanine Aminotransferase 30 U/L (6-35); Albumin Level 4.2 g/dL (3.5-5.1); Alkaline Phosphatase 88 U/L (38-126); Anion Gap 13 mmol/L (4-12); Aspartate Amino Transferase 25 U/L (14-36); Bilirubin,Total 0.6 mg/dL (0.2-1.3); Blood Urea Nitrogen 10 mg/dL (7-17); Calcium 9.1 mg/dL (8.4-10.2); Carbon Dioxide 25 mmol/L (22-30); Chloride 101 mmol/L (98-107); Estimated CRCL calculation 145 ml/min; Estimated Glomerular Filt Rate > 60; Glucose 111 mg/dL (65-110); Potassium 3.5 mmol/L (3.4-5.0); Sodium 139 mmol/L (137-145)
[2024-08-03 15:20] LABS: Prothrombin Time 13.8 Seconds (11.1-14.7)
== END 2024-08-03 19:09 | disposition home or self-care (01) ==
PROVIDERS: Emergency Provider Emergency Medicine
DX: O20.9 Hemorrhage in early pregnancy, unspecified (principal); O99.511 Diseases of the respiratory system complicating pregnancy, first trimester; J45.909 Unspecified asthma, uncomplicated; Z87.440 Personal history of urinary (tract) infections; Z3A.01 Less than 8 weeks gestation of pregnancy
CPT/HCPCS: 36415; 76801; 76817; 80053; 81001; 84702; 85025; 85610; 85730; 87086; 99284

== ENCOUNTER 2024-08-09 10:25 | Day surgery (SDC) | payer OTHER, SELFPAY ==
[2024-08-08 12:21] VITALS: BMI 31.2
--- NOTE | 2024-08-08 12:27 | PC.NURSE ---
Report to the Outpatient Waiting Room, entrance under the green pavilion located off [facility], at time _1100_ on date _[id number]_. Planned Procedure Time: _1pm_.? Time changes happen often and if your time is changed the preop area will call you the afternoon before. - You and your visitor will be asked to self-screen and do not enter if you have any COVID symptoms. Please call surgeon if you need to reschedule. - A mask is optional within the hospital at this time. Patients may have clear liquids (water, carbonated beverages, clear teas, apple juice) until 3 hours prior to surgery with a maximum of 20 ounces. - No food from midnight until time of surgery and no smoking, or chewing tobacco (or any form of nicotine). No chewing gum, candy or mints. Take only the following medications with a SIP of water on the morning of surgery: ___None___ DO NOT STOP ANY OF YOUR OTHER PRESCRIPTION MEDICATIONS PRIOR TO SURGERY EXCEPT THE FOLLOWING Hold all vitamins and supplements for 3 days per anesthesiologist. Medications to discontinue per physician ___ Date to take last dose Please no make-up, nail taiwanese, hairspray, perfume, deodorant, or body powder the day of surgery.? No jewelry (including any body piercings) or valuables the day of surgery, leave them at home.? Please take a shower or bath the night before, or the morning of, surgery with an antibacterial soap.? Wear comfortable, loose fitting clothing.? - Jewelry must be removed prior to entering the operating room.? Rings and piercings that are not removed may be cut off. - The hospital will not accept responsibility for valuables.? - Please leave all valuables, including medications, at home the day of surgery. If you are going home after surgery, a licensed food mobile driver must drive you home.? - NO public transportation without another adult if you receive anesthesia. - We recommend that an adult stay with you for 24 hours following discharge. - We also recommend that you do not drive, make important decision, drink alcoholic beverages, or take any drugs that were not prescribed by your health care provider for at least 24 hours after your discharge time. Follow any additional instructions given to you from your surgeon. Telephone instructions given to __Janeth__and asked if any additional questions and then verbalized understanding. Patient advised to call surgeon office or pre surgery nurse liaison [phone] if any additional questions.
--- NOTE | 2024-08-08 12:35 | PM.IMHP ---
H&P: HPI History of Present Illness Date/Time: 08/08/24 12:35 Chief Complaint: /complex left cyst Narrative: 24-year-old female with complex cyst and abnormal . Her quantitative HCGs have been smoldering. She has tissue in the uterus and 6 a 7cm ovarian cyst on the left. Will undergo laparoscopic left cystectomy and suction dilatation curettage. Risks and benefits reviewed including but not exclusive aspiration bleeding transfusion, perforation ureters, or other internal need for she received the ACOG handout entitled laparoscopy as well as dilatation curettage. She had all questions answered. She asked to proceed Review of Systems Review of Systems: All systems reviewed & are unremarkable except as noted in HPI and below PMFSH Past Medical History Medical History Miscarriage Depression Anxiety Recurrent UTI Asthma seasonal Surgical History Surgical History History of elective X 2 Family History Family History Father Asthma Heart disease Hypertension Mother Asthma Sibling Asthma VSD (ventricular septal defect) Epilepsy Social History Social History Smoking status: Never smoker Tobacco type: e-cigarettes/vaping Alcohol intake: current Alcohol use details: Stopped drinking over the summer Substance use: never Living arrangements: with family Gender identity (if verbalized by the patient): Female Spiritual care concerns: No Meds Home Medications and Allergies Home Medications ?Medication ?Instructions ?Recorded ?Confirmed ?Type No Home Medications 08/08/24 08/08/24 History Allergies Allergy/AdvReac Type Severity Reaction Status Date / Time No Known Allergies Allergy Verified 08/08/24 12:21 Exam Const: General: cooperative, healthy appearing and comfortable Orientation/consciousness: oriented to person, oriented to place and oriented to time Resp: Effort & Inspection: normal respiratory effort Cardio: Rate: regular rate Rhythm: regular rhythm Heart sounds: S1 normal heart sound present and S2 normal heart sound present GI: Inspection: normal to inspection Auscultation: normal bowel sounds : External Female Exam: normal external appearance Speculum Exam - Vagina: normal appearance of the vagina Speculum Exam - Cervix: normal appearance of the cervix Bimanual exam- vagina & uterus: enlarged Bimanual Exam- Adnexa, other: Adnexal mass present on the left non-tender Assessment and Plan Assessment and plan (1) Incomplete : Code(s): O03.4 - Incomplete spontaneous without complication Status: Acute (2) Complex cyst of left ovary: Code(s): N83.292 - Other ovarian cyst, left side Status: Acute Plan Proceed with laparoscopic left cystectomy and suction dilatation curettage
[2024-08-09] VITALS (8 sets, daily range): BP systolic 96–133; BP diastolic 65–91; PULSE 72–119; RESP 14–20; TEMP 37.1–37.7; O2SAT 100
--- NOTE | 2024-08-09 06:29 | WPDHPUPDATE1 ---
History and Physical Update Update Date/Time: 08/09/24 06:29 History and Physical has been reviewed, including an updated exam of the patient. There are NO changes in the patient's condition. Risks, benefits, and alternatives have been discussed and questions answered. Patient agrees to proceed with procedure.
--- OUTSIDE RECORDS SUMMARY | 2024-08-09 10:59 | XMS_ITS | Clinical Summary ---
Author Organization [facility] Address [address] [place] [address] Phone Care Team Providers Care Firebreak Cutter Name Role Phone Unavailable Primary Care Provider [...]
--- OUTSIDE RECORDS SUMMARY | 2024-08-09 10:59 | XMS_ITS | Clinical Summary ---
Author Organization [facility] Address [address] [place] [address] Care Team Providers Care Silk Screen Cutter Name Role Phone Jordon Chiang MD Unavailable Source Comments [facility],non-owned Affiliates and Associated Physician Practices is amultiple site organization consisting of ambulatory clinics and hospital sitesin [place], [place], [place] and [place]. This disclosure is being madepursuant to the Care Everywhere program and may not contain all information available regarding this patient. Last updated 18.[facility] Allergies No known active allergies Medications * [...] daily 30 Packet 0 12/07/2015 Active Lactobacillus-Inulin ([facility] [employer] [facility]) capsuleIndications:Re current UTI Take 1 Cap [...] defect Brother minna nary artery disease ? MS<65(female) Maternal Grandmother Sudd. <30 Maternal Uncle Anxiety Disorder Mother Bipolar Disorder Mother MS<65(female) Paternal Grandmother Congenital Heart defect Sister vsd Arrhythmia Neg Hx CVA<55(male) Neg Hx CVA<65(female) Neg Hx Cardiomyopathy Neg Hx Heart Surgery Neg Hx Long QT Syndrome Neg Hx MS<55(male) Neg Hx Marfan Syndrome Neg Hx Pacemaker [...] Comments Blood Pressure 108/68 07/20/2016 2:15 PM TRAIN BRAKE OPERATOR Pulse 72 04/11/2016 1:00 PM CDT Temperature 37.2 C (99 F) 12/23/2015 2:48 PM CDT Respiratory Rate 18 04/11/2016 1:00 PM CDT Oxygen Saturation 98% 12/23/2015 2:48 PM CDT RA Inhaled Oxygen Concentration - - Weight 65.4 kg (144 lb 2.9 oz) 07/20/2016 2:15 P M TRAIN BRAKE OPERATOR Height 172 cm (5' 7.72 ) 07/20/2016 2:15 PM TRAIN BRAKE OPERATOR Body Mass Index 22.11 07/20/2016 2:15 PM TRAIN BRAKE OPERATOR Plan of Treatment Health Maintenance Due Date [...] P24 AG PANEL Routine 06/01/2016 3:44 PM TRAIN BRAKE OPERATOR Sexually active at young age CHLAMYDIA + GC AMPLIFIED PROBE Routine 06/01/2016 3:33 PM TRAIN BRAKE OPERATOR Sexually active at young age from Last 3 Months or Most Recently Relevant to Health Maintenance Results * HIV-1 HIV-2 ANTIBODY + HIV P24 AG PANEL (06/01/2016 3:44 PM TRAIN BRAKE OPERATOR) Pathologist [facility] HIV1/2 Ab + P24 Ag Non Reactive Non Reactive 06/01/2016 5:21 PM TRAIN BRAKE OPERATOR [facility] Blood BLOOD SPECIMEN / Unknown Lab Venipuncture / Unknown 06/01/2016 3:44 PM TRAIN BRAKE OPERATOR 06/01/2016 4:06 PM TRAIN BRAKE OPERATOR Narrative [facility] - 06/01/2016 5:21 PM TRAIN BRAKE OPERATOR No Laboratory evidence of HIV infection. Kristen Monroy APRN-OPERATIONS SUPPORT REPRESENTATIVE LAB - CHEMISTR Y ORDERABLES Performing Organization Address City/State/[facility] Co de Phone Number [facility] [address] [place] [id number] * CHLAMYDIA + GC AMPLIFIED PROBE (06/01/2016 3:33 PM TRAIN BRAKE OPERATOR) Chlamydia Amplified Probe Negative Negative 06/02/2016 9:33 AM TRAIN BRAKE OPERATOR [facility] GC Amplified Probe Negative Negative 06/02/2016 9:33 AM [facility] Urine URINE / Unknown 06/01/2016 3 :33 PM TRAIN BRAKE OPERATOR 06/01/2016 3:50 PM TRAIN BRAKE OPERATOR Narrative [facility] - 06/02/2016 9:33 AM TRAIN BRAKE OPERATOR This test was developed and its performance characteristics determined by the [facility], [facility]. Female urine specimens tested by the [facility] have not been cleared or approved by the U.S. Food and Drug Administration (FDA). The laboratory is regulated under the Clinical Laboratory Improvement Amendments (CLIA) as qualified to perform high-complexity testing. This test is used for clinical purposes. It should not be regarded as investigational or for research. Results based on detection/no detection of ribosomal RNA by amplified method. Kristne Monroy WELDER FITTER-OPERATIONS SUPPORT REPRESENTATIVE LAB - MICROBIO LOGY ORDERABLES [facility] [address] [place] [address], [facility] [phone] from Last 3 Months or Most Recently Relevant to Health Maintenance Care Teams Silk Screen Cutter Relationship Specialty Start Date End Date Jordon Chiang MD Resident Student Resident 01/21/16
--- OUTSIDE RECORDS SUMMARY | 2024-08-09 10:59 | XMS_ITS | Patient Health Summary ---
Author Organization [facility] Address [address] [place] [address] Care Team Providers Care Supervisor Order Takers Name Role Phone Jordon Chiang MD Unavailable Note from [facility],non-owned Affiliates and Associated Physician Practices is amultiple site organization consisting of ambulatory clinics and hospital sitesin [place], [place], [place] and [place]. This disclosure is being madepursuant to the Care Everywhere program and may not contain all information available regarding this patient. Last updated 18.[facility] Allergies No known active allergies* [...] g by mouth once daily * Lactobacillus-Inulin ([facility]) capsule(Started 06/01/2016) Take 1 [...] Comments Blood Pressure 108/68 07/20/2016 2:15 PM AUDIT INTERN Pulse 72 04/11/2016 1:00 PM CDT Temperature 37.2 C (99 F) 12/23/2015 2:48 PM CDT Respiratory Rate 18 04/11/2016 1:00 PM CDT Oxygen Saturation 98% 12/23/2015 2:48 PM CDT RA Inhaled Oxygen Concentration - - Weight 65.4 kg (144 lb 2.9 oz) 07/20/2016 2:15 P M AUDIT INTERN Height 172 cm (5' 7.72 ) 07/20/2016 2:15 PM AUDIT INTERN Body Mass Index 22.11 07/20/2016 2:15 PM AUDIT INTERN Procedures * URINE MICROSCOPIC ONLY(Performed 07/20/2016) Performed [...] (ABNORMAL) URINALYSIS ROUTINE AUTO (07/20/2016 3:24 PM AUDIT INTERN) Only the most recent of7 resultswithin the time period is included. Color UA Yellow Straw, Yellow, Dark Yellow 07/20/2016 4:03 PM AUDIT INTERN [facility] Clarity UA Slt Cloudy 07/20/2016 4:03 PM AUDIT INTERN [facility] Specific [place] UA 1.020 1.005 - 1.030 07/20/2016 4:03 PM [facility] pH UA 6.5 5.0 - 8.0 pH 07/20/2016 4:03 PM [facility] Protein UA Negative Negative 07/20/2016 4:03 PM [facility] Blood UA Negative Negative 07/20/2016 4:03 PM [facility] Leukocyte UA 1+(A) Negative 07/20/2016 4:03 PM [facility] Nitrite UA Negative Negative 07/20/2016 4:03 PM [facility] Glucose UA Negative Negative 07/20/2016 4:03 PM [facility] Ketone UA Negative Negative 07/20/2016 4:03 PM [facility] Bilirubin UA Negative Negative 07/20/2016 4:03 PM [facility] Urobilinogen UA 0.2 0.1 - 1.0 EU/dL 07/20/2016 4:03 PM [facility] Urine URINE SPECIMEN OBTAINED BY CLEAN CATCH PROCEDURE / Unknown 07/20/2016 3:24 PM AUDIT INTERN 07/20/2016 3:37 PM [facility] Val Colunga MD LAB - URINALYSIS ORD ERABLES Performing Organization Address City/State/[facility] Co de Phone Number [facility] [address] [place] [phone] * (ABNORMAL) URINALYSIS MICROSCOPIC ONLY (07/20/2016 3:24 PM AUDIT INTERN) Only the most recent of5 resultswithin the time period is included. RBC UA 0-2 0-2, 2-5 # /hpf 07/20/2016 4:09 PM [facility] WBC UA 5-10(A) 0-2, 2-5 # /hpf 07/20/2016 4:09 PM [facility] Bacteria UA 3+(A) None Seen, Trace 07/20/2016 4:09 PM [facility] Epithelial Cell UA 5-10(A) 0-2, 2-5 # /hpf 07/20/2016 4:09 PM [facility] Urine URINE SPECIMEN OBTAINED BY CLEAN CATCH PROCEDURE / Unknown 07/20/2016 3:24 PM AUDIT INTERN 07/20/2016 3:37 PM AUDIT INTERN Val Colunga MD LAB - URINALYSIS ORD ERABLES Performing Organization Address City/[facility]/ZIP Co de Phone Number [facility] [address] [place] [address] * CALCIUM/CREAT RATIO URINE RANDOM PANEL (07/20/2016 3:24 PM AUDIT INTERN) Only the most recent of3 resultswithin the time period is included. Calcium Urine 15.25 mg/dL 07/20/2016 4:38 PM [facility] Creatinine Urine 96.32 mg/dL 07/20/2016 4:38 PM [facility] Calcium/Creatin ine Ratio Urine 0.16 07/20/2016 4:38 PM [facility] Urine URINE SPECIMEN OBTAINED BY CLEAN CATCH PROCEDURE / Unknown 07/20/2016 3:24 PM AUDIT INTERN 07/20/2016 3:37 PM AUDIT INTERN Narrative [facility] - 07/20/2016 4:38 PM AUDIT INTERN Normal <0.16 Borderline 0.16-0.20 Abnormal >0.20 Val Colunga MD LAB - URINE CHEMISTR Y ORDERABLES Performing Organization Address [facility] Co de Phone Number [facility] [address] [place] [address] * PROTEIN CREATININE RATIO URINE RANDOM PNL (07/20/2016 3:24 PM AUDIT INTERN) Protein Urine <6.8 <12 mg/dL 07/20/2016 4:38 PM [facility] Creatinine Urine 96.32 mg/dL 07/20/2016 4:38 PM [facility] Protein/Creatin ine Ratio Urine <0.07 <0.10 07/20/2016 4:38 PM [facility] Urine URINE SPECIMEN OBTAINED BY CLEAN CATCH PROCEDURE / Unknown 07/20/2016 3:24 PM AUDIT INTERN 07/20/2016 3:37 PM AUDIT INTERN Val Colunga MD LAB - URINE CHEMISTR Y ORDERABLES Performing Organization Address City/[facility]/ZIP Co de Phone Number [facility] [address] [place] [address] * UROFLOWMETRY (06/03/2016 4:23 PM AUDIT INTERN) Narrative 06/03/2016 4:23 PM AUDIT INTERN Ordered by an unspecified provider. Scanned Document PROCEDURE ORDERAB LES * EMG ACC (06/03/2016 2:07 PM AUDIT INTERN) Aba Abarca MD - 06/03/2016 2:07 PM AUDIT INTERN Aba Childers MD 06/03/2016 2:07 PM EMG [...] No changes to current regimen Kristen Monroy APRN-[facility] PROCEDURE O RDERABLES * UROFLOWMETRY ACC (06/03/2016 2:07 PM AUDIT INTERN) Aba Abarca MD - 06/03/2016 2:07 PM AUDIT INTERN Aba Childers MD 06/03/2016 2:07 PM EMG [...] No changes to current regimen Kristen Monroy APRN-[employer] PROCEDURE O RDERABLES * US BLADDER RESIDUAL ACC (06/03/2016 2:07 PM AUDIT INTERN) Aba Abarca MD - 06/03/2016 2:07 PM AUDIT INTERN Aba Childers MD 06/03/2016 2:07 PM EMG [...] No changes to current regimen Kristen Monroy APRN-[employer] PROCEDURE O RDERABLES * HIV-1 HIV-2 ANTIBODY + HIV P24 AG PANEL (06/01/2016 3:44 PM AUDIT INTERN) Pathologist [facility] HIV1/2 Ab + P24 Ag Non Reactive Non Reactive 06/01/2016 5:21 PM AUDIT INTERN [facility] Blood BLOOD SPECIMEN / Unknown Lab Venipuncture / Unknown 06/01/2016 3:44 PM AUDIT INTERN 06/01/2016 4:06 PM AUDIT INTERN Narrative [facility] - 06/01/2016 5:21 PM AUDIT INTERN No Laboratory evidence of HIV infection. Kristen Monroy APRN-[employer] LAB - CHEMISTR Y ORDERABLES [facility] [address] [place] [address] * RPR (06/01/2016 3:44 PM AUDIT INTERN) Pathologist [facility] RPR Non Reactive Non Reactive 06/02/2016 10:[address] [facility] Blood BLOOD SPECIMEN / Unknown Lab Venipuncture / Unknown 06/01/2016 3:44 PM AUDIT INTERN 06/01/2016 4:06 PM AUDIT INTERN Kristen Monroy FRENCH TRANSLATOR-[facility] LAB - CHEMISTR Y ORDERABLES [facility] [address] [place] [address] * CHLAMYDIA + GC AMPLIFIED PROBE (06/01/2016 3:33 PM AUDIT INTERN) Chlamydia Amplified Probe Negative Negative 06/02/2016 9:33 AM AUDIT INTERN [facility] GC Amplified Probe Negative Negative 06/02/2016 9:33 AM AUDIT INTERN [facility] Urine URINE / Unknown 06/01/2016 3 :33 PM AUDIT INTERN 06/01/2016 3:50 PM AUDIT INTERN Narrative [facility] - 06/02/2016 9:33 AM AUDIT INTERN This test was developed and its performance characteristics determined by the [facility], [facility]. Female urine specimens tested by the [facility] have not been cleared or approved by the U.S. Food and Drug Administration (FDA). The laboratory is regulated under the Clinical Laboratory Improvement Amendments (CLIA) as qualified to perform high-complexity testing. This test is used for clinical purposes. It should not be regarded as investigational or for research. Results based on detection/no detection of ribosomal RNA by amplified method. Kristen Monroy APRN-[employer] LAB - MICROBIO LOGY ORDERABLES [facility] [address] [place], [place] [address], [facility] [phone] * (ABNORMAL) URINALYSIS MICROSCOPIC ONLY W/REFLEX CULTURE (04/11/2016 2:10 PM CDT) Only the most recent of2 resultswithin the time period is included. RBC UA 0-2 0-2, 2-5 # /hpf 04/11/2016 3:12 PM CDT [facility] WBC UA 5-10(A) 0-2, 2-5 # /hpf 04/11/2016 3:12 PM CDT [facility] Bacteria UA Trace None Seen, Trace 04/11/2016 3:12 PM CDT [facility] Epithelial Cell UA 5-10(A) 0-2, 2-5 # /hpf 04/11/2016 3:12 PM CDT [facility] Mucus UA 2+ 04/11/2016 3:12 PM CDT [facility] Reflex Status Culture to follow 04/11/2016 3:12 PM T [facility] Urine URINE SPECIMEN OBTAINED BY CLEAN CATCH PROCEDURE / Unknown 04/11/2016 2:10 PM CDT 04/11/2016 2:22 PM CDT Aba Childers MD LAB - URINALYSIS ORD ERABLES [facility] [address] [place] [address] * (ABNORMAL) URINALYSIS ROUTINE W/REFLEX TO CULTURE (04/11/2016 2:10 PM CDT) Only the most recent of2 resultswithin the time period is included. Color UA Yellow Straw, Yellow, Dark Yellow 04/11/2016 3:10 PM CDT [facility] Clarity UA Clear 04/11/2016 3:10 PM T [facility] Specific [place] UA 1.025 1.005 - 1.030 04/11/2016 3:10 PM T [facility] pH UA 7.0 5.0 - 8.0 pH 04/11/2016 3:10 PM CDT [facility] Protein UA Negative Negative 04/11/2016 3:10 PM T [facility] Blood UA Negative Negative 04/11/2016 3:10 PM T [facility] Leukocyte UA Trace(A) Negative 04/11/2016 3:10 PM T [facility] Nitrite UA Negative Negative 04/11/2016 3:10 PM T [facility] Glucose UA Negative Negative 04/11/2016 3:10 PM T [facility] Ketone UA Negative Negative 04/11/2016 3:10 PM T [facility] Bilirubin UA Negative Negative 04/11/2016 3:10 PM T [facility] Urobilinogen UA 0.2 0.1 - 1.0 EU/dL 04/11/2016 3:10 PM T [facility] Reflex Status Culture to follow 04/11/2016 3:10 PM T [facility] Urine URINE SPECIMEN OBTAINED BY CLEAN CATCH PROCEDURE / Unknown 04/11/2016 2:10 PM CDT 04/11/2016 2:22 PM CDT Aba Childers MD LAB - URINALYSIS ORD ERABLES [facility] [address] [place] [address] * CULTURE URINE (04/11/2016 2:10 PM CDT) Only the most recent of6 resultswithin the time period is included. Culture No Growth (<1,000 CFU/mL) EZEQUIEL 04/12/2016 2:11 PM CDT [facility] Urine URINE SPECIMEN OBTAINED BY CLEAN CATCH PROCEDURE / Unknown 04/11/2016 2:10 PM CDT 04/11/2016 2:22 PM CDT Aba Childers MD LAB - MICROBIOLOGY O RDERABLES Performing Organization Address City/[facility]/ZIP Co de Phone Number [facility] [address] [place] [address], [facility] [phone] * (ABNORMAL) HCG URINE QUALITATIVE - POCT (IP) BEAKER (12/23/2015 3:38 PM CDT) Only the most recent of4 resultswithin the time period is included. HCG Qual Urine Positive(A ) Negative [facility] QC Verified Yes Yes [facility] PO [facility] TEST[facility] Urine specimen (specimen) URINE / Unknown 12/23/2015 3:38 PM CDT Kalie Mosley MD LAB - POINT OF CARE ORDERABLES Performing Organization Address [facility] Co de Phone Number [facility] [address] [place] [phone], [facility] [phone] * CALPROTECTIN FECAL (12/09/2015 4:54 PM CDT) Calprotectin Fecal 26 0 - 120 ug/g 12/16/2015 4:11 PM CDT [facility] ([facility]) Comment: Concentration Interpretation Follow-Up <16 - 50 ug/g Normal None >50 -120 ug/g Borderline Re-evaluate in 4-6 weeks >120 ug/g Abnormal Repeat as clinically indicated Stool specimen (specimen) STOOL SPECIMEN / Unknown 12/09/2015 4:54 PM CDT 12/09/2015 5:17 PM CDT Narrative [facility] ([facility]) - 12/16/2015 4:11 PM CDT Performed at: - [address] [id number] Supervisor Wet Room: Arun Day MD, Phone: [phone] Patti Grande MD LAB - BODY FLUID ORD ERABLES Performing Organization Address City/[facility]/ZIP Co de Phone Number [facility] ([facility]) [address] [place] [address] * CULTURE STOOL+ E COLI SHIGA-LIKE TOXIN (12/09/2015 4:53 PM CDT) Pathologist [facility] Culture No growth Salmonella, Shigella, Campylobacter , E. coli 0157:h7 or Yersinia EZEQUIEL 12/13/2015 3:03 PM CDT [facility] Culture Negative E. coli Shiga-like toxin (NM) EZEQUIEL 12/13/2015 3:03 PM CDT [facility] Stool STOOL SPECIMEN / Unknown 12/09/2015 4:53 PM CDT 12/09/2015 6:56 PM CDT Patti Grande MD LAB - MICROBIOLOGY O RDERABLES Performing Organization Address [facility] Co de Phone Number [facility] [address] [place] [address], [facility] [phone] * C-REACTIVE PROTEIN (12/07/2015 4:47 PM CDT) Only the most recent of2 resultswithin the time period is included. Pathologist [facility] C-Reactive Protein <0.20 <=0.50 mg/dL 12/07/2015 5:58 PM CDT [facility] Blood BLOOD SPECIMEN / Unknown 12/07/2015 4:47 PM CDT 12/07/2015 5:35 PM CDT Rika Swift MD LAB - CHEMISTRY ORD ERABLES [facility] [address] [place] [address] * SED RATE WESTERGREN (12/07/2015 4:47 PM CDT) Only the most recent of2 resultswithin the time period is included. Erythrocyte Sedimentation Rate Westergren 7 0 - 12 mm/hr 12/07/2015 5:41 PM CDT [facility] Blood BLOOD SPECIMEN / Unknown 12/07/2015 4:47 PM CDT 12/07/2015 5:20 PM CDT Rika Swift MD LAB - HEMATOLOGY OR DERABLES [facility] [address] [place] [address] * (ABNORMAL) CBC W AUTO DIFFERENTIAL (12/07/2015 4:47 PM CDT) Only the most recent of3 resultswithin the time period is included. WBC 6.8 4.5 - 11.0 x10E9/L 12/07/2015 5:02 PM T [facility] WBC Corrected x10E9/L 12/07/2015 5:02 PM T [facility] RBC 4.69 4.10 - 5.10 x10E12/L 12/07/2015 5:02 PM T [facility] Hemoglobin 13.5 12.0 - 16.0 gm/dL 12/07/2015 5:02 PM T [facility] Hematocrit 38.1 36.0 - 47.0 % 12/07/2015 5:02 PM T [facility] MCV 81.2 78.0 - 98.0 fl 12/07/2015 5:02 PM T [facility] MCH 28.8 25.0 - 35.0 pg 12/07/2015 5:02 PM T [facility] MCHC 35.4 31.0 - 37.0 gm/dL 12/07/2015 5:02 PM [facility] Platelet Count 226 100 - 400 x10E9/L 12/07/2015 5:02 PM T [facility] RDW-CV 12.5 11.5 - 14.0 % 12/07/2015 5:02 PM T [facility] MPV 10.9(H) 6.0 - 9.5 fl 12/07/2015 5:02 PM CDT [facility] Neutrophils % 61.0 31.0 - 78.0 % 12/07/2015 5:02 PM CDT [facility] Lymphocytes % 28.4 13.0 - 54.0 % 12/07/2015 5:02 PM CDT [facility] Monocytes % 7.7 4.0 - 13.0 % 12/07/2015 5:02 PM CDT [facility] Eosinophils % 2.0 0.0 - 8.0 % 12/07/2015 5:02 PM CDT [facility] Basophils % 0.6 % 12/07/2015 5:02 PM CDT [facility] Immature Granulocytes 0.3 % 12/07/2015 5:02 PM CDT [facility] Neutrophil Absolute 4.17 x10E9/L 12/07/2015 5:02 PM CDT [facility] Lymphocytes Absolute 1.94 x10E9/L 12/07/2015 5:02 PM CDT [facility] Monocytes Absolute 0.53 x10E9/L 12/07/2015 5:02 PM CDT [facility] Eosinophils Absolute 0.14 x10E9/L 12/07/2015 5:02 PM CDT [facility] Basophils Absolute 0.04 x10E9/L 12/07/2015 5:02 PM CDT [facility] Immature Granulocytes Absolute 0.02 x10E9/L 12/07/2015 5:02 PM CDT [facility] nRBC Auto 0 /100 WBC 12/07/2015 5:02 PM CDT [facility] Blood BLOOD SPECIMEN / Unknown Lab Venipuncture / Unknown 12/07/2015 4:47 PM CDT 12/07/2015 4:55 PM CDT Rika Swift MD LAB - HEMATOLOGY OR DERABLES [facility] [address] [place] [address] * (ABNORMAL) COMPREHENSIVE METABOLIC PANEL (12/07/2015 4:47 PM CDT) Only the most recent of3 resultswithin the time period is included. [facility] Glucose 91 70 - 105 mg/dL 12/07/2015 5:13 PM [facility] Sodium 139 136 - 145 mmol/L 12/07/2015 5:13 PM [facility] Potassium 3.7 3.5 - 5.1 mmol/L 12/07/2015 5:13 PM [facility] Chloride 108(H) 98 - 107 mmol/L 12/07/2015 5:13 PM [facility] CO2 23 20 - 28 mmol/L 12/07/2015 5:13 PM [facility] Calcium 8.84(L) 9.08 - 10.48 mg/dL 12/07/2015 5:13 PM [facility] Anion Gap 8 5 - 20 mmol/L 12/07/2015 5:13 PM [facility] BUN 12.3 5.3 - 18.7 mg/dL 12/07/2015 5:13 PM [facility] Creatinine 0.70 0.61 - 1.07 mg/dL 12/07/2015 5:13 PM [facility] Alkaline Phosphatase 55(L) 100 - 390 U/L 12/07/2015 5:13 PM [facility] ALT 9 8 - 65 U/L 12/07/2015 5:13 PM [facility] AST 13 3 - 35 U/L 12/07/2015 5:13 PM [facility] Protein Total 7.2 6.3 - 8.2 gm/dL 12/07/2015 5:13 PM [facility] Albumin 4.3 3.3 - 4.9 gm/dL 12/07/2015 5:13 PM [facility] Bilirubin Total 0.7 0.3 - 1.2 mg/dL 12/07/2015 5:13 PM [facility] eGFR by MDRD >60 mL/min/1. 73m2 12/07/2015 5:13 PM [facility] Comment: eGFR calculations are not performed for children under 18 years old. eGFR by MDRD >60 mL/min/1. 73m2 12/07/2015 5:13 PM [facility] Comment: eGFR calculations are not performed for children under 18 years old. Blood BLOOD SPECIMEN / Unknown Lab Venipuncture / Unknown 12/07/2015 4:47 PM CDT 12/07/2015 4:58 PM CDT Rika Swift MD LAB - CHEMISTRY ORD ERABLES Performing Organization Address [facility]/ZIP Co de Phone Number [facility] [address] [place] [address] * (ABNORMAL) OCCULT BLOOD FECES (12/07/2015 4:33 PM CDT) Only the most recent of2 resultswithin the time period is included. Occult Blood Positive(A ) Negative 12/07/2015 5:15 PM CDT [facility] Stool STOOL SPECIMEN / Unknown 12/07/2015 4:33 PM CDT 12/07/2015 5:12 PM CDT Rika Swift MD LAB - BODY FLUID OR DERABLES Performing Organization Address [facility] de Phone Number [facility] [place] [address] * LAB RESULTS ORDER (07/23/2015 11:06 AM AUDIT INTERN) Narrative 07/23/2015 11:06 AM AUDIT INTERN Ordered by an unspecified provider. Scanned Document LAB - THERAPEUTIC DR TELLEZ MONITORING ORDERABLES * US KIDNEY AND BLADDER (07/20/2015 9:18 AM AUDIT INTERN) Anatomical Region Laterality Modality Ultrasound 07/20/2015 9:26 AM AUDIT INTERN Impressions 07/20/2015 10:29 AM AUDIT INTERN Normal renal sonogram. Dictated by Twin Vo MD (Petrophysical Engineer). I, Bisi Aguilera, have personally reviewed the images and I agree with this report. Narrative 07/20/2015 10:29 AM AUDIT INTERN EXAMINATION: Renal sonogram HISTORY: 15-year-old female with [...] renal sonogram. Dictated by Twin Vo MD (Petrophysical Engineer). I, Bisi Aguilera, have personally reviewed the images and I agree with this report. Kristen Monroy FRENCH TRANSLATOR-[facility] ORDERABLES * [place] BLOOD SCREEN W/REFLEX TITER (12/15/2014 3:44 PM CDT) [place] Negative Negative 12/16/2014 8:[address] [facility] Blood BLOOD SPECIMEN / Unknown Lab Venipuncture / Unknown 12/15/2014 3:44 PM CDT 12/15/2014 4:24 PM CDT Maverick Ko MD LAB - CHEMISTRY [facility] Organization Address City/State/ZIP Co de Phone Number [facility] [address] [place] [address] * SS-B ANTIBODY (12/15/2014 3:44 PM CDT) SS-B Antibody 0 0 - 40 AU/mL 12/17/2014 8:52 PM CDT [facility] [employer] [facility]) Comment: INTERPRETIVE INFORMATION: SSB ([place]) (GIFTY) [...] Ko MD LAB - CHEMISTRY [facility] [employer] [facility]) [address] * (ABNORMAL) VITAMIN D 25-HYDROXY (12/15/2014 3:44 PM CDT) Vitamin D, 25 Hydroxy 29.26(L) 30 - 100 ng/mL 12/15/2014 6:[address] [facility] Blood BLOOD SPECIMEN / Unknown Lab Venipuncture / Unknown 12/15/2014 3:44 PM CDT 12/15/2014 4:[address] [facility] - 12/15/2014 6:48 PM CDT Vitamin D Status: Deficiency <20 ng/mL Insufficiency 20-30 ng/mL Sufficiency 30-100 ng/mL Toxicity >100 ng/mL Maverick Ko MD LAB - CHEMISTRY [facility] [address] [place] [address] * TSH (12/15/2014 3:44 PM CDT) TSH 3.07 0.35 - 4.95 uIU/mL 12/15/2014 6:07 PM CDT [facility] Blood BLOOD SPECIMEN / Unknown Lab Venipuncture / Unknown 12/15/2014 3:44 PM CDT 12/15/2014 4:28 PM CDT Maverick Ko MD LAB - CHEMISTRY [place] [place] [facility] [place] [address] * CARDIAC HOLTER MONITOR ORDER (08/14/2014 9:36 PM AUDIT INTERN) Narrative 08/14/2014 9:36 PM AUDIT INTERN Ordered by an unspecified provider. Scanned Document CARDIAC SERVICES ORD ERABLES * ECHO CONSULT - PEDIATRIC (07/24/2014 1:53 PM AUDIT INTERN) 07/24/2014 1:53 PM AUDIT INTERN Narrative [facility] - 07/24/2014 3:01 PM [place] [phone] Fax Pediatric Transthoracic Report Pat.Name: CLEMENTINA CAMACHO Pat.ID: [id number] .Date: 07/24/2014 Exam Time: 1:53:00 PM Study Type:Pediatric TTE Height: 172.1cm Weight: 61.3kg BSA: 1.73 m2 Age: 1 2000,14Y Sex: FEMALE BP: 120/68 Sonogrphr: CARMELLA Thomas Pat. Stat.:Outpatient Room: Echo Lab 3 Reason for Study:Chest pain History / Clinical:chest pain Procedures:Doppler Color Flow, Doppler Echo Complete, TTE 2D w/o Contrast Visit ID: [id number] SUMMARY: Normal intracardiac anatomy and normal biventricular [...] Procedure Note Reading, No - 07/24/2014 [address] [place] [id number] Fax Pediatric Transthoracic Report Pat.Name: CLEMENTINA CAMACHO Pat.ID: [id number] .Date: 07/24/2014 Exam Time: 1:53:00 PM Study Type:Pediatric TTE Height: 172.1cm Weight: 61.3kg BSA: 1.73 m2 Age: 1 2000,14Y Sex: FEMALE BP: 120/68 Sonogrphr: CARMELLA Thomas Pat. Stat.:Outpatient Room: Echo Lab 3 Reason for Study:Chest pain History / Clinical:chest pain Procedures:Doppler Color Flow, Doppler Echo Complete, TTE 2D w/o Contrast Visit ID: [id number] SUMMARY: Normal intracardiac anatomy and normal biventricular [...] Rico MD ECHO ORDERABLES Performing Organization Address [facility] Co de Phone Number [facility] [address] [place] [address] * EKG 15-LEAD (05/11/2014 10:33 PM AUDIT INTERN) Ventricular Rate 105 BPM CG MUSE Atrial Rate 105 BPM CG MUSE P-R Interval 186 ms CG MUSE QRS Duration ms 86 ms CG MUSE Q-T Interval ms 334 ms CG MUSE QTC Calculation (Bezet) 442 ms CG MUSE Calculated P Caruthers 64 degrees CG MUSE Calculated R Caruthers 73 degrees CG MUSE Calculated T Caruthers 45 degrees CG MUSE Interpretation EKG * Pediatric ECG Analysis * Normal sinus rhythm Normal ECG Confirmed by MIKEY YOUNG ([id number]) on 05/28/2014 1:52:59 PM CG MUSE 05/11/2014 10:3 3 PM AUDIT INTERN 05/28/2014 1:52 PM AUDIT INTERN Mary Lou Cooper DO ECG ORDERABLES Performing Organization Address [facility] Co de Phone Number CG MUSE * XR ELBOW 2 VW RIGHT (05/06/2013 9:36 AM AUDIT INTERN) Anatomical Region Laterality Modality Upper Extremity Radiographic Chantale ging 05/06/2013 9:42 AM AUDIT INTERN Impressions 05/06/2013 9:42 AM AUDIT INTERN No fracture. Narrative 05/06/2013 9:42 AM AUDIT INTERN 2 views of the right elbow performed [...] fracture. Raymundo Jason MD DIAGNOSTIC IMAGING O [facility] Care Teams Supervisor Order Takers Relationship Specialty Start Date End Date Jordon Chiang MD Resident Student Resident 01/21/16
--- OUTSIDE RECORDS SUMMARY | 2024-08-09 10:59 | XMS_ITS | Clinical Summary ---
Author Organization [facility] Address [address] [place] [address] Care Team Providers Care Nurse Care Manager Name Role Phone Marcie Pollard NP Primary Care Provider [phone] Allergies No known active allergies Medications busPIRone [...] Team Description 05/13/2024 Travel 05/12/2024 10:44 PM SERVICER - 05/13/2024 1:34 AM [facility] Emergency [facility] [place] [address] Janet Shen PA Vaginal Pain Discharge Disposition: Home or Self Care (Routine Discharge) 05/12/2024 Travel from Last 3 Months Immunizations Name [...] Comments Blood Pressure 106/57 05/13/2024 1:13 AM SERVICER Pulse 77 05/13/2024 1:13 AM SERVICER Temperature 36.8 C (98.2 F) 05/12/2024 11:08 PM SERVICER Respiratory Rate 16 05/13/2024 1:13 AM SERVICER Oxygen Saturation 98% 05/13/2024 1:13 AM SERVICER Inhaled Oxygen Concentration - - Weight 95.3 kg (210 lb) 05/12/2024 10:32 PM SERVICER Height 175.3 cm (5' 9 ) 05/12/2024 10:32 PM SERVICER Body Mass Index 31.01 05/12/2024 10:32 PM SERVICER Plan of Treatment Health Maintenance Due Date Last Done Comments Annual Physical 2001 Hepatitis C 2016 Cervical Cancer Screening Pap Smear (Age 21 to 29) Every 3 Years 06/01/2019 06/01/2016 Cervical Cancer Screening 06/01/2019 COVID-19 Vaccine () 02/18/2024 Influenza Adult (#1) 2024 PHQ-2 (Physician Alutiiq) 06/19/2024 DTaP, Tdap and Td Vaccines (8 [...] A & B STAT 05/13/2024 12:04 AM SERVICER CORONAVIRUS (COVID 19) STAT 12:04 AM SERVICER URINE BACTERIA CULTURE Routine 11:00 PM SERVICER HC URINALYSIS AUTO W/O MICRO STAT 05/12/2024 11:00 PM SERVICER LACTIC ACID W REFLEX (SEPSIS) STAT 05/12/2024 11:00 PM SERVICER COMPREHENSIVE METABOLIC PANEL STAT 05/12/2024 11:00 PM SERVICER CBC W/DIFF AUTOMATED STAT 05/12/2024 11:00 PM SERVICER POCT URINE (BACK OFFICE) STAT 05/12/2024 10:57 PM SERVICER from Last 3 Months Results * CORONAVIRUS (COVID 19) (05/13/2024 12:04 AM SERVICER) CORONAVIRUS SARS COV 2 RNA NEGATIVE NEGATIVE 05/13/2024 12:35 AM SERVICER [facility] Comment: NEGATIVE RESULTS DO NOT RULE [...] SARS-COV-2. SPECIMEN TYPE NASAL 05/13/2024 12:18 AM SERVICER [facility] NASAL STRUCTURE / Unknown 05/13/2024 12:04 AM SERVICER Janet FENG MICROBIOLOGY - GENERAL ORDERAB LES Final Result [facility] [address] [place] [address], * INFLUENZA A & B (05/13/2024 12:04 AM SERVICER) SPECIMEN TYPE NASOPHARYNGEAL SWAB 05/13/2024 12:19 AM SERVICER [facility] INFLUENZA A NEGATIVE NEGATIVE 05/13/2024 12:41 AM SERVICER [facility] INFLUENZA B NEGATIVE NEGATIVE 05/13/2024 12:41 AM SERVICER [facility] Comment: Interpretation: Negative for Influenza [...] NASAL STRUCTURE / Unknown 05/13/2024 12:04 AM SERVICER us Janet FENG MICROBIOLOGY - GENERAL ORDERAB LES Final Result Performing Organization Address [facility]/ZIP Co de Phone Number [facility] [address] [place] [address], [place] [phone] * LACTIC ACID W REFLEX (SEPSIS) (05/12/2024 11:00 PM SERVICER) LACTIC ACID VENOUS 0.9 0.4 - 2.0 MMOL/L 05/12/2024 11:34 PM SERVICER [facility] 05/12/2024 11:0 0 PM SERVICER us Janet FENG LABORATORY Final Result Performing Organization Address [facility] Co de Phone Number [facility] [address] [place] [address], [place] [phone] * (ABNORMAL) URINALYSIS (05/12/2024 11:00 PM SERVICER) SPECIMEN TYPE URINE CLEAN CATCH 05/12/2024 10:57 PM SERVICER [facility] COLOR (U) COLORLESS 05/12/2024 11:14 PM SERVICER [facility] TRANSPARENCY CLEAR 05/12/2024 11:14 PM SERVICER [facility] SPECIFIC GRAVITY (U) 1.007 1.001 - 1.030 05/12/2024 11:14 PM SERVICER [facility] U PH 7.0 5.0 - 9.0 05/12/2024 11:14 PM SERVICER [facility] LEUKOCYTES (U) 75(A) NEGATIVE 05/12/2024 11:14 PM SERVICER [facility] NITRITES NEGATIVE NEGATIVE 05/12/2024 11:14 PM [facility] PROTEIN RANDOM (U) NEGATIVE <30 MG/DL 05/12/2024 11:14 PM SERVICER [facility] GLUCOSE (U) NORMAL NORMAL MG/DL 05/12/2024 11:14 PM SERVICER [facility] KETONES MG/DL (U) NEGATIVE NEGATIVE MG/DL 05/12/2024 11:14 PM [facility] UROBILINOGEN NORMAL NORMAL MG/DL 05/12/2024 11:14 PM [facility] BILIRUBIN (U) NEGATIVE NEGATIVE MG/DL 05/12/2024 11:14 PM SERVICER [facility] BLOOD (U) NEGATIVE NEGATIVE 05/12/2024 11:14 PM SERVICER [facility] WBC/HPF 2 <6 /HPF 05/12/2024 11:14 PM SERVICER [facility] RBC/HPF 1 <6 /HPF 05/12/2024 11:14 PM SERVICER [facility] BACTERIA (U) RARE(A) NONE /HPF 05/12/2024 11:14 PM SERVICER [facility] SQUAMOUS EPITHELIALS RARE /HPF 05/12/2024 11:14 PM SERVICER [facility] URINE SPECIMEN OBTAINED BY CLEAN CATCH PROCEDURE / Unknown 05/12/2024 11:00 PM SERVICER us Janet FENG URINE ORDERABLES Final Result [facility] [address] [place] [address], [place] [phone] * CULTURE URINE (05/12/2024 11:00 PM SERVICER) SPEC DESCRIPTION URINE CLEAN CATCH 05/12/2024 11:36 PM SERVICER [facility] SPECIAL REQUESTS NO SPECIAL REQUEST 05/12/2024 11:36 PM SERVICER [facility] CULTURE RESULT POLYMICROBIAL GROWTH CONSISTENT WITH NORMAL GENITAL FOSTER. SUSCEPTIBILITIES NOT ROUTINELY PERFORMED. 05/14/2024 8:26 AM [facility] URINE SPECIMEN OBTAINED BY CLEAN CATCH PROCEDURE / Unknown 05/12/2024 11:00 PM SERVICER 05/13/2024 12:11 AM SERVICER Janet FENG MICROBIOLOGY - GENERAL ORDERAB LES Final Result [facility] [address] [place] [address], [place] [phone] * (ABNORMAL) COMPREHENSIVE METABOLIC PANEL (05/12/2024 11:00 PM SERVICER) GLUCOSE 107(H) 70 - 99 MG/DL 05/12/2024 11:33 PM SERVICER [facility] BUN 10 7 - 18 MG/DL 05/12/2024 11:33 PM [facility] CREATININE S/P/B 0.66 0.55 - 1.02 MG/DL 05/12/2024 11:33 PM SERVICER [facility] SODIUM S/P/B 138 136 - 145 MMOL/L 05/12/2024 11:33 PM [facility] POTASSIUM S/P/B 3.5 3.5 - 5.1 MMOL/L 05/12/2024 11:33 PM [facility] CHLORIDE S/P/B 108 97 - 115 MMOL/L 05/12/2024 11:33 PM [facility] CO2 22.7 21 - 32 MMOL/L 05/12/2024 11:33 PM [facility] CALCIUM S/P/B 9.0 8.5 - 10.1 MG/DL 05/12/2024 11:33 PM [facility] BILIRUBIN TOTAL S/P/B 0.5 0.2 - 1.2 MG/DL 05/12/2024 11:33 PM [facility] Comment: THIS ASSAY IS NOT RECOMMENDED FOR PATIENTS UNDERGOING TREATMENT WITH ELTROMBOPAG DUE TO THE POTENTIAL FOR FALSELY ELEVATED RESULTS. TOTAL PROTEIN S/P/B 7.5 6.4 - 8.2 G/DL 05/12/2024 11:33 PM [facility] ALBUMIN S/P/B 3.4 3.4 - 5.0 G/DL 05/12/2024 11:33 PM [facility] AST 9(L) 15 - 37 U/L 05/12/2024 11:33 PM [facility] ALT 18 14 - 55 U/L 05/12/2024 11:33 PM [facility] ALKALINE PHOSPHATASE S/P/B 96 50 - 136 U/L 05/12/2024 11:33 PM [facility] ANION GAP 7.3 2 - 10 MMOL/L 05/12/2024 11:33 PM [facility] BUN CREATININE RATIO 15.2 6 - 26 05/12/2024 11:33 PM [facility] A/G RATIO 0.8(L) 1.0 - 2.0 RATIO 05/12/2024 11:33 PM [facility] GFR ESTIMATE >90 >90 ML/MIN/1.7 3 M2 05/12/2024 11:33 PM [facility] Comment: NOTE: eGFR is not calculated for patients <18 years of age or gender unknown. This is an estimated GFR calculation using the new CKD EPI creatinine equation without race and so does not require a correction factor for race. This estimated GFR should not be used for calculating drug doses. 05/12/2024 11:0 0 PM SERVICER Janet FENG LABORATORY Final Result [facility] [address] [place] [address], [place] [phone] * (ABNORMAL) CBC W/DIFF AUTOMATED (05/12/2024 11:00 PM SERVICER) WBC 11.76(H) 4.5 - 11.0 x10'3/uL 05/12/2024 11:09 PM [facility] RBC 4.92 4.20 - 5.40 x10'6/uL 05/12/2024 11:09 PM [facility] HGB 13.5 12.0 - 16.0 G/DL 05/12/2024 11:09 PM [facility] HCT 39.9 38.0 - 48.0 % 05/12/2024 11:09 PM [facility] MCV 81.1 81.0 - 99.0 FL 05/12/2024 11:09 PM [facility] MCH 27.4 27.0 - 31.0 PG 05/12/2024 11:09 PM [facility] MCHC 33.8 32.0 - 36.0 G/DL 05/12/2024 11:09 PM [facility] RDW 12.9 11.5 - 14.5 % 05/12/2024 11:09 PM [facility] PLT 270 130 - 400 x10'3/uL 05/12/2024 11:09 PM [facility] MPV 10.5 9.3 - 12.2 FL 05/12/2024 11:09 PM [facility] DIFFERENTIAL TYPE AUTOMATED DIFFERENTIAL 05/12/2024 11:09 PM [facility] NEUTROPHILS % 75.2 % 05/12/2024 11:09 PM [facility] LYMPHOCYTES % 13.9 % 05/12/2024 11:09 PM [facility] MONOCYTES % 8.2 % 05/12/2024 11:09 PM [facility] EOSINOPHILS 2.0 % 05/12/2024 11:09 PM [facility] BASOPHILS 0.4 % 05/12/2024 11:09 PM [facility] IMMATURE GRANS % 0.3 % 05/12/20 11:09 PM [facility] ABS. NEUTROPHILS 8.85(H) 1.80 - 7.70 x10'3/uL 05/12/2024 11:09 PM [facility] ABS. LYMPHOCYTES 1.64 1.00 - 4.80 x10'3/uL 05/12/2024 11:09 PM [facility] ABS. MONOCYTES 0.96(H) 0.24 - 0.86 x10'3/uL 05/12/2024 11:09 PM [facility] ABS. EOSINOPHILS 0.23 0.04 - 0.36 x10'3/uL 05/12/2024 11:09 PM [facility] ABS. BASOPHILS 0.05 0.01 - 0.08 x10'3/uL 05/12/2024 11:09 PM [facility] ABS. IMMATURE GRANULOCYTES 0.03 0.00 - 0.49 x10'3/uL 05/12/2024 11:09 PM SERVICER [facility] 05/12/2024 11:0 0 PM SERVICER Janet FENG LABORATORY Final Result [facility] [address] [place] [address], * POCT urine (05/12/2024 10:57 PM SERVICER) URINE HCG TEST NEGATIVE Internal Control: VALID Janet FENG POINT OF CARE TEST ORDERABLES Final Result from Last 3 Months Insurance [employer] Advance Directives Documents on File Type Date Recorded Patient Cover Mat Machine Operator Expl anation Legal Documents 07/20/2022 4:58 PM PB [employer] Care Teams Nurse Care Manager Relationship Specialty Start Date End Date Marcie Pollard NP [address] [place] [address] PCP - General Nurse Practitioner Family 04/26/21
--- OUTSIDE RECORDS SUMMARY | 2024-08-09 10:59 | XMS_ITS | Referral Summary ---
Author Organization [facility] Address [address] [place] [address] Care Team Providers Care Family Development Specialist Name Role Phone Marcie Pollard NP Primary Care Provider [phone] Encounters Date Type Department Care Team Description 08/05/2024 Results Follow-Up [facility] Cardiology [address] [facility] [address] [place] [address] Anjana Rios NP 08/05/2024 9:57 AM PENSIONHOLDER INFORMATION CLERK - 08/05/2024 11:59 PM PENSIONHOLDER INFORMATION CLERK Hospital Encounter [facility] OP Cardiac Testing [address] [place] [address] Yuriy Mark MD Palpitations; Chest pain, precordial; 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; Family history of ASCVD (arteriosclerotic cardiovascular disease) Discharge Disposition: Discharge to home or self care from Last 3 Months Allergies Active Allergy Reactions Criticality Noted Date [...] on file Legal Sex Female 11:05 PM PENSIONHOLDER INFORMATION CLERK Gender Identity Not on file Sexual Orientation Not on file Last Filed Vital Signs Vital Sign Reading Time Taken Comments Blood Pressure 102/62 02/16/2024 9:25 AM CDT Pulse 102 02/16/2024 9:25 AM CDT Temperature 36.2 C (97.2 F) 07/28/2023 10:38 AM PENSIONHOLDER INFORMATION CLERK Respiratory Rate 13 07/28/2023 2:40 PM PENSIONHOLDER INFORMATION CLERK Oxygen Saturation 96% 02/16/2024 9:25 AM CDT Inhaled Oxygen Concentration - - Weight 94.8 kg (209 lb) 02/16/2024 9:25 AM CDT Height 172.7 cm (5' 8 ) 02/16/2024 9:25 AM CDT Body Mass Index 31.78 02/16/2024 9:25 AM CDT Plan of Treatment Not on file Procedures Procedure Name Priority Date/Time Associated Diagnosis Comments STRESS ECHO EXERCISE WO DOPPLER/CF WO CONTRAST Routine 08/05/2024 11:20 AM PENSIONHOLDER INFORMATION CLERK Palpitations Chest pain, precordial 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 female. MR#: [id number] Study date: 08/05/2024 Exercise Stress Echocardiogram Indications: Chest pain, nicotine dependence, palpitations Procedure: After informed consent was obtained, patient exercised on treadmill with Nicolas protocol for total of 9 minutes and 0 seconds, finishing 3 stages of Nicolas protocol and achieving 10.1 METS. Baseline heart rate was 79 increased to as high as 181 reaching target of 85 % maximal predicted heart rate. Baseline blood pressure was 129/86 and increased to as high as 164/88 . Symptoms: During the test, patient did not have any chest pain. The reason for stopping the test was shortness of breath which resolved in 3 minutes. EKG findings: Baseline EKG showed normal sinus rhythm. Peak exercise EKG showed sinus tachycardia with no significant ST or T-wave changes and recovery back to baseline in 2 minutes. Echocardiographic findings: Echocardiographic images at baseline showed normal left ventricular systolic function. No wall motion abnormality was seen. Peak exercise images showed good augmentation of LV systolic function with no new wall motion abnormality seen. Impression: Good exercise tolerance. Adequate heart rate response to exercise. Adequate blood pressure response to exercise. Test is negative for exercise-induced chest pain. Test is negative for exercise-induced ischemic EKG changes. Test is negative for exercise-induced significant arrhythmia. Test is negative for exercise-induced echocardiographic evidence of ischemia. SUMMARY: 1) Negative stress echo for ischemia. 2) Average exercise capacity. I personally supervised and interpreted the stress test. Copy to Marcie Pollard, BAG MAKING MACHINE OPERATOR Yuriy Mark MD 08/05/2024 This report was transcribed using the [email or web address] voice recognition system without human drum loader and unloader. In an effort to expedite patient care, this report has not been adjusted for typographical, grammatical, and syntax by a trained medical massage therapist. Despite proof reading there may be errors. Please contact me if you have any questions. us Yuriy Mark MD CV ECHO PROCEDURES Final R esult from Last 3 Months Insurance [employer] SIG [id number] Care Teams Family Development Specialist Relationship Specialty Start Date End Date Marcie Pollard NP [address] [place] [address] PCP - General Airfreight Operations Agent 02/16/24
--- OUTSIDE RECORDS SUMMARY | 2024-08-09 10:59 | XMS_ITS | Encounter Summary ---
Author Organization [facility] Address [address] [facility] [place] [address] Care Team Providers Care Business Information Analyst Name Role Phone Justin Andrews MD Primary Care Provider [phone] Jordon Chinag MD Unavailable Reason for Visit * Reason Onset Date Comments Question 12/09/2015 Encounter Details Date Type Department Care Team (Late st Contact Info) Description 12/09/2015 Telephone [facility] - [address] [facility] [place] [address] Hunter Oscar MD [facility] [place] [address] Question Social History Tobacco Use [...] home against moms wishes. She has a ACID CONDENSER appt scheduled 12/28/2015.Should she go back to ER and if she does will/can she be admitted? Should she have sooner appt? documented in this encounter Plan of Treatment Not on file documented as of this encounter Visit Diagnoses Not on filedocumented in this encounter Care Teams Business Information Analyst Relationship Specialty Start Date End Date Justin Andrews MD [facility] [place] [address] PCP - General Pediatrics 12/07/15 04/10/16 Jordon Chiang MD [address] [place] [address] Resident Student Resident 01/21/16 documented as of this encounter
--- OUTSIDE RECORDS SUMMARY | 2024-08-09 10:59 | XMS_ITS | Encounter Summary ---
Author Organization [facility] Address [address] [place] [address] Care Team Providers Care Balancer Scale Name Role Phone Marcie Pollard CORRECTIONAL SUPERVISOR LIEUTENANT Primary Care Provider + Encounter Details Date Type Department Care Team (Late st Contact Info) Description 05/16/2022 Pathwright Message Enc [facility] Family and Sports Medicine - [place] [address] [place] [address] [facility] Provider Schedule Appointment: Annual Physical Due Social [...] Rule Out 05/12/2024 05/13/2024 05/13/2024 12:35 AM PLASTIC DOLLS MOLD FILLER Assessment Noted Time PHQ-9 Depression Total Score: 2 05/03/20 21 3:37 PM PLASTIC DOLLS MOLD FILLER documented as of this encounter Care Teams Balancer Scale Relationship Specialty Start Date End Date Marcie Pollard CORRECTIONAL SUPERVISOR LIEUTENANT [address] [place] [address] PCP - General Nurse Practitioner Family 04/26/21 documented as of this encounter
--- OUTSIDE RECORDS SUMMARY | 2024-08-09 10:59 | XMS_ITS | Clinical Summary ---
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; Family history of ASCVD (arteriosclerotic cardiovascular disease) Discharge Disposition: Discharge to home or self care 08/05/2024 Results Follow-Up [facility] Cardiology [address] [facility] [address] [place] [address] Anjana Rios NP from Last 3 Months Medical History Medical History Date Comments Chest [...] on file Legal Sex Female 11:05 PM STEAM HOIST OPERATOR Gender Identity Not on file Sexual Orientation [...] 36.2 C (97.2 F) 07/28/2023 10:38 AM STEAM HOIST OPERATOR Respiratory Rate 13 07/28/2023 2:40 PM STEAM HOIST OPERATOR Oxygen Saturation 96% 02/16/2024 9:25 AM CDT Inhaled Oxygen Concentration - - Weight 94.8 kg (209 lb) 02/16/2024 9:25 AM CDT Height 172.7 cm (5' 8 ) 02/16/2024 9:25 AM CDT Body Mass Index 31.78 02/16/2024 9:25 AM CDT Plan of Treatment Health Maintenance Due Date [...] DOPPLER/CF WO CONTRAST Routine 08/05/2024 11:20 AM STEAM HOIST OPERATOR Palpitations Chest pain, precordial 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 female. MR#: [id number] Study date: 08/05/2024 Exercise Stress Echocardiogram Indications: [...] interpreted the stress test. Copy to Marcie Pollard NP John Lehman MD 08/05/2024 This report was transcribed using the [employer] (Chapter 11) computerized voice recognition system without human smelting engineer. In an effort to expedite patient care, this report has not been adjusted for typographical, grammatical, and syntax by a trained paramedical aide. Despite proof reading there may be errors. Please contact me if you have any questions. us Yuriy Mark MD CV ECHO PROCEDURES Final R esult from Last 3 Months Insurance [employer] SIG [id number] Relationship Specialty Start Date End Date Marcie Pollard NP [address] [place] [address] PCP - General Colon Therapist 02/16/24
--- OUTSIDE RECORDS SUMMARY | 2024-08-09 10:59 | XMS_ITS | Referral Summary ---
Author Organization [facility] Address [address] [place] [address] Care Team Providers Care Glove Printer Name Role Phone Jordon Chiang MD Unavailable Source Comments [facility],non-owned Affiliates and Associated Physician Practices is amultiple site organization consisting of ambulatory clinics and hospital sitesin [place], [place], [place] and [place]. This disclosure is being madepursuant to the Care Everywhere program and may not contain all information available regarding this patient. Last updated 18.[facility] Allergies No known active allergies Medications * [...] Packet 0 12/07/2015 Active Lactobacillus-Inulin ([facility] Medic Trace HEALTH) capsuleIndications:Re current UTI Take 1 Cap [...] Comments Blood Pressure 108/68 07/20/2016 2:15 PM DRIER ATTENDANT Pulse 72 04/11/2016 1:00 PM CDT Temperature 37.2 C (99 F) 12/23/2015 2:48 PM CDT Respiratory Rate 18 04/11/2016 1:00 PM CDT Oxygen Saturation 98% 12/23/2015 2:48 PM CDT RA Inhaled Oxygen Concentration - - Weight 65.4 kg (144 lb 2.9 oz) 07/20/2016 2:15 P M DRIER ATTENDANT Height 172 cm (5' 7.72 ) 07/20/2016 2:15 PM DRIER ATTENDANT Body Mass Index 22.11 07/20/2016 2:15 PM DRIER ATTENDANT Plan of Treatment Not on file Procedures Procedure Name Priority Date/Time Associated Diagnosis Comments HIV-1 HIV-2 ANTIBODY + HIV P24 AG PANEL Routine 06/01/2016 3:44 PM DRIER ATTENDANT Sexually active at young age CHLAMYDIA + GC AMPLIFIED PROBE Routine 06/01/2016 3:33 PM DRIER ATTENDANT Sexually active at young age from Last 3 Months or Most Recently Relevant to Health Maintenance Results * HIV-1 HIV-2 ANTIBODY + HIV P24 AG PANEL (06/01/2016 3:44 PM DRIER ATTENDANT) HIV1/2 Ab + P24 Ag Non Reactive Non Reactive 06/01/2016 5:21 PM DRIER ATTENDANT [facility] Blood BLOOD SPECIMEN / Unknown Lab Venipuncture / Unknown 06/01/2016 3:44 PM DRIER ATTENDANT 06/01/2016 4:06 PM DRIER ATTENDANT Narrative [facility] - 06/01/2016 5:21 PM DRIER ATTENDANT No Laboratory evidence of HIV infection. Kristen Monroy TESTING SHAKING SHIPPING-AWNING HANGER HELPER LAB - CHEMISTR Y ORDERABLES [facility] [address] [place] [id number] * CHLAMYDIA + GC AMPLIFIED PROBE (06/01/2016 3:33 PM DRIER ATTENDANT) Chlamydia Amplified Probe Negative Negative 06/02/2016 9:33 AM DRIER ATTENDANT [facility] GC Amplified Probe Negative Negative 06/02/2016 9:33 AM DRIER ATTENDANT [facility] Urine URINE / Unknown 06/01/2016 3 :33 PM DRIER ATTENDANT 06/01/2016 3:50 PM DRIER ATTENDANT Narrative [facility] - 06/02/2016 9:33 AM DRIER ATTENDANT This test was developed and its performance characteristics determined by the [facility], [facility]. Female urine specimens tested by the [facility] have not been cleared or approved by the U.S. Food and Drug Administration (FDA). The laboratory is regulated under the Clinical Laboratory Improvement Amendments (CLIA) as qualified to perform high-complexity testing. This test is used for clinical purposes. It should not be regarded as investigational or for research. Results based on detection/no detection of ribosomal RNA by amplified method. Kristen Monroy TESTING SHAKING SHIPPING-AWNING HANGER HELPER LAB - MICROBIO LOGY ORDERABLES [facility] [address] [place] [address], [facility] [phone] from Last 3 Months or Most Recently Relevant to Health Maintenance Care Teams Glove Printer Relationship Specialty Start Date End Date Jordon Chiagn MD Resident Student Resident 01/21/16
--- OUTSIDE RECORDS SUMMARY | 2024-08-09 10:59 | XMS_ITS | Encounter Summary ---
Author Organization [facility] Healthcare Address [address] [place] [address] Care Team Providers Care Associate Professor Of Theology Name Role Phone Marcie Pollard NP Primary Care Provider [phone] Encounter Details Date Type Department Care Team (Late st Contact Info) Description 08/05/2024 Results Follow-Up [facility] Medical Group Cardiology [address] [place] [address] Anjana Rios, CARINE [address] [facility] [address] [address] Social History Tobacco Use Types Packs/Day Years Used Date Smoking Tobacco: Never Personal Safety Answer Date Recorded Have you ever been in or are you currently in a harmful physical or emotional relationship or is someone making you feel afraid or unsafe? Denies 07/28/2023 Comments No Sex and Gender Information Value Date Recorded Sex Assigned at Not on file Legal Sex Female 11:05 PM CLOD PULLER Gender Identity Not on file Sexual Orientation Not on file documented as of this encounter Plan of Treatment Not on file documented as of this encounter Visit Diagnoses Not on filedocumented in this encounter Care Teams Associate Professor Of Theology Relationship Specialty Start Date End Date Marcie Pollard NP [address] [place] [address] PCP - General Policy Change Clerks Supervisor 02/16/24 documented as of this encounter
[2024-08-09] MEDS: LACTATED RINGERS 1,000 ML 30 ML IV CONT (12:00)
[2024-08-09] MEDS: KETOROLAC 15 MG/ML VIAL (*BKC) IV PUSH (12:00)
[2024-08-09] MEDS: ACETAMINOPHEN 500 MG TABLET 1000 MG PO (12:00)
--- NOTE | 2024-08-09 12:10 | P.PNAN_ITS ---
Anes - Initial Pre Proc Eval Procedure: Operation Date: 08/09/24 13:00 Proposed Procedures p Laparoscopic Left Ovarian Cystectomy - Eladio Epps MD s Suction Dilation and Curettage - Eladio Epps MD Date/Time: 08/09/24 12:10 Surgeon: Eladio Epps MD Pre Op Diagnosis: left ovarian cyst, abnormal quad, irregu bleeding Patient Data Age: 24 Gender: F Height: 1.75 m Weight: 95.9 kg Allergies Allergy/AdvReac Type Severity Reaction Status Date / Time No Known Allergies Allergy Verified 08/09/24 12:19 Home Medications ?Medication ?Instructions ?Recorded ?Confirmed ?Type hydrocodone 5 mg-acetaminophen 325 1 tablet PO Q4H PRN pain #20 tabs 08/09/24 Rx mg tablet Laboratory Tests 08/09/24 11:31 Blood Type O Positive Antibody Screen Pending Patient hx anesthesia problems: none Family hx anesthesia problems: none Results Review: All pre-operative results and documents have been reviewed as part of the pre- operative evaluation. [facility] Past Medical History Medical History Miscarriage Depression Anxiety Recurrent UTI Asthma seasonal Surgical History Surgical History History of elective X 2 Family History Family History Father Asthma Heart disease Hypertension Mother Asthma Sibling Asthma VSD (ventricular septal defect) Epilepsy Social History Social History (Updated 08/09/24 @ 12:57 by Stu Mari DO) Smoking status: Current every day smoker Tobacco type: e-cigarettes/vaping Alcohol intake: current Alcohol use details: Stopped drinking over the summer Substance use: never Living arrangements: with family Gender identity (if verbalized by the patient): Female Spiritual care concerns: No Anes - Eval Final PreProcedure Day of Procedure 08/09/24 12:10 Patient weight: obese Heart: regular rate and rhythm Lungs: clear to auscultation Airway: Mallampati scale class II Neurological: alert and oriented Last oral intake: >/= 8 hours ASA classification: III Emergent: no Anesthetic plan: proceed Anesthesia type and monitoring: general ETT and standard monitoring Results Review: All pre-operative results and documents have been reviewed as part of the pre-operative evaluation. Informed Consent: The patient's anesthetic plan and its attendant risks and benefits were discussed with the patient/family/POA. Questions were solicited and answers provided to the satisfaction of the patient/family/POA.
--- NOTE | 2024-08-09 13:39 | P.OP_ITS ---
Procedure Note - Detailed Date of Procedure 08/09/24 Pre-op Diagnosis left ovarian cyst, abnormal quad, irregu bleeding Post-op Diagnosis Other (Left ovarian cyst/abnormal ) Procedure Performed Laparoscopic left left cyst destruction/suction dilatation curettage. Surgeon Eladio Epps MD Anesthesia General Indications 24-year-old female with abnormally rising quantitative HCGs and large left ovarian cyst. Findings 10cm simple ovarian cyst on the left. Normal-appearing right ovary and tube. Normal-appearing uterus. On hysteroscopy the uterus sounded to 9cm. Very minimal tissue was present inside the uterus Description of Procedure The patient was prepped and draped in the sterile fashion placed in the dorsal lithotomy position. Under excellent general endotracheal anesthesia weighted speculum placed in posterior fornix vagina. Anterior lip of the cervix grasped with a single-tooth tenaculum. Do's cannula inserted the cervix and attached to the single-tooth be used later for uterine manipulation. Bladder was emptied of clear urine the weighted speculum was removed. The gloves were changed. An infraumbilical incision made Veress needle passed in the abdomen. Abdomen avtar led with CO2 gas to 15 of the 5mm trocar advanced under direct visualization with the operative scope no injury seen. Patient placed in Trendelenburg and a suprapubic incision made. 5mm trocar advanced under direct visualization assuring injury. A large left ovarian cyst was seen this was opened in linear fashion. This was drained of clear follicular fluid until the ovary became normal size. The remainder of the pelvis appeared within normal limits as did the appendix liver and gallbladder. The instruments were then removed after gas removed from the abdomen. The incisions closed with 4-0 Monocryl and glue. Attention was turned to the suction D&C portion. The uterus sounded to 9cm. Serial dilatation with fragmented dilators performed followed by passage of 9. Suction curette. Very minimal tissue was removed. This was consistent with the history of the patient having of fairly moderate bleed the night before the instruments withdrawn the patient was awakened. She went to recovery in satisfactory condition. All sponge, needle, instrument counts were correct. Were no immediate complications Estimated Blood Loss 5 Drains No Packing No Pathology Yes Complications No immediate complications Condition Stable Disposition PACU
[2024-08-09] MEDS: fentaNYL CITRATE INJ (*CRX) 100 MCG/2 ML VIAL 25 MCG IV PUSH ×4 (13:51→14:05)
== END 2024-08-09 15:30 | disposition home or self-care (01) ==
LOC: ANHSURGERY 10:26
PROVIDERS: Visit Provider Obstetrics & Gynecology
PROC: (CPT 49320; principal; 2024-08-09 13:00)
PROC: (CPT 58662; 2024-08-09 13:00)
DX: O03.4 Incomplete spontaneous abortion without complication (principal); N83.202 Unspecified ovarian cyst, left side; F17.290 Nicotine dependence, other tobacco product, uncomplicated
CPT/HCPCS: 58662; 59812; 36415; 85461; 86850; 86900; 86901; 88305; A9270; J1100; J1885; J2003; J2250; J2405; J2704; J3010; J7120

== ENCOUNTER 2024-08-16 11:23 | Outpatient (CLI) | payer OTHER, SELFPAY ==
[2024-08-16 12:06] LABS: Hemoglobin 14.1 g/dL (12.0-15.0); Mean Corpuscular Hemoglobin 27.8 pg (26-34); Mean Corpuscular Volume 86.8 fl (80-100); Mean Platelet Volume 10.4 fl (7.4-10.4); Platelet Count Result 292 k/mm3 (150-375); Red Blood Count 5.07 M/mm3 (4.2-5.4); Red Cell Distribution Width 13.2 % (11.5-14.5); White Blood Count 10.8 K/mm3 (4.5-10.0)
== END 2024-08-16 11:24 | disposition home or self-care (01) ==
LOC: ANHLAB 11:25
PROVIDERS: Visit Provider Obstetrics & Gynecology
DX: O03.4 Incomplete spontaneous abortion without complication (principal)
CPT/HCPCS: 36415; 84702; 85027

== ENCOUNTER 2024-09-13 00:44 | Day surgery (SDC) | payer OTHER, SELFPAY ==
[2024-09-11 08:19] VITALS: BMI 30.6
--- NOTE | 2024-09-11 08:20 | PC.NURSE ---
Report to the Outpatient Waiting Room, entrance under the green pavilion located off [facility], at time _130pm_ on date _[id number]_. Planned Procedure Time: _330pm_.? Time changes happen often and if your time is changed the preop area will call you the afternoon before. - You and your visitor will be asked to self-screen and do not enter if you have any COVID symptoms. Please call surgeon if you need to reschedule. - A mask is optional within the hospital at this time. Patients may have clear liquids (water, carbonated beverages, clear teas, apple juice) until 3 hours prior to surgery with a maximum of 20 ounces. - No food from midnight until time of surgery and no smoking, or chewing tobacco (or any form of nicotine). No chewing gum, candy or mints. Take only the following medications with a SIP of water on the morning of surgery: __None___ DO NOT STOP ANY OF YOUR OTHER PRESCRIPTION MEDICATIONS PRIOR TO SURGERY EXCEPT THE FOLLOWING Hold all vitamins and supplements for 3 days per anesthesiologist. Medications to discontinue per physician Date to take last dose Please no make-up, nail slovenian, hairspray, perfume, deodorant, or body powder the day of surgery.? No jewelry (including any body piercings) or valuables the day of surgery, leave them at home.? Please take a shower or bath the night before, or the morning of, surgery with an antibacterial soap.? Wear comfortable, loose fitting clothing.? - Jewelry must be removed prior to entering the operating room.? Rings and piercings that are not removed may be cut off. - The hospital will not accept responsibility for valuables.? - Please leave all valuables, including medications, at home the day of surgery. If you are going home after surgery, a licensed corporate driver must drive you home.? - NO public transportation without another adult if you receive anesthesia. - We recommend that an adult stay with you for 24 hours following discharge. - We also recommend that you do not drive, make important decision, drink alcoholic beverages, or take any drugs that were not prescribed by your health care provider for at least 24 hours after your discharge time. Follow any additional instructions given to you from your surgeon. Telephone instructions given to _Janeth__and asked if any additional questions and then verbalized understanding. Patient advised to call surgeon office or pre surgery nurse liaison [phone] if any additional questions.
[2024-09-13] VITALS (9 sets, daily range): BP systolic 109–142; BP diastolic 59–89; PULSE 71–91; RESP 12–20; TEMP 36.3–36.6; O2SAT 98–100; BMI 30.5
--- OUTSIDE RECORDS SUMMARY | 2024-09-13 00:51 | XMS_ITS | Encounter Summary ---
Author Organization [facility] Healthcare Address [address] [place] [address] Care Team Providers Care Employee Services Manager Name Role Phone Marcie Pollard NP Primary Care Provider [phone] Encounter Details Date Type Department Care Team (Late st Contact Info) Description 08/05/2024 Results Follow-Up [facility] Medical Group Cardiology [address] [facility] [address] [place] [address] Anjana Rios, CARINE [address] [facility] [address] [address] Social History Tobacco Use Types [...] on file 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
--- OUTSIDE RECORDS SUMMARY | 2024-09-13 00:51 | XMS_ITS | Clinical Summary ---
Author Organization [facility] Address [address] [place] [address] Phone Care Team Providers Care Service Establishment Attendant Name Role Phone Unavailable Primary Care Provider [...]
--- OUTSIDE RECORDS SUMMARY | 2024-09-13 00:51 | XMS_ITS | Referral Summary ---
Author Organization [facility] Address [address] [place] [address] Care Team Providers Care Organic Section Technical Lead Name Role Phone Marcie Pollard NP Primary Care Provider [phone] Encounters Date Type Department Care Team Description 08/05/2024 Results Follow-Up [facility] Medical Group Cardiology [address] [facility] [address] [place] [address] Anjana Rios NP 08/05/2024 9:57 AM WARE DRESSER - 08/05/2024 11:59 PM WARE DRESSER Hospital Encounter [facility] OP Cardiac Testing [address] [place] [address] Yuriy Mark MD Palpitations; Chest [...] on file 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 Gender Identity Not on file Sexual Orientation Not on file Last Filed Vital Signs Vital Sign Reading Time Taken Comments Blood Pressure 102/62 02/16/2024 9:25 AM CDT Pulse 102 02/16/2024 9:25 AM CDT Temperature 36.2 C (97.2 F) 07/28/2023 10:38 AM WARE DRESSER Respiratory Rate 13 07/28/2023 2:40 PM WARE DRESSER Oxygen Saturation 96% 02/16/2024 9:25 AM CDT [...] DOPPLER/CF WO CONTRAST Routine 08/05/2024 11:20 AM WARE DRESSER Palpitations Chest pain, precordial 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 Family history of ASCVD (arteriosclerotic cardiovascular disease) from Last 3 Months Results * STRESS ECHO EXERCISE WO DOPPLER/CF WO CONTRAST (08/05/2024 11:20 AM WARE DRESSER) Anatomical Region Laterality Modality Ultrasound Narrative 08/05/2024 11:05 AM WARE DRESSER Patient Id: Danielle Peter is a 24 y.o. female. MR#: [id number] Study date: 08/05/2024 Exercise Stress Echocardiogram Indications: [...] the stress test. Copy to Marcie Pollard, SALES DEVELOPMENT EXECUTIVE Yuriy Mark MD 08/05/2024 This report was transcribed using the [employer] voice recognition system without human quality improvement coordinator. In an effort to expedite patient care, this report has not been adjusted for typographical, grammatical, and syntax by a trained medical accounts receivable specialist. Despite proof reading there may be errors. Please contact me if you have any questions. us Yuriy Mark MD CV ECHO PROCEDURES Final R esult from Last 3 Months Insurance [employer] SIG [id number] Care Teams Organic Section Technical Lead Relationship Specialty Start Date End Date Marcie Pollard NP [address] [place] [address] PCP - General Load Planner 02/16/24
--- OUTSIDE RECORDS SUMMARY | 2024-09-13 00:51 | XMS_ITS | Clinical Summary ---
Author Organization [facility] Address [address] [place] [address] Care Team Providers Care Photo Specialist Name Role Phone Jordon Chiang MD Unavailable Source Comments [facility],non-owned Affiliates and Associated Physician Practices is amultiple site organization consisting of ambulatory clinics and hospital sitesin [place], [place], [place] and [place]. This disclosure is being madepursuant to the Care Everywhere program and may not contain all information available regarding this patient. Last updated 18.[facility] Allergies No known active allergies Medications * [...] daily 30 Packet 0 12/07/2015 Active Lactobacillus-Inulin ([facility] HEALTH) capsuleIndications:Re current UTI Take 1 Cap [...] defect Brother minna nary artery disease ? AK<65(female) Maternal Grandmother Sudd. <30 Maternal Uncle Anxiety Disorder Mother Bipolar Disorder Mother AK<65(female) Paternal Grandmother Congenital Heart defect Sister vsd Arrhythmia Neg Hx CVA<55(male) Neg Hx CVA<65(female) Neg Hx Cardiomyopathy Neg Hx Heart Surgery Neg Hx Long QT Syndrome Neg Hx AK<55(male) Neg Hx Marfan Syndrome Neg Hx Pacemaker [...] Comments Blood Pressure 108/68 07/20/2016 2:15 PM NUTRITION PARTNER Pulse 72 04/11/2016 1:00 PM CDT Temperature 37.2 C (99 F) 12/23/2015 2:48 PM CDT Respiratory Rate 18 04/11/2016 1:00 PM CDT Oxygen Saturation 98% 12/23/2015 2:48 PM CDT RA Inhaled Oxygen Concentration - - Weight 65.4 kg (144 lb 2.9 oz) 07/20/2016 2:15 P M NUTRITION PARTNER Height 172 cm (5' 7.72 ) 07/20/2016 2:15 PM NUTRITION PARTNER Body Mass Index 22.11 07/20/2016 2:15 PM NUTRITION PARTNER Plan of Treatment Health Maintenance Due Date Last Done Comments PAP SMEAR 1998 HPV VACCINE (1 - 3-dose series) 2013 HEPATITIS C SCREENING 07/08/2016 HEPATITIS A VACCINE (2 of 2 - Risk 2-dose series) 03/23/2017 09/21/2016 HEPATITIS B VACCINE (1 of 3 - 19+ 3-dose series) 2017 COVID-19 VACCINE (2023-2 5 season) 2024 INFLUENZA VACCINE (#1) 2024 DEPRESSION SCREENING 06/19/2024 DTAP/TDAP/TD VACCINES (2 - T d or Tdap) 12/14/2029 12/15/2019 ZOSTER VACCINE (1 of 2) 2048 HIV SCREENING Completed 06/01/2016 HIB VACCINE Aged Out No longer eligi ble based on patient's age to complete this topic MENINGOCOCCAL (Group B) VACC INE SHARED DECISION-MAKING Aged Out No longer eligibl e based on patient's age to complete this topic MENINGOCOCCAL GROUPS A/C/Y/W VACCINE Aged Out No longer eligible b ased on patient's age to complete this topic PNEUMOCOCCAL VACCINE Aged Out No long er eligible based on patient's age to complete this topic Procedures Procedure Name Priority Date/Time Associated Diagnosis Comments HIV-1 HIV-2 ANTIBODY + HIV P24 AG PANEL Routine 06/01/2016 3:44 PM NUTRITION PARTNER Sexually active at young age from Last 3 Months or Most Recently Relevant to Health Maintenance Results * HIV-1 HIV-2 ANTIBODY + HIV P24 AG PANEL (06/01/2016 3:44 PM NUTRITION PARTNER) HIV1/2 Ab + P24 Ag Non Reactive Non Reactive 06/01/2016 5:21 PM NUTRITION PARTNER [facility] Blood BLOOD SPECIMEN / Unknown Lab Venipuncture / Unknown 06/01/2016 3:44 PM NUTRITION PARTNER 06/01/2016 4:06 PM NUTRITION PARTNER Narrative [facility] - 06/01/2016 5:21 PM NUTRITION PARTNER No Laboratory evidence of HIV infection. Kristen Monroy TERRAZZO INSTALLER-FIBERGLASS QUALITY TECHNICIAN LAB - CHEMISTR Y ORDERABLES Performing Organization Address City/State/[facility] Co de Phone Number [facility] [address] [place] [address] from Last 3 Months or Most Recently Relevant to Health Maintenance Care Teams Photo Specialist Relationship Specialty Start Date End Date Jordon Chiang MD Resident Student Resident 01/21/16
--- OUTSIDE RECORDS SUMMARY | 2024-09-13 00:51 | XMS_ITS | Clinical Summary ---
Author Organization [facility] Address [address] [place] [address] Care Team Providers Care Nurse Chemical Dependency Name Role Phone Marcie Pollard NP Primary Care Provider [phone] Allergies No known active allergies Medications busPIRone [...] Encounters Date Type Department Care Team Description 08/19/2024 10:46 PM FORK LIFT TRUCK OPERATOR - 08/20/2024 4:41 AM [facility] Emergency [facility] [place] [address] Beau Cox MD,PHD Abdominal Pain Discharge Disposition: Home or Self Care (Routine Discharge) 08/19/2024 Travel 08/05/2024 Scan [facility] Scanned, Doc [facility] Echo (SCAN) from Last 3 Months Immunizations Name Administration Dates Next Due DTaP (Daptacel) 03/15/2004,11/26/1999 Dtap (Acel-Immune) 02/02/1999,1998 Dtp (Generic) 1998 HPV4 (Gardasil) 09/04/2013,05/07/2013,02/20/2013 Hepatitis A (Havrix 1440 El.U) 09/21/2016 Hepatitis A (Havrix 720 El.U) 02/20/2013 Hepatitis B Pediatric 02/02/1999,1998,06/20 Hib (Generic) 02/02/1999,1998,1998 Hib (Omni-Hib) 11/26/1999 MMR (MMRII) 03/15/2004,07/14/1999 Meningococcal (Menactra) 04/04/2016,02/20/2013 Polio IPV (Ipol) 03/15/2004,11/26/1999,,1998 Tdap (Generic) 12/15/2019,02/20/2013 Varicella (Varivax) 02/20/2013,07/14/1999 Family [...] Information Value Date Recorded Sex Assigned at Female 08/19/2024 10:49 PM FORK LIFT TRUCK OPERATOR Legal Sex Female 7:26 PM CDT Gender Identity Not on file Sexual Orientation Not on file Last Filed Vital Signs Vital Sign Reading Time Taken Comments Blood Pressure 115/60 08/20/2024 4:28 AM FORK LIFT TRUCK OPERATOR Pulse 95 08/20/2024 4:28 AM FORK LIFT TRUCK OPERATOR Temperature 36.6 C (97.8 F) 08/20/2024 4:28 AM FORK LIFT TRUCK OPERATOR Respiratory Rate 18 08/20/2024 4:28 AM FORK LIFT TRUCK OPERATOR Oxygen Saturation 100% 08/20/2024 4:28 AM FORK LIFT TRUCK OPERATOR Inhaled Oxygen Concentration - - Weight 93 kg (205 lb) 08/19/2024 10:35 PM FORK LIFT TRUCK OPERATOR Height 175.3 cm (5' 9 ) 08/19/2024 10:35 PM FORK LIFT TRUCK OPERATOR Body Mass Index 30.27 08/19/2024 10:35 PM FORK LIFT TRUCK OPERATOR Plan of Treatment Health Maintenance Due Date Last Done Comments Annual Physical 2001 Hepatitis C 2016 Cervical Cancer Screening Pap Smear (Age 21 to 29) Every 3 Years 06/01/2019 06/01/2016 Cervical Cancer Screening 06/01/2019 COVID-19 Vaccine ( season) 2024 Influenza Adult (#1) 2024 PHQ-2 (Physician Quinault) 06/19/2024 DTaP, Tdap and Td Vaccines (8 [...] Procedure Name Priority Date/Time Associated Diagnosis Comments US PELVIC NON OB COMP TV STAT 08/20/2024 3:42 AM FORK LIFT TRUCK OPERATOR CT ABD+PEL W CON STAT 08/20/2024 2:10 AM FORK LIFT TRUCK OPERATOR POCT URINE (BACK OFFICE) STAT 08/19/2024 11:10 PM FORK LIFT TRUCK OPERATOR LIPASE STAT 08/19/2024 11:05 PM FORK LIFT TRUCK OPERATOR COMPREHENSIVE METABOLIC PANEL STAT 08/19/2024 11:05 PM FORK LIFT TRUCK OPERATOR CBC W/DIFF AUTOMATED STAT 08/19/2024 11:05 PM FORK LIFT TRUCK OPERATOR HCG QUANT (SERUM)-CHORIONIC GONADOTROPIN STAT 08/19/2024 11:04 PM FORK LIFT TRUCK OPERATOR HC URINALYSIS AUTO W/O MICRO STAT 08/19/2024 11:04 PM FORK LIFT TRUCK OPERATOR ECHO GENERIC (SCAN ORDER) 08/05/2024 from Last 3 Months Results * US PELVIC NON OB COMP TV (08/20/2024 3:42 AM FORK LIFT TRUCK OPERATOR) Anatomical Region Laterality Modality Pelvis Ultrasound 08/20/2024 3:42 AM FORK LIFT TRUCK OPERATOR Impressions 08/20/2024 3:50 AM FORK LIFT TRUCK OPERATOR IMPRESSION: 1. NORMAL SONOGRAPHIC APPEARANCE OF UTERUS WITH NORMAL ENDOMETRIAL STRIPE. 2. SLIGHTLY ENLARGED RIGHT OVARY WITH 2.5 CM IN DIAMETER SIMPLE CYST EITHER REPRESENTING A BENIGN PHYSIOLOGIC MATURE FOLLICLE. 3. ENLARGED LEFT OVARY WITH COMPLEX CYSTIC MASS MEASURING 6.5 X 4 CM AND CONSISTENT WITH A LEFT OVARIAN DERMOID NOTED ON CT EARLIER SAME DAY. Signed: Rj Duque MD Referred By: Interpreted By: Rj Duque MD, 08/20/2024 3:42 AM Narrative 08/20/2024 3:50 AM FORK LIFT TRUCK OPERATOR [address] [address] PATIENT NAME: CLEMENTINA CAMACHO EXAM: Ultrasound pelvic nonobstetric DATE OF EXAM: 08/20/2024 COMPARISON EXAM: CT abdomen/pelvis 08/20/2024 INDICATION: Right lower quadrant pain. History of recent section D&C for miscarriage, previous surgery for left ovarian cyst TECHNIQUE: Longitudinal and transverse grayscale images of the pelvic structures, color Doppler. FINDINGS: The uterus is anteverted and normal in size measuring 8.8 cm in length. Normal homogeneous myometrial echogenicity. No focal uterine mass lesion. Normal appearance of the endometrial stripe with maximum stripe thickness of 7.5 mm. No abnormal fluid in the endometrial canal. Normal appearance of the cervix. The right ovary is visualized and is slightly enlarged with multiple small follicles and a 2.5 cm simple appearing cyst suggesting a mature follicle. Normal blood flow to the right ovary on color Doppler. There is a left adnexal mass likely representing a mass of left ovarian origin. This has very heterogeneous echogenicity and corresponds with the left ovarian dermoid noted on CT obtained earlier same day. The left ovarian dermoid measures approximately 6.5 x 4 cm in transverse diameter. There is blood flow to left ovary color Doppler. Complex fluid is noted in the left adnexa and cul-de-sac regions. Procedure Note Rj Duque MD - 08/20/[address] [address] PATIENT NAME: CLEMENTINA CAMACHO EXAM: Ultrasound pelvic nonobstetric DATE OF EXAM: 08/20/2024 COMPARISON EXAM: CT abdomen/pelvis 08/20/2024 INDICATION: Right lower quadrant pain. History of recent section D&C formiscarriage, previous surgery for left ovarian cyst TECHNIQUE: Longitudinal and transverse grayscale images of the pelvicstructures, color Doppler. FINDINGS: The uterus is anteverted and normal in size measuring 8.8 cm inlength. Normal homogeneous myometrial echogenicity. No focal uterinemass lesion. Normal appearance of the endometrial stripe with maximumstripe thickness of 7.5 mm. No abnormal fluid in the endometrial canal.Normal appearance of the cervix. The right ovary is visualized and is slightly enlarged with multiple smallfollicles and a 2.5 cm simple appearing cyst suggesting a mature follicle.Normal blood flow to the right ovary on color Doppler. There is a left adnexal mass likely representing a mass of left ovarianorigin. This has very heterogeneous echogenicity and corresponds with theleft ovarian dermoid noted on CT obtained earlier same day. The leftovarian dermoid measures approximately 6.5 x 4 cm in transverse diameter.There is blood flow to left ovary color Doppler. Complex fluid is notedin the left adnexa and cul-de-sac regions. IMPRESSION: 1. NORMAL SONOGRAPHIC APPEARANCE OF UTERUS WITH NORMAL ENDOMETRIALSTRIPE. 2. SLIGHTLY ENLARGED RIGHT OVARY WITH 2.5 CM IN DIAMETER SIMPLE CYSTEITHER REPRESENTING A BENIGN PHYSIOLOGIC MATURE FOLLICLE. 3. ENLARGED LEFT OVARY WITH COMPLEX CYSTIC MASS MEASURING 6.5 X 4 CM ANDCONSISTENT WITH A LEFT OVARIAN DERMOID NOTED ON CT EARLIER SAME DAY. Signed: Rj Duque MD Referred By: Interpreted By: Rj Duque MD, 08/20/2024 3:42 AM us Beau Cox MD,PHD ULTRASOUND Final Resu lt * CT ABD+PEL W IV CON ONLY (08/20/2024 2:10 AM FORK LIFT TRUCK OPERATOR) Anatomical Region Laterality Modality Abdomen Computed Tomogra phy 08/20/2024 2:19 AM FORK LIFT TRUCK OPERATOR Impressions 08/20/2024 2:27 AM FORK LIFT TRUCK OPERATOR IMPRESSION: 1. Mild to moderate hyperdense fluid within the pelvis that may represent hemorrhage. Findings could be seen in the setting of a ruptured hemorrhagic ovarian cyst. Pelvic ultrasound could be beneficial for further characterization. 2. Left adnexal dermoid. Referred By: Interpreted By: Rickey Dias MD, 08/20/2024 2:19 AM Narrative 08/20/2024 2:27 AM FORK LIFT TRUCK OPERATOR [address] [address] EXAMINATION: CT ABD+PEL W CON, 08/20/2024 2:19 AM TECHNIQUE: Computed tomographic images of the abdomen and pelvis were obtained after the administration of 100 mL otherwise 300 injected through the right antecubital fossa IV, without evidence of adverse reaction. Additional coronal and sagittal reformatted images were generated. A dose lowering technique was used for this procedure, which may include, but is not limited to, dose reduction technique, automated exposure control, the use of iterative reconstruction, and ALARA (As Low As Reasonably Achievable) / Image Gently techniques. HISTORY: Right lower quadrant abdominal pain, diarrhea COMPARISON: None available FINDINGS: Lung bases are well-aerated. Heart size is normal. ABDOMEN: Liver is normal in size and contour. The gallbladder is negative. There is no bile duct dilation. The pancreas is negative. The spleen is normal in size. There is no adrenal mass. There is no perinephric abnormality. No renal mass. No acute process. No nephrolithiasis. The caliber of the abdominal aorta is normal. No retroperitoneal adenopathy. PELVIS: The appendix is not well seen. No findings of acute appendicitis. No bowel dilation or wall thickening. There is a 7 cm left adnexal dermoid. 2.2 cm right adnexal cyst. Mild to moderate mildly hyperdense fluid within the pelvis that may represent hemorrhage. No free intraperitoneal air. No acute fracture nor destructive process of the visualized osseous structures. Procedure Note Rickey Dias MD - 08/20/[address] [address] EXAMINATION: CT ABD+PEL W CON, 08/20/2024 2:19 AM TECHNIQUE: Computed tomographic images of the abdomen and pelvis wereobtained after the administration of 100 mL otherwise 300 injected throughthe right antecubital fossa IV, without evidence of adverse reaction.Additional coronal and sagittal reformatted images were generated. A doselowering technique was used for this procedure, which may include, but isnot limited to, dose reduction technique, automated exposure control, theuse of iterative reconstruction, and ALARA (As Low As ReasonablyAchievable) / Image Gently techniques. HISTORY: Right lower quadrant abdominal pain, diarrhea COMPARISON: None available FINDINGS: Lung bases are well-aerated. Heart size is normal. ABDOMEN: Liver is normal in size and contour. The gallbladder isnegative. There is no bile duct dilation. The pancreas is negative. Thespleen is normal in size. There is no adrenal mass. There is noperinephric abnormality. No renal mass. No acute process. Nonephrolithiasis. The caliber of the abdominal aorta is normal. Noretroperitoneal adenopathy. PELVIS: The appendix is not well seen. No findings of acute appendicitis.No bowel dilation or wall thickening. There is a 7 cm left adnexaldermoid. 2.2 cm right adnexal cyst. Mild to moderate mildly hyperdensefluid within the pelvis that may represent hemorrhage. No freeintraperitoneal air. No acute fracture nor destructive process of thevisualized osseous structures. IMPRESSION: 1. Mild to moderate hyperdense fluid within the pelvis that may representhemorrhage. Findings could be seen in the setting of a rupturedhemorrhagic ovarian cyst. Pelvic ultrasound could be beneficial forfurther characterization. 2. Left adnexal dermoid. Referred By: Interpreted By: Rickey Dias MD, 08/20/2024 2:19 AM [address]io Doherty PAP[address] CT Final Resul t * (ABNORMAL) POCT urine (08/19/2024 11:10 PM FORK LIFT TRUCK OPERATOR) Pathologist [facility] URINE HCG TEST POSITIVE(A ) Comment:Recent miscarriage - HCG trending down per pt Internal Control: VALID Beau Cox MD,PHD POINT OF CARE TEST ORDERAB LES Final Result * (ABNORMAL) COMPREHENSIVE METABOLIC PANEL (08/19/2024 11:05 PM FORK LIFT TRUCK OPERATOR) [facility] GLUCOSE 98 70 - 99 MG/DL 08/19/2024 11:41 PM FORK LIFT TRUCK OPERATOR [facility] BUN 13 7 - 18 MG/DL 08/19/2024 11:41 PM [facility] CREATININE S/P/B 0.65 0.55 - 1.02 MG/DL 08/19/2024 11:41 PM FORK LIFT TRUCK OPERATOR [facility] SODIUM S/P/B 139 136 - 145 MMOL/L 08/19/2024 11:41 PM FORK LIFT TRUCK OPERATOR [facility] POTASSIUM S/P/B 3.6 3.5 - 5.1 MMOL/L 08/19/2024 11:41 PM [facility] CHLORIDE S/P/B 106 97 - 115 MMOL/L 08/19/2024 11:41 PM [facility] CO2 27.0 21 - 32 MMOL/L 08/19/2024 11:41 PM [facility] CALCIUM S/P/B 9.2 8.5 - 10.1 MG/DL 08/19/2024 11:41 PM [facility] BILIRUBIN TOTAL S/P/B 0.4 0.2 - 1.2 MG/DL 08/19/2024 11:41 PM [facility] Comment: THIS ASSAY IS NOT RECOMMENDED FOR PATIENTS UNDERGOING TREATMENT WITH ELTROMBOPAG DUE TO THE POTENTIAL FOR FALSELY ELEVATED RESULTS. TOTAL PROTEIN S/P/B 7.1 6.4 - 8.2 G/DL 08/19/2024 11:41 PM [facility] ALBUMIN S/P/B 3.5 3.4 - 5.0 G/DL 08/19/2024 11:41 PM [facility] AST 10(L) 15 - 37 U/L 08/19/2024 11:41 PM [facility] ALT 20 14 - 55 U/L 08/19/2024 11:41 PM [facility] ALKALINE PHOSPHATASE S/P/B 94 50 - 136 U/L 08/19/2024 11:41 PM [facility] ANION GAP 6.0 2 - 10 MMOL/L 08/19/2024 11:41 PM [facility] BUN CREATININE RATIO 20.0 6 - 26 08/19/2024 11:41 PM [facility] A/G RATIO 1.0 1.0 - 2.0 RATIO 08/19/2024 11:41 PM [facility] GFR ESTIMATE >90 >90 ML/MIN/1.7 3 M2 08/19/2024 11:41 PM [facility] Comment: NOTE: eGFR is not calculated for patients <18 years of age or gender unknown. This is an estimated GFR calculation using the new CKD EPI creatinine equation without race and so does not require a correction factor for race. This estimated GFR should not be used for calculating drug doses. 08/19/2024 11:0 5 PM FORK LIFT TRUCK OPERATOR Eladio Doherty PA-C LABORATORY Final Resul t [facility] [address] [place] [address], * (ABNORMAL) CBC W/DIFF AUTOMATED (08/19/2024 11:05 PM FORK LIFT TRUCK OPERATOR) WBC 10.18 4.5 - 11.0 x10'3/uL 08/19/2024 11:18 PM FORK LIFT TRUCK OPERATOR [facility] RBC 4.48 4.20 - 5.40 x10'6/uL 08/19/2024 11:18 PM FORK LIFT TRUCK OPERATOR [facility] HGB 12.3 12.0 - 16.0 G/DL 08/19/2024 11:18 PM FORK LIFT TRUCK OPERATOR [facility] HCT 37.1(L) 38.0 - 48.0 % 08/19/2024 11:18 PM [facility] MCV 82.8 81.0 - 99.0 FL 08/19/2024 11:18 PM FORK LIFT TRUCK OPERATOR [facility] MCH 27.5 27.0 - 31.0 PG 08/19/2024 11:18 PM FORK LIFT TRUCK OPERATOR [facility] MCHC 33.2 32.0 - 36.0 G/DL 08/19/2024 11:18 PM [facility] RDW 12.7 11.5 - 14.5 % 08/19/2024 11:18 PM FORK LIFT TRUCK OPERATOR [facility] PLT 296 130 - 400 x10'3/uL 08/19/2024 11:18 PM [facility] MPV 10.2 9.3 - 12.2 FL 08/19/2024 11:18 PM [facility] DIFFERENTIAL TYPE AUTOMATED DIFFERENTIAL 08/19/2024 11:18 PM [facility] NEUTROPHILS % 67.9 % 08/19/2024 11:18 PM [facility] LYMPHOCYTES % 21.7 % 08/19/2024 11:18 PM [facility] MONOCYTES % 7.5 % 08/19/2024 11:18 PM [facility] EOSINOPHILS 2.2 % 08/19/2024 11:18 PM [facility] BASOPHILS 0.4 % 08/19/2024 11:18 PM [facility] IMMATURE GRANS % 0.3 % 08/20/19 11:18 PM [facility] ABS. NEUTROPHILS 6.92 1.80 - 7.70 x10'3/uL 08/19/2024 11:18 PM [facility] ABS. LYMPHOCYTES 2.21 1.00 - 4.80 x10'3/uL 08/19/2024 11:18 PM [facility] ABS. MONOCYTES 0.76 0.24 - 0.86 x10'3/uL 08/19/2024 11:18 PM [facility] ABS. EOSINOPHILS 0.22 0.04 - 0.36 x10'3/uL 08/19/2024 11:18 PM [facility] ABS. BASOPHILS 0.04 0.01 - 0.08 x10'3/uL 08/19/2024 11:18 PM [facility] ABS. IMMATURE GRANULOCYTES 0.03 0.00 - 0.49 x10'3/uL 08/19/2024 11:18 PM [facility] 08/19/2024 11:0 5 PM FORK LIFT TRUCK OPERATOR Eladio Doherty PA-C LABORATORY Final Resul t [facility] [address] [place] [address], [place] [phone] * LIPASE (08/19/2024 11:05 PM FORK LIFT TRUCK OPERATOR) LIPASE 36 13 - 75 UNITS/L 08/19/2024 11:41 PM FORK LIFT TRUCK OPERATOR [facility] 08/19/2024 11:0 5 PM FORK LIFT TRUCK OPERATOR Eladio Doherty PA-C LABORATORY Final Resul t Performing Organization Address [facility]/ZIP Co de Phone Number [facility] [address] [place] [address], [place] [phone] * (ABNORMAL) URINALYSIS (08/19/2024 11:04 PM FORK LIFT TRUCK OPERATOR) SPECIMEN TYPE URINE CLEAN CATCH 08/19/2024 11:02 PM [facility] COLOR (U) LIGHT YELLOW 08/19/2024 11:23 PM [facility] TRANSPARENCY CLEAR 08/19/2024 11:23 PM [facility] SPECIFIC GRAVITY (U) 1.024 1.001 - 1.030 08/19/2024 11:23 PM FORK LIFT TRUCK OPERATOR [facility] U PH 6.5 5.0 - 9.0 08/19/2024 11:23 PM [facility] LEUKOCYTES (U) NEGATIVE NEGATIVE 08/19/2024 11:23 PM [facility] NITRITES NEGATIVE NEGATIVE 08/19/2024 11:23 PM [facility] PROTEIN RANDOM (U) NEGATIVE <30 MG/DL 08/19/2024 11:23 PM [facility] GLUCOSE (U) NORMAL NORMAL MG/DL 08/19/2024 11:23 PM [facility] KETONES MG/DL (U) NEGATIVE NEGATIVE MG/DL 08/19/2024 11:23 PM [facility] UROBILINOGEN NORMAL NORMAL MG/DL 08/19/2024 11:23 PM [facility] BILIRUBIN (U) NEGATIVE NEGATIVE MG/DL 08/19/2024 11:23 PM [facility] BLOOD (U) 3+(A) NEGATIVE 08/19/2024 11:23 PM [facility] MUCUS RARE /LPF 08/19/2024 11:23 PM [facility] WBC/HPF 1 <6 /HPF 08/19/2024 11:23 PM [facility] RBC/HPF >100(H) <6 /HPF 08/19/2024 11:23 PM [facility] SQUAMOUS EPITHELIALS RARE /HPF 08/19/2024 11:23 PM [facility] URINE SPECIMEN OBTAINED BY CLEAN CATCH PROCEDURE / Unknown 08/19/2024 11:04 PM FORK LIFT TRUCK OPERATOR Eladio Doherty PA-C URINE ORDERABLES Final Resu lt [facility] [address] [place] [address], [place] [phone] * Quantitative HCG (08/19/2024 11:04 PM FORK LIFT TRUCK OPERATOR) HCG QUANTITATIVE 94 MIU/ML 08/21/19 12:22 AM FORK LIFT TRUCK OPERATOR [facility] Comment: WEEKS OF REFERENCE RANGES Non- female < or = 2 0.2 - 1 5 - 50 1 - 2 50 - 500 2 - 3 100 - 5000 3 - 4 500 - 10,000 4 - 5 1000 - 50,000 5 - 6 10,000 - 100,000 6 - 8 15,000 - 200,000 2 - 3 MONTHS 10,000 - 100,000 08/19/2024 11:0 4 PM FORK LIFT TRUCK OPERATOR Beau Cox MD,PHD LABORATORY Final Resu lt [facility] [address] [place] [address], [place] [phone] * ECHO GENERIC (SCAN ORDER) (08/05/2024) Anatomical Region Laterality Modality Other 08/05/2024 us Doc Med Group Scanned SCANNING Final Resu lt from Last 3 Months Insurance [employer] Advance Directives Documents on File Type Date Recorded Patient Steamboat Inspector Expl anation Legal Documents 07/20/2022 4:58 PM PB [employer] Care Teams Nurse Chemical Dependency Relationship Specialty Start Date End Date Marcie Pollard NP [address] [place] [address] PCP - General Nurse Practitioner Family 04/26/21
--- OUTSIDE RECORDS SUMMARY | 2024-09-13 00:51 | XMS_ITS | Encounter Summary ---
Author Organization [facility] Address [address] [place] [address] Care Team Providers Care Shirt Presser Name Role Phone Justin Andrews MD Primary Care Provider [phone] Jordon Chiang MD Unavailable Reason for Visit * Reason Onset Date Comments Question 12/09/2015 Encounter Details Date Type Department Care Team (Late st Contact Info) Description 12/09/2015 Telephone [facility] Pediatrics - [address] [place] [address] Hunter Oscar MD [facility] [place], [place] [id number] Question Social History Tobacco Use Types Packs/Day [...] home against moms wishes. She has a [employer]AM MEMBER appt scheduled 12/28/2015.Should she go back to ER and if she does will/can she be admitted? Should she have sooner appt? documented in this encounter Plan of Treatment Not on file documented as of this encounter Visit Diagnoses Not on filedocumented in this encounter Care Teams Shirt Presser Relationship Specialty Start Date End Date Justin Andrews MD [facility] [place] [address] PCP - General Pediatrics 12/07/15 04/10/16 Jordon Chiang MD [address] [place] [address] Resident Student Resident 01/21/16 documented as of this encounter
--- OUTSIDE RECORDS SUMMARY | 2024-09-13 00:51 | XMS_ITS | Clinical Summary ---
Author Organization 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; Family history of ASCVD (arteriosclerotic cardiovascular disease) Discharge Disposition: Discharge to home or self care 08/05/2024 Results Follow-Up [facility] Cardiology [address] [place] [address] Anjana Rios NP from Last [...] on file Legal Sex Female 11:05 PM COMMERCIAL OCEAN CLAMMER Gender Identity Not on file Sexual Orientation [...] 36.2 C (97.2 F) 07/28/2023 10:38 AM COMMERCIAL OCEAN CLAMMER Respiratory Rate 13 07/28/2023 2:40 PM COMMERCIAL OCEAN CLAMMER Oxygen Saturation 96% 02/16/2024 9:25 AM CDT [...] DOPPLER/CF WO CONTRAST Routine 08/05/2024 11:20 AM COMMERCIAL OCEAN CLAMMER Palpitations Chest pain, precordial 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 female. MR#: [id number] Study date: 08/05/2024 Exercise Stress Echocardiogram Indications: [...] 08/05/2024 This report was transcribed using the [employer] computerized voice recognition system without human canvas worker. In an effort to expedite patient care, this report has not been adjusted for typographical, grammatical, and syntax by a trained certified medical coder. Despite proof reading there may be errors. Please contact me if you have any questions. us Yuriy Mark MD CV ECHO PROCEDURES Final R esult from Last 3 Months Insurance [employer] SIG [id number] Care Teams Renewable Energy Engineer Relationship Specialty Start Date End Date Marcie Pollard NP [address] [place] [address] PCP - General Wafer Fabrication Technician 02/16/24
--- OUTSIDE RECORDS SUMMARY | 2024-09-13 00:51 | XMS_ITS | Encounter Summary ---
Author Organization [facility] Address [address] [place] [address] Care Team Providers Care Labor Union Business Representative Name Role Phone Marcie Pollard LABELING MACHINE OPERATOR Primary Care Provider [phone] Encounter Details Date Type Department Care Team (Late st Contact Info) Description 05/16/2022 [employer] Message Enc [facility] Family and Sports Medicine - [place] [address] [place] [address] [facility] Schedule Appointment: Annual Physical Due Social [...] Sex Assigned at Female 08/19/2024 10:49 PM GRADER TENDER Legal Sex Female 7:26 PM CDT Gender Identity Not on file Sexual Orientation Not on file documented as of this encounter Plan of Treatment Not on file documented as of this encounter Visit Diagnoses Not on filedocumented in this encounter Additional Health Concerns Infection Onset Date Last Indicated Resolved Time COVID-19 Rule Out 05/12/2024 05/13/2024 05/13/2024 12:35 AM GRADER TENDER Assessment Noted Time PHQ-9 Depression Total Score: 2 05/03/20 21 3:37 PM GRADER TENDER documented as of this encounter Care Teams Labor Union Business Representative Relationship Specialty Start Date End Date Marcie Pollard LABELING MACHINE OPERATOR [address] [place] [address] PCP - General Nurse Practitioner Family 04/26/21 documented as of this encounter
--- NOTE | 2024-09-13 07:17 | WPDHPUPDATE1 ---
History and Physical Update Update Date/Time: 09/13/24 07:17 History and Physical has been reviewed, including an updated exam of the patient. There are NO changes in the patient's condition. Risks, benefits, and alternatives have been discussed and questions answered. Patient agrees to proceed with procedure.
--- NOTE | 2024-09-13 14:09 | P.PNAN_ITS ---
Anes - Initial Pre Proc Eval Procedure: Operation Date: 09/13/24 15:30 Proposed Procedures p Diagnostic Laparoscopy, Left Ovarian Cystectomy - Eladio Epps MD Date/Time: 09/13/24 14:09 Surgeon: Eladio Epps MD Pre Op Diagnosis: pain, left ovarian cyst Patient Data Age: 24 Gender: F Height: 1.75 m Weight: 93.8 kg Last Vital Signs Temp 36.6 C 09/13/24 14:06 Pulse 79 09/13/24 14:06 BP 126/62 09/13/24 14:06 Pulse Ox 100 09/13/24 14:06 O2 Del Method Room Air 09/13/24 14:06 Allergies Allergy/AdvReac Type Severity Reaction Status Date / Time No Known Allergies Allergy Verified 09/13/24 14:04 Home Medications ?Medication ?Instructions ?Recorded ?Confirmed ?Type hydrocodone 5 mg-acetaminophen 325 1 tablet PO Q4H PRN pain #20 tabs 09/13/24 Rx mg tablet Laboratory Tests 09/13/24 13:21 Blood Type O Positive Antibody Screen Pending Patient hx anesthesia problems: none Family hx anesthesia problems: none Results Review: All pre-operative results and documents have been reviewed as part of the pre- operative evaluation. [facility] Past Medical History Medical History Miscarriage Depression Anxiety Recurrent UTI Asthma seasonal Surgical History Surgical History History of elective X 2 Family History Family History Father Asthma Heart disease Hypertension Mother Asthma Sibling Asthma VSD (ventricular septal defect) Epilepsy Social History Social History Smoking status: Current every day smoker Tobacco type: e-cigarettes/vaping Alcohol intake: current Alcohol use details: Stopped drinking over the summer Substance use: never Living arrangements: with family Gender identity (if verbalized by the patient): Female Spiritual care concerns: No Anes - Eval Final PreProcedure Day of Procedure 09/13/24 14:09 Patient weight: obese Heart: regular rate and rhythm Lungs: clear to auscultation Airway: Mallampati scale class II Neurological: alert and oriented Last oral intake: >/= 8 hours ASA classification: II Emergent: no Anesthetic plan: proceed Anesthesia type and monitoring: general ETT and standard monitoring Results Review: All pre-operative results and documents have been reviewed as part of the pre- operative evaluation. Informed Consent: The patient's anesthetic plan and its attendant risks and benefits were discussed with the patient/family/POA. Questions were solicited and answers provided to the satisfaction of the patient/family/POA.
[2024-09-13] MEDS: ACETAMINOPHEN 500 MG TABLET 1000 MG PO (14:11)
[2024-09-13] MEDS: KETOROLAC 15 MG/ML VIAL (*BKC) IV PUSH (14:11)
[2024-09-13] MEDS: SCOPOLAMINE 1 MG PATCH 1 PATCH TRANSDERM (14:11)
[2024-09-13] MEDS: LACTATED RINGERS 1,000 ML 30 ML IV CONT ×2 (14:11→15:53)
--- NOTE | 2024-09-13 15:45 | W.PM.PROC2 ---
Procedure Note - Detailed Date of Procedure 09/13/24 Pre-op Diagnosis pain, left ovarian cyst Post-op Diagnosis Same Procedure Performed Laparoscopic left oophorectomy and biopsy of right ovary Surgeon Eladio Epps MD Anesthesia General Indications this is a 24-year-old female with complex left ovarian cyst and right ovarian cyst as well. Findings A dermoid cyst that encased the entire left ovary. There was hemorrhagic cyst on the right which was adherent to the ovarian fossa. Normal-appearing tubes and uterus Description of Procedure patient was prepped draped in the normal sterile fashion placed in dorsal lithotomy position. Under excellent general trach anesthesia weighted speculum placed in posterior fornix vagina. Anterior lip of the cervix grasped with a single-tooth tenaculum. Do's cannula inserted the cervix attached be used later for uterine manipulation. After emptying the bladder clear urine weighted speculum was removed the gloves were changed. An infraumbilical incision made the Veress needle passed in the abdomen. Abdomen filled with CO2 gas [id number]. The 5mm trocar advanced under direct visualization assuring no injury. Patient placed in Trendelenburg Trendelenburg suprapubic incision made. The 5mm trocar advanced under direct visualization assuring no injury. A left lower quadrant incision and the 10mm trocar advanced under direct visualization assuring no injury. Is a fair amount of fluid in the cul-de-sac and this was suctioned away on the right ovary was the hemorrhagic cyst and this had made the right ovary adherent to the ovarian fossa this was scraped away until clear. Irrigation undertaken until clear photo documentation undertaken. The right ovary that contained this large dermoid cyst and it was felt that it could not be saved however at its base and the cyst this was clamped burned and cut with the LigaSure placed in an Endo-Catch and then removed piecemeal through the right left lower quadrant incision. I was encased in oil and hair consistent with a dermoid cyst. Irrigation then undertaken to clear and no other abnormalities were seen the trocars removed after gas removed from the abdomen. The incisions closed with 4 Monocryl and glue. The patient was awakened went recovery in satisfactory condition. All sponge, needle, instrument counts were correct there were no immediate complications Estimated Blood Loss 5 Drains No Packing No Pathology Yes Complications No immediate complications Condition Stable Disposition PACU
[2024-09-13] MEDS: fentaNYL CITRATE INJ (*CRX) 100 MCG/2 ML VIAL 25 MCG IV PUSH (16:18)
--- NOTE | 2024-09-18 06:33 | PM.IMHP ---
H&P: HPI History of Present Illness Date/Time: 09/18/24 06:33 Chief Complaint: Complex ovarian cyst Narrative: 24-year-old female with complex left ovarian cyst that appears to be a dermoid she is admitted for left cystectomy possible oophorectomy Review of Systems Review of Systems: All systems reviewed & are unremarkable except as noted in HPI and below PMFSH Past Medical History Medical History Miscarriage Depression Anxiety Recurrent UTI Asthma seasonal Surgical History Surgical History History of elective X 2 Family History Family History Father Asthma Heart disease Hypertension Mother Asthma Sibling Asthma VSD (ventricular septal defect) Epilepsy Social History Social History Smoking status: Current every day smoker Tobacco type: e-cigarettes/vaping Alcohol intake: current Alcohol use details: Stopped drinking over the summer Substance use: never Living arrangements: with family Gender identity (if verbalized by the patient): Female Spiritual care concerns: No Meds Home Medications and Allergies Home Medications ?Medication ?Instructions ?Recorded ?Confirmed ?Type hydrocodone 5 mg-acetaminophen 325 1 tablet PO Q4H PRN pain #20 tabs 09/13/24 Rx mg tablet Allergies Allergy/AdvReac Type Severity Reaction Status Date / Time No Known Allergies Allergy Verified 09/13/24 14:04 Exam Const: General: cooperative, healthy appearing and comfortable Nutritional Appearance: average body habitus Orientation/consciousness: oriented to person, oriented to place and oriented to time HENMT: Head: normal to inspection Resp: Effort & Inspection: normal respiratory effort Cardio: Rate: regular rate Rhythm: regular rhythm Heart sounds: S1 normal heart sound present and S2 normal heart sound present GI: Inspection: normal to inspection : External Female Exam: normal external appearance Speculum Exam - Vagina: normal appearance of the vagina Speculum Exam - Cervix: normal appearance of the cervix Bimanual exam- vagina & uterus: uterine shape normal Bimanual Exam- Adnexa, other: Adnexal mass present on the left tender Assessment and Plan Assessment and plan (1) Complex cyst of left ovary: Code(s): N83.292 - Other ovarian cyst, left side Status: Acute Plan Proceed with laparoscopic left cystectomy possible left oophorectomy
== END 2024-09-13 17:45 | disposition home or self-care (01) ==
PROVIDERS: PCP Nurse Practitioner Family; Visit Provider Obstetrics & Gynecology
PROC: (CPT 49320; principal; 2024-09-13 15:30)
DX: D27.1 Benign neoplasm of left ovary (principal); N80.121 Deep endometriosis of right ovary; F32.A Depression, unspecified; F41.9 Anxiety disorder, unspecified; J45.909 Unspecified asthma, uncomplicated; F17.290 Nicotine dependence, other tobacco product, uncomplicated; E66.9 Obesity, unspecified; Z68.30 Body mass index [BMI] 30.0-30.9, adult; Z79.891 Long term (current) use of opiate analgesic; Z98.890 Other specified postprocedural states; Z82.49 Family history of ischemic heart disease and other diseases of the circulatory system
CPT/HCPCS: 58661; 49321; 36415; 86850; 86900; 86901; 88305; A9270; J1100; J1885; J2003; J2250; J2405; J2704; J3010; J7120

== ENCOUNTER 2025-01-23 03:29 | Emergency (ER) | payer OTHER, SELFPAY ==
[2025-01-23 03:31] VITALS: BP 119/69; PULSE 97; RESP 14; TEMP 37.1; O2SAT 99
--- OUTSIDE RECORDS SUMMARY | 2025-01-23 03:32 | XMS_ITS | Encounter Summary ---
Author Organization [facility] Address [address] [place] [address] Care Team Providers Care Poem Writer Name Role Phone Marcie Pollard TELEGRAPH AND TELETYPE OPERATOR Primary Care Provider [phone] Encounter Details Date Type Department Care Team (Late st Contact Info) Description 09/17/2024 PO[employer] Message Enc [facility] Medical Group Family and Sports Medicine - [place] [address] [place] [address] Marcie Pollard TELEGRAPH AND TELETYPE OPERATOR [address] [place] [address] Physical Social History Tobacco Use Types Packs/Day Years [...] Sex Assigned at Female 08/19/2024 10:49 PM CUMULATIVE EFFECTS ANALYST Legal Sex Female 7:26 PM CDT Gender Identity Not on file Sexual Orientation Not on file documented as of this encounter Plan of Treatment Not on file documented as of this encounter Visit Diagnoses Not on filedocumented in this encounter Additional Health Concerns Assessment Noted Time PHQ-9 Depression Total Score: 2 05/03/20 21 3:37 PM CUMULATIVE EFFECTS ANALYST documented as of this encounter Care Teams Poem Writer Relationship Specialty Start Date End Date Marcie Pollard NP [address] [place] [address] PCP - General Nurse Practitioner Family 04/26/21 documented as of this encounter
--- OUTSIDE RECORDS SUMMARY | 2025-01-23 03:32 | XMS_ITS | Encounter Summary ---
Author Organization [facility] Address [address] [place] [address] Care Team Providers Care Natural Resources Manager Name Role Phone Marcie Pollard ADVERTISING ASSISTANT MANAGER Primary Care Provider + Encounter Details Date Type Department Care Team (Late st Contact Info) Description 01/21/2025 [email or web address] Message Enc [facility] Medical Group Family and Sports Medicine - [place] [address] [place] [address] Marcie Pollard ADVERTISING ASSISTANT MANAGER [address] [place] [address] medicine Social History Tobacco Use Types Packs/Day Years Used Date Smoking Tobacco: Never Passive Smoke Exposure: Never Smokeless Tobacco: Never Comments:vape nictotine Alcohol Use Standard Drinks/Week Comments Yes 0 (1 standard drink = 0.6 oz pur e alcohol) rarely PHQ-2 Answer Date Recorded Patient Health Questionnaire-2 Score 1 10/17/2024 Comments No Sex and Gender Information Value Date Recorded Sex Assigned at Female 08/19/2024 10:49 PM MAJOR GENERAL Legal Sex Female 7:26 PM CDT Gender Identity Not on file Sexual Orientation Not on file documented as of this encounter Plan of Treatment Not on file documented as of this encounter Visit Diagnoses Diagnosis Acute non-recurrent maxillary sinusitis- Primary documented in this encounter Additional Health Concerns Assessment Noted Time PHQ-9 Depression Total Score: 7 10/18/19 25 2:40 PM CDT documented as of this encounter Care Teams Natural Resources Manager Relationship Specialty Start Date End Date Marcie Pollard NP [address] [place] [address] PCP - General Nurse Practitioner Family 04/26/21 documented as of this encounter
--- OUTSIDE RECORDS SUMMARY | 2025-01-23 03:32 | XMS_ITS | Clinical Summary ---
Author Organization [facility] Address [address] [place] [address] Care Team Providers Care Levelman Name Role Phone Jordon Chiang MD Unavailable Source Comments [facility],non-owned Affiliates and Associated Physician Practices is amultiple site organization consisting of ambulatory clinics and hospital sitesin [place], [place], [place]. This disclosure is being madepursuant to the Care Everywhere program and may not contain all information available regarding this patient. Last updated 18.[facility] Allergies No known active allergies Medications * Be aware that medications may not be up to date on this document. Alwaysverify current medications with the patient. ibuprofen (MOTRIN) 600 MG tablet Take 1 Tab by mouth every 8 hours as needed for Pain. 30 Tab 0 05/06/2013 Active albuterol HFA (PROVENTIL;WANG MIRTA;PROAIR) 108 (90 BASE) MCG/ACT inhaler Inhale 2 Puffs by mouth every 6 hours as needed. Active polyethylene glycol 3350 (MIRALAX) packet Take 17 g by mouth once daily 30 Packet 0 12/07/2015 Active Lactobacillus-In ulin ([facility] [employer] [facility]) capsuleIndicatio ns:Recurrent UTI Take 1 Cap by mouth once daily 30 Cap 5 06/01/2016 Active Active Problems Problem Noted Date Diagnosed Date Sexually active at young age 1206/06/2016 Recurrent UTI 06/06/2016 Voiding dysfunction 06/06/2016 Hypercalciuria 06/06/2016 Immunizations Immunization Administration Dates Next Due HEP A VACCINE, ADULT 09/21/2016 TDAP (7yrs+) 12/15/2019 Family History Medical History Relation Name Comments Congenital Heart defect Brother minna nary artery disease ? ME<65(female) Maternal Grandmother Sudd. <30 Maternal Uncle Anxiety Disorder Mother Bipolar Disorder Mother ME<65(female) Paternal Grandmother Congenital Heart defect Sister vsd Arrhythmia Neg Hx CVA<55(male) Neg Hx CVA<65(female) Neg Hx Cardiomyopathy Neg Hx Heart Surgery Neg Hx Long QT Syndrome Neg Hx ME<55(male) Neg Hx Marfan Syndrome Neg Hx Pacemaker Neg Hx Relation Name Status Comments Brother Maternal Grandmother Maternal Uncle Mother Paternal Grandmother Sister Social History Tobacco Use Types Packs/Day Years Used Date Smoking Tobacco: Passive Smo ke Exposure - Never Smoker Alcohol Use Standard Drinks/Week Comments No 0 (1 standard drink = 0.6 oz pur e alcohol) Comments No Sex and Gender Information Value Date Recorded Sex Assigned at Not on file Legal Sex Female 5:39 AM RADIO FREQUENCY DESIGN ENGINEER Gender Identity Not on file Sexual Orientation Not on file Last Filed Vital Signs Vital Sign Reading Time Taken Comments Blood Pressure 108/68 07/20/2016 2:15 PM RADIO FREQUENCY DESIGN ENGINEER Pulse 72 04/11/2016 1:00 PM CDT Temperature 37.2 C (99 F) 12/23/2015 2:48 PM CDT Respiratory Rate 18 04/11/2016 1:00 PM CDT Oxygen Saturation 98% 12/23/2015 2:48 PM CDT RA Inhaled Oxygen Concentration - - Weight 65.4 kg (144 lb 2.9 oz) 07/20/2016 2:15 P M RADIO FREQUENCY DESIGN ENGINEER Height 172 cm (5' 7.72) 07/20/2016 2:15 PM RADIO FREQUENCY DESIGN ENGINEER Body Mass Index 22.11 07/20/2016 2:15 PM RADIO FREQUENCY DESIGN ENGINEER Plan of Treatment Health Maintenance Due Date Last Done Comments HPV VACCINE (1 - 3-dose series) 2013 HEPATITIS C SCREENING 07/08/2016 HEPATITIS A VACCINE (2 of 2 - Risk 2-dose series) 03/23/2017 09/21/2016 HEPATITIS B VACCINE (1 of 3 - 19+ 3-dose series) 2017 PAP SMEAR 2019 COVID-19 VACCINE (2023-2 5 season) 2024 DEPRESSION SCREENING 06/19/2024 INFLUENZA VACCINE (#1) 2025 DTAP/TDAP/TD VACCINES (2 - T d or [...] P24 AG PANEL Routine 06/01/2016 3:44 PM RADIO FREQUENCY DESIGN ENGINEER Sexually active at young age from Last 3 Months or Most Recently Relevant to Health Maintenance Results * HIV-1 HIV-2 ANTIBODY + HIV P24 AG PANEL (06/01/2016 3:44 PM RADIO FREQUENCY DESIGN ENGINEER) HIV1/2 Ab + P24 Ag Non Reactive Non Reactive 06/01/2016 5:21 PM RADIO FREQUENCY DESIGN ENGINEER [facility] Blood BLOOD SPECIMEN / Unknown Lab Venipuncture / Unknown 06/01/2016 3:44 PM RADIO FREQUENCY DESIGN ENGINEER 06/01/2016 4:06 PM RADIO FREQUENCY DESIGN ENGINEER Narrative [facility] - 06/01/2016 5:21 PM RADIO FREQUENCY DESIGN ENGINEER No Laboratory evidence of HIV infection. Kristen Monroy URBAN GARDENING SPECIALIST-COMMUNICATIONS STATION MANAGER LAB - CHEMISTRY ORDERA BLES Final Result Performing Organization Address City/State/[facility] Co de Phone Number [facility] [address] [place] [address] from Last 3 Months or Most Recently Relevant to Health Maintenance Insurance [employer] SELF PAY NO INSURANCE Member Subscriber Plan / Payer (Ef fective for All Dates) Name:Clementina Camacho Member ID:Not on file Relation to Subscriber:Not on file Name:CLEMENTINA CAMACHO Subscriber ID:Not on file (Home) Address: [address] [place] [address] [place] [address] Payer ID:Not on file Group ID:Not on file Type:Self Pay Address: [place], [place] Care Teams Levelman Relationship Specialty Start Date End Date Jordon Chiang MD Resident Student Resident 01/21/16
--- OUTSIDE RECORDS SUMMARY | 2025-01-23 03:32 | XMS_ITS | Clinical Summary ---
Author Organization [facility] Address [address] [place] [address] Care Team Providers Care Barrel Line Operator Name Role Phone Marcie Pollard NP Primary Care Provider [phone] Allergies Active Allergy Reactions Criticality Noted Date Comments Erythromycin Rash Medium 03/31/2020 Rash Medications fluticasone propionate (FLONASE) 50 mcg/actuation nasal spray Administer 2 sprays into each nostril daily as needed for allergies Active ibuprofen (ADVIL,MOTRIN) 600 mg tablet Take 1 tablet (600 mg total) by mouth every 8 (eight) hours as needed 3 Active busPIRone (BUSPAR) 10 mg tablet Take 1 tablet (10 mg total) by mouth 2 (two) times a day 4 Active omeprazole (PriLOSEC) 20 mg capsule Take 1 capsule (20 mg total) by mouth daily 4 Active Active Problems Problem Noted Date Diagnosed [...] on file Legal Sex Female 11:05 PM PUMP MACHINE OPERATOR Gender Identity Not on file Sexual [...] 36.2 C (97.2 F) 07/28/2023 10:38 AM PUMP MACHINE OPERATOR Respiratory Rate 13 07/28/2023 2:40 PM PUMP MACHINE OPERATOR Oxygen Saturation 96% 02/16/2024 9:25 AM CDT Inhaled Oxygen Concentration - - Weight 94.8 kg (209 lb) 02/16/2024 9:25 AM CDT Height 172.7 cm (5' 8) 02/16/2024 9:25 AM CDT Body Mass Index 31.78 02/16/2024 9:25 AM CDT Plan of Treatment Health Maintenance Due Date Last Done Comments Cervical Cancer Screening 1998 Depression Screening 1998 Hepatitis C Screening 1998 Regular Well Visit/Exam 18-64 2016 Influenza Vaccine (#1) 2025 DTaP/Tdap/Td Vaccine (8 - Td or Tdap) 12/14/2029 12/15/2019, 02/20/2013, 03/15/2004, Additional history exists Hepatitis B Screening Completed 02/02/1999 , 1998, 1998 Varicella Vaccines Completed 02/20/2013, 07/14/1999 HPV Vaccines Completed 09/04/2013, 04/19, 02/20/2013 Pneumococcal vaccine <65 Aged Out No longer eligible based on patient's age to complete [place] [address] [employer] SIG [id number] Care Teams Barrel Line Operator Relationship Specialty Start Date End Date Marcie Pollard NP [address] [place] [address] PCP - General Service Order Clerk 02/16/24
--- OUTSIDE RECORDS SUMMARY | 2025-01-23 03:32 | XMS_ITS | Encounter Summary ---
Author Organization [facility] Address [address] [place] [address] Care Team Providers Care Senior Windows Engineer Name Role Phone Marcie Pollard BOLT SAWYER Primary Care Provider [phone] Encounter Details Date Type Department Care Team (Late st Contact Info) Description 05/16/2022 [employer] Message Enc [facility] Medical Group Family and Sports Medicine - [place] [address] [place] [address] [facility] Schedule Appointment: Annual Physical Due Social [...] Sex Assigned at Female 08/19/2024 10:49 PM DATA ANALYSIS INTERN Legal Sex Female 7:26 PM CDT Gender Identity Not on file Sexual Orientation Not on file documented as of this encounter Plan of Treatment Not on file documented as of this encounter Visit Diagnoses Not on filedocumented in this encounter Additional Health Concerns Infection Onset Date Last Indicated Resolved Time COVID-19 Rule Out 05/12/2024 05/13/2024 05/13/2024 12:35 AM DATA ANALYSIS INTERN Assessment Noted Time PHQ-9 Depression Total Score: 2 05/03/20 21 3:37 PM DATA ANALYSIS INTERN documented as of this encounter Care Teams Senior Windows Engineer Relationship Specialty Start Date End Date Marcie Pollard BOLT SAWYER [address] [place] [address] PCP - General Nurse Practitioner Family 04/26/21 documented as of this encounter
--- OUTSIDE RECORDS SUMMARY | 2025-01-23 03:32 | XMS_ITS | Clinical Summary ---
Author Organization [facility] Address [address] [place] [address] Care Team Providers Care Financial Supervisor Name Role Phone Marcie Pollard RECORD KEEPER Primary Care Provider [phone] [phone] No known active allergies Medications busPIRone (BUSPAR) 10 MG tabletIndicatio ns:Anxiety Take 1 tablet (10 mg total) by mouth 2 (two) times daily. 60 tablet 2 11/28/2024 Active azithromycin (ZITHROMAX) 250 MG tabletIndicatio ns:Acute non-recurrent maxillary sinusitis Take 2 tablets (500 mg total) by mouth daily for 1 day, THEN 1 tablet (250 mg total) daily for 4 days. 6 tablet 01/21/2025 5 Active Active Problems Problem Noted Date Diagnosed Date Hypercalciuria 06/06/2016 Anxiety disorder 09/15/2015 Resolved Problems Problem Noted Date Diagnosed Date Resolved Date Breast lump or mass 09/28/2016 05/03/20 21 Voiding dysfunction 06/06/2016 05/03/20 21 Raynauds phenomenon 06/26/2015 05/03/20 21 Recurrent urinary tract infection 06/26/2015 05/03/2021 Encounters Date Type Department Care Team Description 01/21/2025 MyChart Message Enc [facility] Medical [facility] Family and Sports Medicine - [place] [address] [place] [phone] Marcie Pollard NP medicine 10/26/2024 Results Follow-Up [facility] Family and Sports Medicine - [place] [address] [place] [phone] Pollard, Marcie M, RECORD KEEPER HEMOGLOBIN, GLYCOSYLATED, VITAMIN D, 25 OH, TSH W/REFLEX, Additional followed-up results: 6 10/23/2024 MyChart Message Enc [facility] Medical Group Family and Sports Medicine - [place] [phone] Marcie Pollard, RECORD KEEPER test results from Last 3 Months Immunizations Immunization Administration Dates Next Due DTaP (Daptacel) 03/15/2004,11/26/1999 Dtap (Acel-Immune) 02/02/1999,1998 Dtp (Generic) 1998 HPV4 (Gardasil) 09/04/2013,05/07/2013,02/20/2013 Hepatitis A (Havrix [address]) 09/21/2016 Hepatitis A (Havrix [address]) 02/20/2013 Hepatitis B Pediatric 02/02/1999,1998,06/20 Hib (Generic) 02/02/1999,1998,1998 Hib (Omni-Hib) 11/26/1999 MMR (MMRII) 03/15/2004,07/14/1999 Meningococcal (Menactra) 04/04/2016,02/20/2013 Polio IPV (Ipol) 03/15/2004,11/26/1999, 9,1998 Tdap (Generic) 12/15/2019,02/20/2013 Varicella (Varivax) 02/20/2013,07/14/1999 Family History Medical History Relation Comments Basal cell carcinoma Brother Asthma Father Basal cell carcinoma Father Heart Disease Father Hyperlipidemia Father Hypertension Father Asthma Mother Mental Health Mother Relation Status Comments Brother Father Mother Social History Tobacco Use Types Packs/Day Years Used Date Smoking Tobacco: Never Passive Smoke Exposure: Never Smokeless Tobacco: Never Tobacco Cessation:Counseling Given: Yes Comments:vape nictotine Alcohol Use Standard Drinks/Week Comments Yes 0 (1 standard drink = 0.6 oz pur e alcohol) rarely PHQ-2 Answer Date Recorded Patient Health Questionnaire-2 Score 1 10/17/2024 Comments No Sex and Gender Information Value Date Recorded Sex Assigned at Female 08/19/2024 10:49 PM SOLICITOR PATENT Legal Sex Female 7:26 PM CDT Gender Identity Not on file Sexual Orientation Not on file Last Filed Vital Signs Vital Sign Reading Time Taken Comments Blood Pressure 98/64 10/17/2024 12:05 PM CDT Pulse 85 10/17/2024 12:05 PM CDT Temperature 36.8 C (98.2 F) 10/17/2024 12:05 PM CDT Respiratory Rate 18 10/17/2024 12:05 PM CDT Oxygen Saturation 99% 10/17/2024 12:05 PM CDT Inhaled Oxygen Concentration - - Weight 96.4 kg (212 lb 9.6 oz) 10/17/2024 12:05 PM CDT Height 175.3 cm (5' 9) 10/17/2024 12:05 PM CDT Body Mass Index 31.4 10/17/2024 12:05 PM CDT Plan of Treatment Health Maintenance Due Date Last Done Comments Hepatitis C 2016 Cervical Cancer Screening Pap Smear (Age 21 to 29) Every 3 Years 06/01/2019 06/01/2016 Cervical Cancer Screening 06/01/2019 COVID-19 Vaccine ( season) 2024 Annual Physical 10/17/2025 10/17/2024 DTaP, Tdap and Td Vaccines (8 - Td or Tdap) 12/14/2029 12/15/2019, 02/20/2013, 03/15/2004, Additional history exists Hepatitis B Vaccines Completed 02/02/1999, 1998, 1998 HPV Vaccines Completed 09/04/2013, 04/19, 02/20/2013 Meningococcal Vaccine Completed 04/04/2016, 013 Chlamydia Screening Females ages 16-24 Discontinued 06/01/2016 PHQ-2 (Physician [place]) Completed 10/17/2024 Meningococcal B Vaccine Aged Out No l onger eligible based on patient's age to complete this topic Pneumococcal Vaccine: Pediatrics (0 to 5 Years) and At-Risk Patients (6 to 49 Years) Aged Out No longer eligible based on patient's age to complete this topic RSV Immunizations Under 20 Months Aged Out No longer eligible based on patient's age to complete this topic Insurance AETNA Advance Directives Documents on File Type Date Recorded Patient Java Development Manager Expl anation Legal Documents 07/20/2022 4:58 PM PB IB Cruz ricen [facility] Financial Supervisor Relationship Specialty Start Date End Date Marcie Pollard RECORD KEEPER [address] [place] [address] PCP - General Nurse Practitioner Family 04/26/21
--- OUTSIDE RECORDS SUMMARY | 2025-01-23 03:32 | XMS_ITS | Clinical Summary ---
Author Organization [facility] Address [address] [place] [address] Phone Care Team Providers Care Manager Of Pharmacy Name Role Phone Unavailable Primary Care Provider [...] Comments Hepatitis C Virus (HCV) Screening 1998 SARS-COV-2 Immunization ( season) 2024 Influenza Immunization (#1) 2025 Respiratory Syncytial Virus (RSV) Immunization (Adult) (1 [...]
--- OUTSIDE RECORDS SUMMARY | 2025-01-23 03:32 | XMS_ITS | Encounter Summary ---
Author Organization [facility] Address [address] [place] [address] Care Team Providers Care Director Prospect Name Role Phone Justin Andrews MD Primary Care Provider [phone] Jordon Chiang MD Unavailable Reason for Visit * Reason Onset Date Comments Question 12/09/2015 Encounter Details Date Type Department Care Team (Late st Contact Info) Description 12/09/2015 Telephone [facility] Pediatrics - [address] [facility] 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 She has a BATTERY TESTER FIELD appt scheduled 12/28/2015.Should she go back to ER and if she does will/can she be admitted? Should she have sooner appt? documented in this encounter Plan of Treatment Not on file documented as of this encounter Visit Diagnoses Not on filedocumented in this encounter Care Teams Director Prospect Relationship Specialty Start Date End Date Justin Andrews MD [address] [place] [address] PCP - General Pediatrics 12/07/15 04/10/16 Jordon Chiang MD [address] [place] [address] Resident Student Resident 01/21/16 documented as of this encounter
--- OUTSIDE RECORDS SUMMARY | 2025-01-23 03:32 | XMS_ITS | Encounter Summary ---
Author Organization [facility] Address [address] [place] [address] Care Team Providers Care Geometry Professor Name Role Phone Marcie Pollard NP Primary Care Provider + Encounter Details Date Type Department Care Team (Late st Contact Info) Description 10/23/2024 Social Strategy 1t Message Enc [facility] Medical Group Family and Sports Medicine - [place] [address] [place] [address] Marcie Pollard FISHING ROD ASSEMBLER [address] [place] [address] test results Social History Tobacco Use Types Packs/Day Years [...] Sex Assigned at Female 08/19/2024 10:49 PM 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 Legal Sex Female 7:26 PM CDT Gender Identity Not on file Sexual Orientation Not on file documented as of this encounter Progress Notes * Marcie Pollard NP - 10/24/2024 9:31 AM CDT They are not all back, still waiting for hormones documented in this encounter Plan of Treatment Not on file documented as of this encounter Visit Diagnoses Not on filedocumented in this encounter Additional Health Concerns Assessment Noted Time PHQ-9 Depression Total Score: 7 10/18/19 25 2:40 PM CDT documented as of this encounter Care Teams Geometry Professor Relationship Specialty Start Date End Date Marcie Pollard NP [address] [place] [address] PCP - General Nurse Practitioner Family 04/26/21 documented as of this encounter
--- OUTSIDE RECORDS SUMMARY | 2025-01-23 04:43 | XMS_ITS | Encounter Summary ---
Author Organization [facility] Address [address] [place] [address] Care Team Providers Care Toe Puller Name Role Phone Marcie Pollard FURNACE SETTER Primary Care Provider [phone] Encounter Details Date Type Department Care Team (Late st Contact Info) Description 09/17/2024 Profilepassert Message Enc [facility] Medical Group Family and Sports Medicine - [place] [address] [place] [address] Marcie Pollard FURNACE SETTER [address] [place] [address] Physical Social History Tobacco Use Types Packs/Day [...] Sex Assigned at Female 08/19/2024 10:49 PM COGNOS Legal Sex Female 7:26 PM CDT Gender Identity Not on file Sexual Orientation Not on file documented as of this encounter Plan of Treatment Not on file documented as of this encounter Visit Diagnoses Not on filedocumented in this encounter Additional Health Concerns Assessment Noted Time PHQ-9 Depression Total Score: 2 05/03/20 21 3:37 PM COGNOS documented as of this encounter Care Teams Toe Puller Relationship Specialty Start Date End Date Marcie Pollard NP [address] [place] [address] PCP - General Nurse Practitioner Family 04/26/21 documented as of this encounter
--- OUTSIDE RECORDS SUMMARY | 2025-01-23 04:43 | XMS_ITS | Clinical Summary ---
Author Organization [facility] Address [address] [place] [address] Care Team Providers Care Ocean Lifeguard Name Role Phone Jordon Chiang MD Unavailable Source Comments [facility],non-owned Affiliates and Associated Physician Practices is amultiple site organization consisting of ambulatory clinics and hospital sitesin [place], [place], [place] and [place]. This disclosure is being madepursuant to the Care Everywhere program and may not contain all information available regarding this patient. Last updated 18.[facility] Allergies No known active allergies Medications * [...] 30 Packet 0 12/07/2015 Active Lactobacillus-In ulin ([facility] Pay[facility]) capsuleIndicatio ns:Recurrent UTI Take 1 Cap by [...] defect Brother minna nary artery disease ? VT<65(female) Maternal Grandmother Sudd. <30 Maternal Uncle Anxiety Disorder Mother Bipolar Disorder Mother VT<65(female) Paternal Grandmother Congenital Heart defect Sister vsd Arrhythmia Neg Hx CVA<55(male) Neg Hx CVA<65(female) Neg Hx Cardiomyopathy Neg Hx Heart Surgery Neg Hx Long QT Syndrome Neg Hx VT<55(male) Neg Hx Marfan Syndrome Neg Hx Pacemaker [...] on file Legal Sex Female 5:39 AM SECTION LEADER SCREEN PRINTING Gender Identity Not on file Sexual Orientation Not on file Last Filed Vital Signs Vital Sign Reading Time Taken Comments Blood Pressure 108/68 07/20/2016 2:15 PM SECTION LEADER SCREEN PRINTING Pulse 72 04/11/2016 1:00 PM CDT Temperature 37.2 C (99 F) 12/23/2015 2:48 PM CDT Respiratory Rate 18 04/11/2016 1:00 PM CDT Oxygen Saturation 98% 12/23/2015 2:48 PM CDT RA Inhaled Oxygen Concentration - - Weight 65.4 kg (144 lb 2.9 oz) 07/20/2016 2:15 P M SECTION LEADER SCREEN PRINTING Height 172 cm (5' 7.72) 07/20/2016 2:15 PM SECTION LEADER SCREEN PRINTING Body Mass Index 22.11 07/20/2016 2:15 PM SECTION LEADER SCREEN PRINTING Plan of Treatment Health Maintenance Due Date [...] P24 AG PANEL Routine 06/01/2016 3:44 PM SECTION LEADER SCREEN PRINTING Sexually active at young age from Last 3 Months or Most Recently Relevant to Health Maintenance Results * HIV-1 HIV-2 ANTIBODY + HIV P24 AG PANEL (06/01/2016 3:44 PM SECTION LEADER SCREEN PRINTING) HIV1/2 Ab + P24 Ag Non Reactive Non Reactive 06/01/2016 5:21 PM SECTION LEADER SCREEN PRINTING [facility] Blood BLOOD SPECIMEN / Unknown Lab Venipuncture / Unknown 06/01/2016 3:44 PM SECTION LEADER SCREEN PRINTING 06/01/2016 4:06 PM SECTION LEADER SCREEN PRINTING Narrative [facility] - 06/01/2016 5:21 PM SECTION LEADER SCREEN PRINTING No Laboratory evidence of HIV infection. Kristen Monroy PRINCIPAL EMBEDDED SOFTWARE ENGINEER-DOPE POURER LAB - CHEMISTRY ORDERA BLES Final Result Performing Organization Address City/State/[facility] Co de Phone Number [facility] [address] [place] [address] from Last 3 Months or Most Recently Relevant to Health Maintenance Insurance [employer] SELF PAY NO INSURANCE Member Subscriber Plan / Payer (Ef fective for All Dates) Name:Clementina Camacho Member ID:Not on file Relation to Subscriber:Not on file Name:CLEMENTINA CAMACHO Subscriber ID:Not on file (Home) Address: [address] [place] [address] [place] [address] Payer ID:Not on file Group ID:Not on file Type:Self Pay Address: [place], [place] Care Teams Ocean Lifeguard Relationship Specialty Start Date End Date Jordon Chiang MD Resident Student Resident 01/21/16
--- OUTSIDE RECORDS SUMMARY | 2025-01-23 04:43 | XMS_ITS | Clinical Summary ---
Author Organization [facility] Address [address] [place] [address] Care Team Providers Care Rn Cardiology Name Role Phone Marcie Pollard FINISH SPECIALIST Primary Care Provider [phone] [phone] No known active allergies Medications busPIRone [...] Care Team Description 01/21/2025 MyChart Message Enc [facility] Medical [facility] Family and Sports Medicine - [place] [address] [place] [phone] Marcie Pollard NP medicine 10/26/2024 Results Follow-Up [facility] Family and Sports Medicine - [place] [address] [place] [phone] Pollard, Marcie M, FINISH SPECIALIST HEMOGLOBIN, GLYCOSYLATED, VITAMIN D, 25 OH, TSH W/REFLEX, Additional followed-up results: 6 10/23/2024 MyChart Message Enc [facility] Medical Group Family and Sports Medicine - [place] [phone] Marcie Pollard, FINISH SPECIALIST test results from Last 3 Months Immunizations [...] Sex Assigned at Female 08/19/2024 10:49 PM 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
--- OUTSIDE RECORDS SUMMARY | 2025-01-23 04:43 | XMS_ITS | Encounter Summary ---
Author Organization [facility] Address [address] [place] [address] Care Team Providers Care Hydro Technician Name Role Phone Marcie Pollard COMPUTER OPERATIONS TECHNICIAN Primary Care Provider + Encounter Details Date Type Department Care Team (Late st Contact Info) Description 05/16/2022 Cuutio Software Message Enc [facility] Medical Group Family and Sports Medicine - [place] [address] [place] [address] [facility] Schedule Appointment: Annual Physical Due Social [...] Sex Assigned at Female 08/19/2024 10:49 PM PLANT WORKER Legal Sex Female 7:26 PM CDT Gender Identity Not on file Sexual Orientation Not on file documented as of this encounter Plan of Treatment Not on file documented as of this encounter Visit Diagnoses Not on filedocumented in this encounter Additional Health Concerns Infection Onset Date Last Indicated Resolved Time COVID-19 Rule Out 05/12/2024 05/13/2024 05/13/2024 12:35 AM PLANT WORKER Assessment Noted Time PHQ-9 Depression Total Score: 2 05/03/20 21 3:37 PM PLANT WORKER documented as of this encounter Care Teams Hydro Technician Relationship Specialty Start Date End Date Marcie Pollard COMPUTER OPERATIONS TECHNICIAN [address] [place] [address] PCP - General Nurse Practitioner Family 04/26/21 documented as of this encounter
--- OUTSIDE RECORDS SUMMARY | 2025-01-23 04:43 | XMS_ITS | Encounter Summary ---
Author Organization [facility] Address [address] [place] [address] Care Team Providers Care Auto Parts Professional Name Role Phone Justin Andrews MD Primary Care Provider [phone] Jordon Chiang MD Unavailable Reason for Visit * Reason Onset Date Comments Question 12/09/2015 Encounter Details Date Type Department Care Team (Late st Contact Info) Description 12/09/[address] [facility] Pediatrics - [address] [facility] 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 Should she have sooner appt? documented in this encounter Plan of Treatment Not on file documented as of this encounter Visit Diagnoses Not on filedocumented in this encounter Care Teams Auto Parts Professional Relationship Specialty Start Date End Date Justin Andrews MD [address] [place] [address] PCP - General Pediatrics 12/07/15 04/10/16 Jordon Chiang MD [address] [place] [address] Resident Student Resident 01/21/16 documented as of this encounter
--- OUTSIDE RECORDS SUMMARY | 2025-01-23 04:43 | XMS_ITS | Clinical Summary ---
Author Organization [facility] Address [address] [place] [address] Phone Care Team Providers Care Manifest Clerk Name Role Phone Unavailable Primary Care Provider [...]
--- OUTSIDE RECORDS SUMMARY | 2025-01-23 04:43 | XMS_ITS | Encounter Summary ---
Author Organization [facility] Address [address] [place] [address] Care Team Providers Care Maintenance Helper Name Role Phone Marcie Pollard DEAN OF MEN Primary Care Provider + Encounter Details Date Type Department Care Team (Late st Contact Info) Description 01/21/2025 Fliqqt Message Enc [facility] Medical Group Family and Sports Medicine - [place] [address] [place] [address] Marcie Pollard DEAN OF MEN [address] [place] [address] medicine Social History Tobacco Use Types Packs/Day [...] Sex Assigned at Female 08/19/2024 10:49 PM BLOOD BANK ASSISTANT Legal Sex Female 7:26 PM CDT Gender [...] documented as of this encounter Care Teams Maintenance Helper Relationship Specialty Start Date End Date Marcie Pollard NP [address] [place] [address] PCP - General Nurse Practitioner Family 04/26/21 documented as of this encounter
--- OUTSIDE RECORDS SUMMARY | 2025-01-23 04:43 | XMS_ITS | Clinical Summary ---
Author Organization [facility] Address [address] [place] [address] Care Team Providers Care Retail Field Merchandiser Name Role Phone Marcie Pollard NP Primary Care Provider [phone] Allergies Active Allergy Reactions Criticality Noted Date [...] on file Legal Sex Female 11:05 PM REGULATORY AFFAIRS SPEC Gender Identity Not on file Sexual Orientation [...] 36.2 C (97.2 F) 07/28/2023 10:38 AM REGULATORY AFFAIRS SPEC Respiratory Rate 13 07/28/2023 2:40 PM REGULATORY AFFAIRS SPEC Oxygen Saturation 96% 02/16/2024 9:25 AM CDT [...] patient's age to complete [place] [address] AETNA SIG [id number] Care Teams Retail Field Merchandiser Relationship Specialty Start Date End Date Marcie Pollard NP [address] [place] [address] PCP - General Music Intern 02/16/24
--- OUTSIDE RECORDS SUMMARY | 2025-01-23 04:43 | XMS_ITS | Encounter Summary ---
Author Organization [facility] Address [address] [place] [address] Care Team Providers Care Heading Pinner Name Role Phone Marcie Pollard NP Primary Care Provider [phone] Encounter Details Date Type Department Care Team (Late st Contact Info) Description 10/23/2024 DCMobilityt Message Enc [facility] Medical Group Family and Sports Medicine - [place] [address] [place] [address] Marcie Pollard JEWELRY SALES COORDINATOR [address] [place] [address] test results Social History Tobacco Use Types [...] Sex Assigned at Female 08/19/2024 10:49 PM CONTROLS PROJECT ENGINEER Legal Sex Female 7:26 PM CDT Gender [...] documented as of this encounter Care Teams Heading Pinner Relationship Specialty Start Date End Date Marcie Pollard NP [address] [place] [address] PCP - General Nurse Practitioner Family 04/26/21 documented as of this encounter
--- NOTE | 2025-01-23 05:06 | ED_ITS ---
HPI - URI/Sore Throat General Chief Complaint: Unspecified Stated Complaint: R throat swollen Time Seen by Provider: 01/23/25 04:30 Source: patient Mode of arrival: ambulatory Limitations: no limitations History of Present Illness HPI Narrative: Patient presents with right throat swelling. Sore throat has been going on x3d. Also having itchy ears. Going on vacation Monday to [place]. Has been taking ibuprofen which helps, also Tylenol q6 hours. Texted her PCP and was prescribed Azithromycin; s/p 2 tablets taken. Feels like L lymph nodes are swollen and right ear is sore. Sees something in/on tonsils when she looks in mirror, thinks might be tonsil stones. No history of tonsillectomy, never had Strep. No fevers but chills and a headache. No dysphonia. Can swallow though notes pain with doing so. Related Data Allergies Allergy/AdvReac Type Severity Reaction Status Date / Time amoxicillin (From Augmentin) Allergy Unknown Unknown Verified 01/23/25 04:06 clavulanic acid (From Allergy Unknown Unknown Verified 01/23/25 04:06 Augmentin) PMFSH Past Medical History Medical History Miscarriage Depression Anxiety Recurrent UTI Asthma seasonal Surgical History Surgical History History of elective X 2 Family History Family History Father Asthma Heart disease Hypertension Mother Asthma Sibling Asthma VSD (ventricular septal defect) Epilepsy Social History Social History Smoking status: Current every day smoker Tobacco type: e-cigarettes/vaping Alcohol intake: current Alcohol use details: Stopped drinking over the summer Substance use: never Living arrangements: with family Gender identity (if verbalized by the patient): Female Spiritual care concerns: No Exam Narrative: GENERAL: Well-appearing, well-nourished, and in no acute distress. HEAD: Normocephalic, atraumatic. EYES: Non injected, non icteric. ENT: Nares clear, no rhinorrhea or epistaxis. Gross auditory acuity intact. Mild erythema in right EAC but bilateral TMs easily visualized w/o effusion/bulging. No tenderness with manipulation of pinnae. No trismus. Uvula midline. No submandibular swelling. Tonsillar hypertrophy , R > L which has white exudate. Tonsils are not kissing. No dysphonia. NECK: Supple. No meningismus. Anterior lymphadenopathy, L > R. CHEST: Speaking in full sentences. No respiratory distress. HEART: Regular rate and rhythm. . ABDOMEN: Soft, nondistended. No rigidity or guarding. Not peritoneal EXTREMITIES: Normal range of motion. No lower extremity edema. SKIN: Warm, dry, no rash. NEURO: No focal deficits. Alert and oriented. Answering questions. Following commands. Normal speech without aphasia or dysarthria. PSYCH: Normal mood and affect. Course Vital Signs Vital signs: Vital Signs Temperature 98.7 F 01/23/25 03:31 Pulse Rate 97 01/23/25 03:31 Respiratory Rate 14 01/23/25 03:31 Blood Pressure 119/69 01/23/25 03:31 Pulse Oximetry 99 01/23/25 03:31 Oxygen Delivery Room Air 01/23/25 03:31 Temperature 98.7 F 01/23/25 03:31 Pulse Rate 97 01/23/25 03:31 Respiratory Rate 14 01/23/25 03:31 Blood Pressure 119/69 01/23/25 03:31 Pulse Oximetry 99 01/23/25 03:31 Oxygen Delivery Room Air 01/23/25 03:31 MDM - URI/Sore Throat MDM Narrative Medical decision making narrative: Patient presents with URI symptoms, sore throat, lymphadenopathy, headache, otalgia. In the emergency department they are afebrile with vital signs within normal limits. Strep negative. Viral swab negative. Given one time dose of steroid. PCP had already prescribed antibiotics although this seems more viral. Given ketorolac and lozenge. Discharged with Rx for OTC analgesics/antipyretics and lozenges. Advised saltwater gargles. Otherwise stable for DC, non toxic appearing. Differential Diagnosis Differential diagnosis: Likely upper respiratory infection, otitis media, viral infection, influenza and pharyngitis Lab Data Attestation: I reviewed the patient's lab results. Labs: Lab Results 01/23/25 Range/Units 05:28 Influenza A (RT-PCR) Negative (Negative) Influenza B (RT-PCR) Negative (Negative) RSV (RT-PCR) Negative (Negative) SARS-CoV-2 RNA (RT-PCR) Negative (Negative) Group A Strep (PCR) Not detected (Negative) Discharge Plan Discharge Clinical Impression: Pharyngitis, Tonsillitis with exudate Patient Disposition: Home Condition: Stable Instructions: Antibiotic Form, Pharyngitis (ED), Tonsillitis (ED) Additional Instructions: You tested negative for strep. This is likely a viral process although you also tested negative for COVID, influenza a, influenza B, and RSV. Rest and maintain your hydration. You can gargle with saltwater to help. Lozenges have also been prescribed. You can continue to take the antibiotic you were prescribed earlier if you would like. Follow-up with your primary care provider. Acetaminophen /Tylenol (maximum 4000 mg per day) is safe to take with NSAIDs (ibuprofen/Motrin) for pain relief. Return to the emergency department with any new or worsening symptoms such as worsening pain, inability to swallow, voice changes/muffled voice, or inability to open your mouth, fever >100.4F, etc. Patient Language: Lithuanian Prescriptions: New Cepacol Sore Throat (dolly-men) 15-2.6 mg lozenge 1 kylah mucous membrane Q2-4H PRN (Reason: sore throat) Qty: 16 0RF ibuprofen 600 mg tablet 600 mg PO TID PRN (Reason: pain) Qty: 30 0RF acetaminophen 500 mg capsule 1,000 mg PO Q6H PRN (Reason: pain) Qty: 30 0RF No Action hydrocodone-acetaminophen 5-325 mg tablet 1 tablet PO Q4H PRN (Reason: pain) Qty: 20 0RF Follow-up/Referrals: Atul,Marcie Keller NP [Primary Care Provider] - Stand Alone Forms: Work/School Release IP Time of Disposition: 06:27
[2025-01-23] MEDS: BENZOCAINE/MENTHOL (*BKC) 18 EA LOZENGE 1 LOZENGE PO (05:37)
[2025-01-23 05:56] LABS: Strep Group A RT-PCR NOT DETECTED (Negative)
[2025-01-23 06:08] LABS: Influenza A QL RT-PCR Negative (Negative); Influenza B QL RT-PCR Negative (Negative); RSV RNA, RT-PCR Negative (Negative); SARS-CoV-2 RNA PCR Negative (Negative)
[2025-01-23] MEDS: KETOROLAC 30 MG/ML VIAL (*BKC) 15 MG IM (07:23)
== END 2025-01-23 07:30 | disposition home or self-care (01) ==
PROVIDERS: Emergency Provider Student in an Organized Health Care Education/Training Program; PCP Nurse Practitioner Family
DX: J03.90 Acute tonsillitis, unspecified (principal); J45.909 Unspecified asthma, uncomplicated; Z20.822 Contact with and (suspected) exposure to COVID-19; F17.290 Nicotine dependence, other tobacco product, uncomplicated; Z87.440 Personal history of urinary (tract) infections
CPT/HCPCS: 87637; 87651; 96372; 99283; A9270; J1885; J7512